=== PATIENT | male | born 2005 | race African-American/Black ===

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

== ENCOUNTER 2024-04-02 12:11 | Inpatient (IN) ==
--- NOTE | 2024-04-02 12:27 | Emergency Department Note ---
Impression & Plan Combative behavior, Intellectual disability, Tourette's syndrome, Autism ED Provider Note NAME: FLORIAN MACK AGE: 18 SEX: M : 2005 ARRIVES VIA: Ambulance INFORMANT: Parents, police officers ED PROVIDER(S): Landen Acosta MD CHIEF COMPLAINT: Violent behavior, history of seizures MEDICAL DECISION MAKING: Patient presents for the above. Additional history was obtained from the father. Patient is compliant with his medications had maybe some mild stuffy nose but no other changes in behavior other than noted today. IV was established and blood work was obtained. Initially the patient did require physical and chemical sedation as the patient would not follow instructions and was combative and trying to bite as well as kick and thrash. The patient did receive IM Ativan 2 mg x 2. After it was ascertained that the patient likely did not have a seizure but just change in behavior the patient was ordered IV Haldol 10 mg as well as IV Benadryl 25 mg. Patient subsequently was able to have an IV placed blood work was obtained CT head and chest x-ray. Patient's blood work is unremarkable. Patient has a normal white count H&H and platelet count kidney function is unremarkable with normal electrolytes and LFTs. Patient CT head and chest x-ray are negative. Patient did have a low- grade temp of 37 7 only had some mild stuffy nose but parents thought this is due to weather changes the patient has normal white count. Parents are concerned about taking the patient home given his behavior. I did speak the on- call hospitalist service Dr. Calderon and the patient was admitted to the medicine service. Critical Care: I have personally spent 47 minutes of critical care time in direct management of this patient. This includes bedside care, interpretation of diagnostic studies, and testing, discussion with consultants, patient, and family members, and other require inpatient management activities. This 47 minutes is in excess of all separately billable procedures. Discussion w/ other healthcare providers: Dr. Calderon inpatient medicine service Prior /Outside records reviewed: None Differential diagnosis: Infection, dehydration, CHI, ICH, seizure, metabolic abnormality, hypo/hyperglycemia, electrolyte imbalance, anemia, UTI, pneumonia, thyroid dysfunction among others were considered. Diagnostics, as interpreted by me: ECG: Sinus tachycardia with first-degree AV block, rate of 110 prolonged AR, normal axis no obvious STEMI. ST elevations noted anteriorly but no reciprocal changes likely repolarization. Cardiac monitoring: An order was placed for continuous cardiac monitoring. The monitor shows a rate of 125 with tachycardic and regular rhythm. Patient was placed on pulse oximetry Medical decision rules: None Imaging studies: I informally interpreted the patient's chest x-ray does not show obvious pneumonia or pneumothorax with formal report to follow. HPI: Much of the history is gathered from police as well as the parents who did present secondarily. The patient reportedly had an outburst of behavior. The patient reportedly had an episode like this about 4 weeks prior. The father had arrived at that time had not unwitnessed seizure at that time but was acting appropriately and the father took him home. Today was initially reported the patient may have had a seizure but after further discussion while the patient was at school today he had an episode of laughing through some director merit system and then became combative and violent. Patient subsequently was brought in here for further evaluation and treatment. When family arrived patient reportedly has been taking his medications. States that he had a little bit of a stuffy nose but no vomiting no diarrhea no cough. He has been acting his normal self. They did report that he did have this episode 4 weeks ago but there was no witnessed seizure at that time. No recent changes in medications or missed doses. He does follow with Rut Galindo with neurology and is to switch from Dr. Nielsen to Dr. Kohli as he is now an adult. Please officer from [facility] had stated that he has known him for the last 2 years and that this episode 4 weeks ago was a change in behavior. States typically does not act like this. PAST MEDICAL HISTORY: See Below PAST SURGICAL HISTORY: See Below SOCIAL HISTORY: See Below HOME MEDICATIONS: See Below ALLERGIES: See Below VITALS: See Below PHYSICAL EXAMINATION: GENERAL: Trying to bite, security trying to help hold the patient still with the patient was trying to thrash about. EYE EXAM: Normal conjunctiva. PERRL, no anisocoria and EOM's grossly intact w/o pain. OROPHARYNX: Moist mucus membranes, grossly normal dentition. NECK: Trachea midline, no stridor. Supple, no nuchal rigidity, no adenopathy, non-tender. No signs of meningismus. FROM of the neck with good chin to chest and neck extension. LUNGS: Clear to auscultation. Normal chest wall mechanics. HEART: Tachycardic and regular, no MRG. ABDOMEN: Abdomen soft, non-tender, no masses, no rebound or guarding. SKIN: No rashes and no bruising. UPPER EXTREMITIES: Upper extremities are grossly normal. LOWER EXTREMITIES: Grossly normal, no edema. NEURO EXAM: Combative not following commands moving all 4 extremities able to speak. Past Med/Surg History Problem List (Updated 04/03/24 @ 08:50 by Landen Acosta MD) Combative behavior (Acute) Altered mental state Intellectual disability (Acute) Autism (Chronic) Tourette's syndrome (Acute) Medical History PDD (pervasive developmental disorder), active Family History Mother Drug abuse Alcohol abuse Social History Smoking Status: Never smoker Second Hand Exposure: No; Do You Dip or Chew Tobacco: No; Hx Alcohol Use: No Hx Substance Use: No Preferred Language: Colombian Communication Ability: Effective Pit Crew Support Worker Required: No Beliefs That Will Affect Care: None marital status details: Lives with adoptive parents, 3 dogs and 2 cats Current Living Situation: Parent Other Information That Helps Us Care for You: Yes (Patient diagnosed with Austism, lives with parents at home) Feels Safe at Home: Yes Safety Concerns: Feels Safe At This Time Assistive Devices: None Allergies Allergies Allergy/AdvReac Type Severity Reaction Status Date / Time lamotrigine [From Lamictal] Allergy Unknown Unknown, Unverified 04/02/24 15:31 on file w/ [facility] valproic acid Allergy Unknown Severe Verified 04/02/24 15:31 aggression Home Meds Home Medications Medication Instructions Recorded Confirmed melatonin 5 mg capsule 5 mg PO HS 12/20/22 04/02/24 multivitamin 1 tab PO DAILY 12/20/22 04/02/24 risperidone 0.5 mg tablet 1.5 mg PO HS 12/20/22 04/02/24 (Risperdal) risperidone 1 mg tablet (Risperdal) 1 mg PO UD 12/20/22 04/02/24 buspirone 15 mg tablet 15 mg PO BID 04/02/24 04/02/24 cholecalciferol (vitamin D3) 10 10 mcg PO DAILY 04/02/24 04/02/24 mcg (400 unit) tablet (Vitamin D3) guanfacine 2 mg tablet 2 mg PO BID 04/02/24 04/02/24 Previous Rx's Medication Instructions Recorded carbamazepine 100 mg chewable 400 mg (4 x 100 mg) PO BID 30 days 03/05/24 tablet #240 tabs clobazam 10 mg tablet 5 mg (1/2 x 10 mg) PO HS #30 tabs 03/18/24 Results & Data (ED) Vital Signs Vital Signs - 24 hr 04/02/24 12:40 04/02/24 12:40 04/02/24 12:40 Temperature 37.7 C H Temperature Source Axillary Pulse Rate 119 H Pulse Rate [Apical] Respiratory Rate 28 H Respiratory Effort / Characteristics Respiratory Depth Respiratory Pattern Tachypnea Blood Pressure 144/86 H Blood Pressure [Right Arm] Blood Pressure Mean 105 Blood Pressure Mean [Right Arm] Pulse Oximetry 97 Oxygen Delivery Method Room Air Room Air Room Air Sepsis New/Unexplained Change in Mental Status Yes Sepsis Action Taken by Nursing No Action Required 04/02/24 14:12 04/02/24 14:25 04/02/24 16:00 Temperature Temperature Source Pulse Rate 120 H Pulse Rate [Apical] 120 H 133 H Respiratory Rate 16 19 Respiratory Effort / Characteristics Non-Labored Spontaneous Respiratory Depth Normal Normal Respiratory Pattern Blood Pressure Blood Pressure [Right Arm] 135/68 116/62 Blood Pressure Mean Blood Pressure Mean [Right Arm] 90 80 Pulse Oximetry 96 98 Oxygen Delivery Method Room Air Room Air Sepsis New/Unexplained Change in Mental Status Sepsis Action Taken by [facility] Medications Current Medication List: was personally reviewed by me Laboratory Data Attestation: I reviewed the patient's lab results. 04/02/24 12:35 04/02/24 12:35 Lab Results 04/02/24 04/02/24 Range/Units 12:35 12:55 WBC 8.78 (4.8-10.8) K/ul RBC 5.07 (4.70-6.10) M/uL Hgb 15.1 (14.0-18.0) g/dl POC Hgb 14.6 (14.0-18.0) g/dl Hct 43.5 (42.0-52.0) % POC Hct 43 (42-52) % MCV 85.8 (80.0-100.0) fL MCH 29.8 (25.0-34.0) pg MCHC 34.7 (32.0-36.0) g/dL RDW Std Deviation 39.1 (36.4-46.3) fL RDW Coeff of Enoc 12.6 (11.5-14.5) % Plt Count 254 (130-400) K/uL MPV 9.8 (9.4-12.4) fL POC Sodium 142 (135-144) mmol/L Sodium 143 (136-145) mmol/L POC Potassium 3.5 (3.3-5.0) mmol/L Potassium 3.5 (3.5-5.1) mmol/L POC Chloride 104 (101-112) mmol/L Chloride 104 (98-107) mmol/L Carbon Dioxide 27 (21-32) mmol/L POC Total CO2 26 (24-31) mmol/L Anion Gap 12 H (3-11) POC Anion Gap 17.0 (16-25) mmol/L POC BUN 9 (7-18) mg/dl BUN 10 (6-23) mg/dl Creatinine 0.88 (0.6-1.4) mg/dl POC Creatinine 0.9 mg/dl Est Cr Clr Drug Dosing Not Reportable eGFR 126.25 BUN/Creatinine Ratio 11.4 (10-20) Glucose 86 (70-99(Fasting)) mg/dl POC Glucose (other) 79 (70-99) mg/dl Calcium 9.8 (8.6-10.3) mg/dl POC Ioniz Calcium Tonya 1.16 mmol/l Phosphorus 2.4 L (2.5-4.9) mg/dl Magnesium 2.1 (1.7-2.4) mg/dl Total Bilirubin 0.3 (0.2-1.0) mg/dl Direct Bilirubin 0.0 (0-0.2) mg/dl AST 35 (13-39) U/L ALT 25 (7-52) U/L Alkaline Phosphatase 87 (34-104) U/L Total Protein 8.4 H (6.0-8.3) gm/dl Albumin 4.8 (3.4-5.0) gm/dl Administered Medications Acetaminophen (Acetaminophen 500 Mg Tab) 500 mg PO Q4H PRN PRN Reason: Pain or Agitation Stop: 05/03/24 08:02 Last Admin: 04/03/24 08:31 Dose: 500 mg Documented By: MAGALY Carbamazepine (Carbamazepine 100 Mg Chew Tab) 400 mg PO BID SHAYLEE Stop: 05/02/24 20:59 Last Admin: 04/02/24 20:32 Dose: 400 mg Documented By: BLAZE Guanfacine HCl (Guanfacine Hcl 1 Mg Tab) 2 mg PO BID SHAYLEE Stop: 05/02/24 20:59 Last Admin: 04/02/24 20:32 Dose: 2 mg Documented By: BLAZE Melatonin (Melatonin 3 Mg Tab) 3 mg PO [facility] Stop: 05/02/24 20:59 Last Admin: 04/02/24 20:32 Dose: 3 mg Documented By: BLAZE Miscellaneous (Order Awaiting Action) 1 each N/A QS [facility] Stop: 05/03/24 00:00 Last Admin: 04/02/24 23:36 Dose: Not Given Documented By: BLAZE Olanzapine (Olanzapine Zydis 5 Mg Orally Dis. Tab) 5 mg PO Q4H PRN PRN Reason: Agitation Stop: 05/03/24 08:09 Last Admin: 04/03/24 08:53 Dose: 5 mg Documented By: MAGALY Risperidone (Risperidone 0.5 Mg Tablet) 1.5 mg PO [facility] Stop: 05/02/24 20:59 Last Admin: 04/02/24 20:32 Dose: 1.5 mg Documented By: BLAZE Discontinued Medications Diphenhydramine HCl (Diphenhydramine 50 Mg/Ml Vial) 25 mg IV NOW STA Stop: 04/02/24 13:13 Last Admin: 04/02/24 13:16 Dose: 25 mg Documented By: SAGRARIO Haloperidol Lactate (Haloperidol Lactate 5 Mg/Ml 1 Ml Vial) 10 mg IV NOW STA Stop: 04/02/24 13:13 Last Admin: 04/02/24 13:17 Dose: 10 mg Documented By: SAGRARIO Haloperidol Lactate (Haloperidol Lactate 5 Mg/Ml 1 Ml Vial) 10 mg IV NOW STA Stop: 04/02/24 16:49 Last Admin: 04/02/24 16:52 Dose: 10 mg Documented By: MARISA Levetiracetam (Levetiracetam 500 Mg/5 Ml Vial) 2,000 mg IV NOW STA Stop: 04/02/24 12:24 Last Admin: 04/02/24 12:36 Dose: 2,000 mg Documented By: SAGRARIO Lorazepam (Lorazepam 2 Mg/1 Ml Vial) 2 mg IM NOW STA Stop: 04/02/24 12:24 Last Admin: 04/02/24 12:31 Dose: 2 mg Documented By: SAGRARIO Lorazepam (Lorazepam 1 Mg/1 Ml Syr Ed Inj Use) 2 mg IV ONE STA Stop: 04/02/24 12:49 Last Admin: 04/02/24 12:52 Dose: 2 mg Documented By: ESTEFANY Lorazepam (Lorazepam 2 Mg/1 Ml Vial) 2 mg IV NOW STA Stop: 04/02/24 16:16 Last Admin: 04/02/24 16:24 Dose: 2 mg Documented By: MARISA Imaging Data Radiologist's Impression: Chest X-Ray 04/02/24 12:23 XR chest 1V portable CLINICAL HISTORY: screener/seizure TECHNIQUE: Single frontal radiograph of the chest was obtained. Comparison: Comparison is made to chest radiograph 08/25/2015 FINDINGS: No lines and tubes are seen. The cardiomediastinal silhouette is normal. The lungs are clear. No evidence of pleural effusion or pneumothorax. IMPRESSION: No acute chest disease. ACT 112: Negative or not required by law. Electronically signed by: Ronnie Niño M.D. 04/02/2024 2:[address] 04/02/24 12:23 CT head/brain wo con CLINICAL HISTORY: 18 years-old Male with ?seizure, combative. Acute seizure- like activity TECHNIQUE: Multiple axial CT images of the head were obtained without contrast. A dose lowering technique was utilized adhering to the principles of ALARA. CT DOSE: 625.8 mGy.cm COMPARISON: None. FINDINGS: No acute intracranial hemorrhage, midline shift, intracranial mass, hydrocephalus, territorial ischemia or abnormal extra-axial collection. The calvarium is intact. Mild mucosal thickening of the paranasal sinuses. Partially imaged root of a left maxillary molar extends into the base of the left maxillary sinus. Mastoid air cells are clear. Unremarkable soft tissues and orbits. IMPRESSION: No acute intracranial abnormality. ACT 112: Negative or not required by law. The above report was generated using voice recognition software. It may contain grammatical, syntax or spelling errors. Electronically signed by: Rian Gray M.D. 04/02/2024 2:38 PM Discharge Plan Visit Data Chief Complaint: Seizure Stated Complaint: SEIZURE ED Provider: Landen Acosta Discharge Problem: Combative behavior, Intellectual disability, Tourette's syndrome, Autism Patient Disposition: Admitted As Inpatient Discharge Instructions Interventions: ED Discharge Assessment Last Done: 04/02/24 17:21
[2024-04-02] MEDS: LORazepam 2 MG/1 ML VIAL IM STA (12:31)
[2024-04-02] MEDS: levETIRAcetam 500 MG/5 ML VIAL IV STA (12:36)
[2024-04-02] MEDS: LORazepam 1 MG/1 ML SYR ED Inj Use IV STA (12:52)
[2024-04-02 12:59] LABS: Hematocrit (blood only) 43.5 % (42.0-52.0); Hemoglobin 15.1 g/dl (14.0-18.0); Mean Corpuscular Hemoglobin 29.8 pg (25.0-34.0); Mean Corpuscular Hgb Conc 34.7 g/dL (32.0-36.0); Mean Corpuscular Volume 85.8 fL (80.0-100.0); Mean Platelet Volume 9.8 fL (9.4-12.4); Platelet Count 254 K/uL (130-400); RDW Coefficient of Variation 12.6 % (11.5-14.5); RDW Standard Deviation 39.1 fL (36.4-46.3); Red Blood Count 5.07 M/uL (4.70-6.10); White Blood Count 8.78 K/ul (4.8-10.8)
[2024-04-02 13:10] LABS: iSTAT Creatinine 0.9 mg/dl; iSTAT Hemoglobin 14.6 g/dl (14.0-18.0); iSTAT Ionized Calcium 1.16 mmol/l; iSTAT Potassium 3.5 mmol/L (3.3-5.0)
[2024-04-02] MEDS: diphenhydrAMINE 50 MG/ML VIAL IV STA (13:16)
[2024-04-02] MEDS: HALOPERIDOL LACTATE 5 MG/ML 1 ML VIAL IV STA ×2 (13:17→16:52)
[2024-04-02 13:27] LABS: Alanine Aminotransferase 25 U/L (7-52); Albumin Level 4.8 gm/dl (3.4-5.0); Alkaline Phosphatase 87 U/L (34-104); Anion Gap 12 (3-11); Aspartate Aminotransferase 35 U/L (13-39); BUN Creatinine Ratio 11.4 (10-20); Bilirubin,Total 0.3 mg/dl (0.2-1.0); Blood Urea Nitrogen 10 mg/dl (6-23); Calcium 9.8 mg/dl (8.6-10.3); Carbon Dioxide 27 mmol/L (21-32); Chloride 104 mmol/L (98-107); Glucose 86 mg/dl (70-99(Fasting)); Magnesium 2.1 mg/dl (1.7-2.4); Phosphorus 2.4 mg/dl (2.5-4.9); Potassium 3.5 mmol/L (3.5-5.1); Sodium 143 mmol/L (136-145); Total Protein 8.4 gm/dl (6.0-8.3)
--- NOTE | 2024-04-02 14:31 | XRay Report ---
XR chest 1V portable CLINICAL HISTORY: screener/seizure TECHNIQUE: Single frontal radiograph of the chest was obtained. Comparison: Comparison is made to chest radiograph 08/25/2015 FINDINGS: No lines and tubes are seen. The cardiomediastinal silhouette is normal. The lungs are clear. No evid ence of pleural effusion or pneumothorax. IMPRESSION: No acute chest disease. ACT 112: Negative or not required by law. Electronically signed by: Ronnie Niño M.D. 04/02/2024 2:30 PM
--- NOTE | 2024-04-02 14:39 | CT Scan Report ---
CT head/brain wo con CLINICAL HISTORY: 18 years-old Male with ?seizure, combative. Acute seizure-like activity TECHNIQUE: Multiple axial CT images of the head were obtained without contrast. A dose lowering tech nique was utilized adhering to the principles of ALARA. CT DOSE: 625.8 mGy.cm COMPARISON: None. FINDINGS: No acute intracranial hemorrhage, midline shift, intracranial mass, hydrocephalus, territorial ischem ia or abnormal extra-axial collection. The calvarium is intact. Mild mucosal thickening of the paranasal sinuses. Partially imaged root of a left maxillary molar extends into the base of the left maxillary sinus. Mastoid air cells are clear . Unremarkable soft tissues and orbits. IMPRESSION: No acute intracranial abnormality. ACT 112: Negative or not required by law. The above report was generated using voice recognition software. It may contain grammatical, syntax o r spelling errors. Electronically signed by: Rian Gray M.D. 04/02/2024 2:38 PM
[2024-04-02] MEDS: LORazepam 2 MG/1 ML VIAL IV STA (16:24)
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
[2024-04-02] MEDS ORDERED: OLANZapine 10 MG/2.1 ML SDV IM PRN (19:34)
[2024-04-02] MEDS: MELATONIN 3 MG TAB PO SCH (20:32)
[2024-04-02] MEDS: carBAMazepine 100 MG CHEW TAB PO SCH (20:32)
[2024-04-02] MEDS: risperiDONE 0.5 MG TABLET PO SCH (20:32)
[2024-04-02] MEDS: guanFACINE HCL 1 MG TAB PO SCH (20:32)
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
[2024-04-03] MEDS: ACETAMINOPHEN 500 MG TAB PO PRN (08:31)
--- NOTE | 2024-04-03 08:36 | Electrocardiogram Report ---
Test Reason : Blood Pressure : */* mmHG Vent. Rate : 110 BPM Atrial Rate : 110 BPM P-R Int : 218 ms QRS Dur : 74 ms QT Int : 324 ms P-R-T Axes : 69 77 49 degrees QTcB Int : 438 ms Sinus tachycardia with 1st degree A-V block ST elevation in Anteroseptal ST elevation, most consistent with repolarization variant Right atrial enlargement Borderline ECG No previous ECGs available Confirmed by Himanshu Siegel ([id number]) on 04/03/2024 8:36:09 AM Referred By: REFERRED SELF Confirmed By: Himanshu Siegel
[2024-04-03] MEDS: OLANZapine ZYDIS 5 MG ORALLY DIS. TAB PO PRN (08:53)
[2024-04-03] MEDS: LORazepam 2 MG/1 ML VIAL IV STA (09:20)
[2024-04-03] MEDS: risperiDONE 1 MG TABLET PO SCH (09:21)
--- NOTE | 2024-04-03 09:59 | Neurology Consultation ---
Date of Consultation April 03, 2024 Assessment & Plan (1) Combative behavior: History of Present Illness Attending Physician: Flor Lewis MD History of Present Illness 18 yo male with known autism and seizure disorder, followed in our neuro clinic. pt had violent outburst and behavior issue. no clear report of seizure. pt this morning alert and active. admission HPI: Patient presents for the above. Additional history was obtained from the father. Patient is compliant with his medications had maybe some mild stuffy nose but no other changes in behavior other than noted today. IV was established and blood work was obtained. Initially the patient did require physical and chemical sedation as the patient would not follow instructions and was combative and trying to bite as well as kick and thrash. The patient did receive IM Ativan 2 mg x 2. After it was ascertained that the patient likely did not have a seizure but just change in behavior the patient was ordered IV Haldol 10 mg as well as IV Benadryl 25 mg. Patient subsequently was able to have an IV placed blood work was obtained CT head and chest x-ray. Patient's blood work is unremarkable. Patient has a normal white count H&H and platelet count kidney function is unremarkable with normal electrolytes and LFTs. Patient CT head and chest x-ray are negative. Patient did have a low- grade temp of 37 7 only had some mild stuffy nose but parents thought this is due to weather changes the patient has normal white count. Parents are concerned about taking the patient home given his behavior. I did speak the on- call hospitalist service Dr. Calderon and the patient was admitted to the medicine service. Allergies Allergy/AdvReac Type Severity Reaction Status Date / Time lamotrigine [From Lamictal] Allergy Unknown Unknown, Unverified 04/02/24 15:31 on file w/ [facility] valproic acid Allergy Unknown Severe Verified 04/02/24 15:31 aggression Home Medications Medication Instructions Recorded Confirmed Type melatonin 5 mg capsule 5 mg PO HS 12/20/22 04/02/24 History multivitamin 1 tab PO DAILY 12/20/22 04/02/24 History risperidone 0.5 mg tablet 1.5 mg PO HS 12/20/22 04/02/24 History (Risperdal) risperidone 1 mg tablet (Risperdal) 1 mg PO UD 12/20/22 04/02/24 History carbamazepine 100 mg chewable 400 mg (4 x 100 mg) PO BID 30 days 03/05/24 04/02/24 Rx tablet #240 tabs clobazam 10 mg tablet 5 mg (1/2 x 10 mg) PO HS #30 tabs 03/18/24 04/02/24 Rx buspirone 15 mg tablet 15 mg PO BID 04/02/24 04/02/24 History cholecalciferol (vitamin D3) 10 10 mcg PO DAILY 04/02/24 04/02/24 History mcg (400 unit) tablet (Vitamin D3) guanfacine 2 mg tablet 2 mg PO BID 04/02/24 04/02/24 History Patient History Medical History PDD (pervasive developmental disorder), active Family History Mother Drug abuse Alcohol abuse Social History Smoking Status: Never smoker Second Hand Exposure: No; Do You Dip or Chew Tobacco: No; Hx Alcohol Use: No Hx Substance Use: No Preferred Language: Romanian Communication Ability: Effective Managed Care Analyst Required: No Beliefs That Will Affect Care: None marital status details: Lives with adoptive parents, 3 dogs and 2 cats Current Living Situation: Parent Other Information That Helps Us Care for You: Yes (Patient diagnosed with Austism, lives with parents at home) Feels Safe at Home: Yes Safety Concerns: Feels Safe At This Time Assistive Devices: None Exam (Neuro) Physical Exam: HEENT: normocephalic grossly Neuro: Mental: Alert, hitting his hands against the rail, not following command (baseline). CN: Full EOM, symmetric face, Motor: No abnormal movements, moving all limbs b/l hitting the bed. Impression: 18 yo male with Autism and intellectual disability with behavioral outburst. Pt without suggestion of seizure. Recommendations: no need for further work up for seizure. psych consult for his behavioral issue. not much to add from neurology Chart reviewed I have spent more than 50% educating patient about potential diagnosis and neurological evaluation and coordinating care with patient's treatment team. Total time spent (including chart review and coordination of care): 35 min (this includes chart review). Results & Data Vital Signs (Past 12 Hours) Vital Signs Pulse 04/02/24 22:24 82 PG Care Time/CCT Total # of Minutes Spent Total Time Spent with Patient: Total time spent is greater than 50% in coordination of care (as documented) at patient's floor/unit and/or counseling patient: Coding Level of Care Code 39473 IN/OBS CONSULT LVL 2,35M Diagnoses Combative behavior R46.89
[2024-04-03 11:23] LABS: Appearance Urine Clear (Clear); Bilirubin Urine Negative (Negative); Blood Urine Negative (Negative); Color Urine Yellow; Glucose Urine UA Negative (Negative); Ketones Urine Negative (Negative); Leukocyte Esterase Urine Negative (Negative); Nitrite Urine Negative (Negative); Protein Urine Negative (Negative); Specific Gravity Urine 1.006 (1.000-1.030); Urobilinogen Urine Negative (Negative)
[2024-04-03 11:45] LABS: Amphetamines+Metham, Urine Neg (Neg); Barbiturates, Urine Neg (Neg); Benzodiazepine, Urine Neg (Neg); Cocaine, Urine Neg (Neg); Fentanyl, Urine Neg (Neg); MDMA (Ecstacy), Urine Neg (Neg); Marijuana, Urine Neg (Neg); Methadone, Urine Neg (Neg); Opiate, Urine Neg (Neg); Phencyclidine, Urine Neg (Neg)
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
[2024-04-03] MEDS: HALOPERIDOL LACTATE 5 MG/ML 1 ML VIAL IV STA (14:55)
[2024-04-03] MEDS: cloBAZam 10 MG TABLET PO SCH (20:41)
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
[2024-04-04] MEDS: OLANZapine 10 MG/2.1 ML SDV IM PRN (09:35)
[2024-04-04] MEDS: OLANZapine 10 MG/2.1 ML SDV IM ONE (16:33)
--- NOTE | 2024-04-04 17:25 | Communication Note ---
Date of Service: April 04, 2024 Notified by nursing at 1640 that patient was severely agitated. Chewing through bed sheets and rail guards. Additional 5mg Zyprexa given IM. Patient is not tolerating tele monitor and not able to have EKG at this time, therefore accurate QTc cannot be measured. Spoke with recreational therapy technician and last patient was on monitor was 0730 this am. QTc at that time was 414. Dr. Chne was contacted for further recommendations. Plan going forward will be Thorazine 12.5mg IM PRN and to attempt to place patient on monitor or obtain EKG if patient is calm and can tolerate. I was then contacted again by nursing at 1722 that patient remained agitated as above and was then starting to chew the mattress itself. Order was given for Thorazine 12.5mg IM at that time. Will continue to reassess patient. Patient remains 1:1 and in 4 point restraints. Resident Activity Tracking Resident Involvement: Resident Care Provided Care Provided: Adult Hospital Medicine
[2024-04-04] MEDS: chlorproMAZINE HCL 25 MG/ML AMP IM PRN (17:45)
[2024-04-04] MEDS: risperiDONE 2 MG TABLET PO SCH (20:00)
[2024-04-04] MEDS: chlorproMAZINE HCL 25 MG/ML AMP IV ONE (21:14)
--- NOTE | 2024-04-05 04:28 | Communication Note ---
Date of Service: April 05, 2024 Patient seen and examined at bedside 0200. Resting peacefully w/ unlabored breathing, clinically well perfused. Restraints ongoing. Did require additional now dose of Thorazine 12.5 mg at 2113.
[2024-04-05] MEDS: risperiDONE 0.5 MG TABLET PO SCH (08:47)
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
[2024-04-05] MEDS: POLYETHYLENE (MIRALAX) 17 GM PACK PO SCH (14:53)
[2024-04-05] MEDS: chlorproMAZINE HCL 25 MG/ML AMP IM SCH (19:24)
--- NOTE | 2024-04-06 11:12 | Hospitalist Progress Note ---
"Date of Service April 06, 2024 Assessment & Plan (1) Altered mental state: (2) Intellectual disability: (3) Autism: (4) Constipation: Plan Altered Mental State | Agitation/Aggression -Patient with history of ASD, intellectual disability, tourette's and seizure disorder -Per chart review, police were called to the patient's school due to aggressive behavior which lead to evaluation in ED -Violent and combative which is unlike his normal behavior, per his parents this is the worst he has been. Increasing combativeness in the past month -Received Haldol 10mg IV on admission, was able to rest overnight afterwards -No infectious source found despite mildly elevated temp and historically does not react like this with infections -UA negative today as well as negative urine tox screen -Minimally verbal at baseline but able to tell his parents what he needs -Continues to require restraints for safety of patient and staff -Patient's dad notes that patient has perviously completed GeneSight testing with Dr. Khan. Denies any known triggers for his current behavior but reports he had significant history of trauma -Psychiatry consulted. Recommendations as below: -Consider EEG. Neurology evaluation (as below) indicating a lower suspicion for seizure activity as etiology of behavior -Continue risperidone, Guanfacine, melatonin, carbamazepine -Consider increase of risperdone to 1.5mg qAM and 2mg qHS - this was done beginning with HS dose 04/04/24 -Avoid Haldol as this can cause akathisia or EPS which can worsen restlessness and muscle pain -If concern for muscle stiffness/acute dystonia arises then give: Benadryl 50mg IM x1 STAT For behavioral emergency would use: * Thorazine seems more effective than Zyprexa, * Thorazine 12.5mg IM PRN, avoid exceeding 50mg in 24hrs * QTc remains less than 500 on monitor -Continue scheduled Thorazine, awaiting further psychiatry recommendations. -Consider switch to PO if patient continues to be cooperative -Remove restraints as tolerated Note: Upon discussion between case management and parents, family does not feel that they will be able to take the patient home with his current level of aggression and would like to pursue options for placement. Paperwork initiated by case management for MA-51 evaluation to determine eligibility for intermediate care services, to be completed by attending physician. 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, 3-4 episodes in his lifetime -Received Keppra in the ER -Previously follows with [facility], now following with Mary Freitas ([facility] [place] [facility] -Current home meds include carbamazepine 400mg po BID, clobazam 10mg 1/2 tab po qhs -Neurology consulted, appreciate recommendations -Upon evaluation today, neurology has lower suspicion for current seizure activity and recommending psych evaluation Constipation -Miralax 34g BID with juice VTE Prophylaxis - low risk Diet - safe tray Code Status: Full Code Admission and Anticipated Discharge Date Admission Date: April 02, 2024 Supervising Physician Co-Signing Physician Notes Attending Physician Supervision Note: I independently interviewed and examined the patient and verified the blackwell history and physical, reviewed labs and image studies and agree with findings and care plan noted above. Doing much better this am. Off restraints. Responsive. Had a bowel movement this am. Acute behavior management - Improved. - meds outlined as above if needed again. Seizure - Has history of seizure activities while he was being weaned off of Tegretol and due to being seizure free and later weaning off clobazam. - No seizure concern per neuro. ASA - risperidone dose increased as above after consulting with psych. Case management working on placement. Subjective Patient seen and evaluated at bedside this morning. No acute events overnight. Since starting scheduled thorazine patient has been taking his PO medications and has been much more cooperative. This am leg restraints were removed. Patient was in bed, calm, and interactive with staff. Review of Systems Review of Systems: reviewed, per HPI Physical Exam Physical Exam: Constitutional: awake, interactive, leg restraints removed HEENT: NCAT, no conjunctival injection CV: clinically well perfused Resp: no increased WOB GI: non distended MSK: no gross deformities appreciated Skin: warm, dry, no rash appreciated Neuro: alert Results & Data Results & Data Vital Signs (Past 12 Hours) Vital Signs Temp Pulse Resp BP Pulse Ox O2 Del Method 04/06/24 07:07 36.6 C 80 19 115/72 100 Room Air 04/06/24 02:30 36.6 C 75 20 113/72 100 Room Air Resident Activity Tracking Resident Involvement: Resident Care Provided Care Provided: Adult Hospital Medicine"
[2024-04-06] MEDS: OLANZapine 10 MG/2.1 ML SDV IM ONE (12:13)
--- NOTE | 2024-04-06 22:57 | Electrocardiogram Report ---
Test Reason : Blood Pressure : */* mmHG Vent. Rate : 69 BPM Atrial Rate : 69 BPM P-R Int : 182 ms QRS Dur : 92 ms QT Int : 368 ms P-R-T Axes : 62 80 58 degrees QTcB Int : 394 ms Sinus rhythm with marked sinus arrhythmia ST elevation, consider early repolarization Borderline ECG When compared with ECG of 02-Apr-2024 17:34, [place] interval has decreased Vent. rate has decreased by 41 bpm Confirmed by Lloyd May ([id number]) on 04/06/2024 10:56:42 PM Referred By: REFERRED SELF Confirmed By: Lloyd May
--- NOTE | 2024-04-06 22:58 | Electrocardiogram Report ---
Test Reason : Blood Pressure : */* mmHG Vent. Rate : 95 BPM Atrial Rate : 95 BPM P-R Int : 164 ms QRS Dur : 76 ms QT Int : 324 ms P-R-T Axes : 62 62 57 degrees QTcB Int : 407 ms Normal sinus rhythm Possible Left atrial enlargement Possible Acute pericarditis Abnormal ECG When compared with ECG of 05-Apr-2024 20:52, No significant change was found Confirmed by Lloyd May ([id number]) on 04/06/2024 10:58:30 PM Referred By: REFERRED SELF Confirmed By: Lloyd May
[2024-04-07] MEDS ORDERED: chlorproMAZINE HCL 25 MG/ML AMP IM PRN (01:21)
--- NOTE | 2024-04-07 09:45 | Hospitalist Progress Note ---
"Date of Service April 07, 2024 Assessment & Plan (1) Altered mental state: (2) Intellectual disability: (3) Autism: (4) Constipation: Plan Altered Mental State | Agitation/Aggression -Patient with history of ASD, intellectual disability, tourette's and seizure disorder -Per chart review, police were called to the patient's school due to aggressive behavior which lead to evaluation in ED -Violent and combative which is unlike his normal behavior, per his parents this is the worst he has been. Increasing combativeness in the past month -Received Haldol 10mg IV on admission, was able to rest overnight afterwards -No infectious source found despite mildly elevated temp and historically does not react like this with infections -UA negative today as well as negative urine tox screen -Minimally verbal at baseline but able to tell his parents what he needs -Continues to require restraints for safety of patient and staff -Patient's dad notes that patient has perviously completed GeneSight testing with Dr. Khan. Denies any known triggers for his current behavior but reports he had significant history of trauma -Psychiatry consulted. Recommendations as below: -Consider EEG. Neurology evaluation (as below) indicating a lower suspicion for seizure activity as etiology of behavior -Continue risperidone, Guanfacine, melatonin, carbamazepine -Consider increase of risperdone to 1.5mg qAM and 2mg qHS - this was done beginning with HS dose 04/04/24 -Avoid Haldol as this can cause akathisia or EPS which can worsen restlessness and muscle pain -If concern for muscle stiffness/acute dystonia arises then give: Benadryl 50mg IM x1 STAT For behavioral emergency would use: * Thorazine seems more effective than Zyprexa, * Thorazine 12.5mg IM PRN, avoid exceeding 50mg in 24hrs * QTc remains less than 500 on monitor Note: Upon discussion between case management and parents, family does not feel that they will be able to take the patient home with his current level of aggression and would like to pursue options for placement. Paperwork initiated by case management for MA-51 evaluation to determine eligibility for superintendent terminal care services, to be completed by attending physician. 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, 3-4 episodes in his lifetime -Received Keppra in the ER -Previously follows with [facility], now following with Mary Freitas ([facility] [place] [facility]) -Current home meds include carbamazepine 400mg po BID, clobazam 10mg 1/2 tab po qhs -Neurology consulted, appreciate recommendations -Upon evaluation today, neurology has lower suspicion for current seizure activity and recommending psych evaluation Constipation -Miralax 34g BID with juice VTE Prophylaxis - low risk Diet - safe tray Code Status: Full Code Admission and Anticipated Discharge Date Admission Date: April 02, 2024 Supervising Physician Co-Signing Physician Notes I personally examined the patient and verified all blackwell points of history and exam, discussed case, and agree with decision making with Dr Camila JAMISON present pt sleeping - notes he ate well, has been calm, had just said that he was tired vitals noted sleeping comfortably no distress Acute behavior management - Improved. - meds if needed again. Seizure - Has history of seizure activities while he was being weaned off of Tegretol and due to being seizure free and later weaning off clobazam. - No seizure concern per neuro. ASA - risperidone dose increased as above after consulting with psych. Case management working on placement. stable for medical Subjective Patient seen and evaluated at bedside this morning. No acute events overnight. Since starting scheduled thorazine patient has been taking his PO medications and has been much more cooperative. This am leg restraints were removed. Patient was in bed, calm, and interactive with staff. Review of Systems Review of Systems: reviewed, per HPI Physical Exam Physical Exam: Constitutional: awake, interactive, leg restraints removed HEENT: NCAT, no conjunctival injection CV: clinically well perfused Resp: no increased WOB GI: non distended MSK: no gross deformities appreciated Skin: warm, dry, no rash appreciated Neuro: alert Results & Data Results & Data Vital Signs (Past 12 Hours) Vital Signs Temp Pulse Resp BP Pulse Ox O2 Del Method 04/07/24 06:55 37.0 C 85 20 125/79 100 Room Air 04/07/24 03:30 37.0 C 85 18 107/68 99 Room Air 04/06/24 22:41 37.3 C 96 H 18 122/70 97 Room Air Resident Activity Tracking Resident Involvement: Resident Care Provided Care Provided: Adult Hospital Medicine"
--- NOTE | 2024-04-07 16:42 | Billing Data ---
Date of Service April 07, 2024 Coding Level of Care Code 78728 SUB INP/OBS CARE
--- NOTE | 2024-04-08 05:58 | Electrocardiogram Report ---
Test Reason : Blood Pressure : */* mmHG Vent. Rate : 90 BPM Atrial Rate : 90 BPM P-R Int : 164 ms QRS Dur : 76 ms QT Int : 334 ms P-R-T Axes : 67 71 50 degrees QTcB Int : 408 ms Normal sinus rhythm Possible Acute pericarditis vs early repolarization Normal ECG When compared with ECG of 06-Apr-2024 12:08, No significant change was found Confirmed by Lloyd May ([id number]) on 04/08/2024 5:58:14 AM Referred By: REFERRED SELF Confirmed By: Lloyd May
--- NOTE | 2024-04-08 10:29 | Hospitalist Progress Note ---
"Date of Service April 08, 2024 Assessment & Plan (1) Altered mental state: (2) Intellectual disability: (3) Autism: (4) Constipation: Plan Altered Mental State | Agitation/Aggression -Patient with history of ASD, intellectual disability, tourette's and seizure disorder -Per chart review, police were called to the patient's school due to aggressive behavior which lead to evaluation in ED -Violent and combative which is unlike his normal behavior, per his parents this is the worst he has been. Increasing combativeness in the past month -Received Haldol 10mg IV on admission, was able to rest overnight afterwards -No infectious source found despite mildly elevated temp and historically does not react like this with infections -UA negative today as well as negative urine tox screen -Minimally verbal at baseline but able to tell his parents what he needs -Continues to require restraints for safety of patient and staff -Patient's dad notes that patient has perviously completed GeneSight testing with Dr. Khan. Denies any known triggers for his current behavior but reports he had significant history of trauma -Psychiatry consulted. Recommendations as below: -Consider EEG. Neurology evaluation (as below) indicating a lower suspicion for seizure activity as etiology of behavior -Continue risperidone, Guanfacine, melatonin, carbamazepine -Consider increase of risperdone to 1.5mg qAM and 2mg qHS - this was done beginning with HS dose 04/04/24 -Avoid Haldol as this can cause akathisia or EPS which can worsen restlessness and muscle pain -If concern for muscle stiffness/acute dystonia arises then give: Benadryl 50mg IM x1 STAT For behavioral emergency would use: * Thorazine seems more effective than Zyprexa, * Thorazine 12.5mg IM PRN, avoid exceeding 50mg in 24hrs * QTc remains less than 500 on monitor Note: Upon discussion between case management and parents, family does not feel that they will be able to take the patient home with his current level of aggression and would like to pursue options for placement. Paperwork initiated by case management for MA-51 evaluation to determine eligibility for terminal system operator care services, to be completed by attending physician. 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, 3-4 episodes in his lifetime -Received Keppra in the ER -Previously follows with [facility], now following with Mary Freitas ([facility] [place] [place] [facility]) -Current home meds include carbamazepine 400mg po BID, clobazam 10mg 1/2 tab po qhs -Neurology consulted, appreciate recommendations -Upon evaluation , neurology has lower suspicion for current seizure activity and recommending psych evaluation Constipation -Miralax 34g BID with juice VTE Prophylaxis - low risk Diet - safe tray Code Status: Full Code Admission and Anticipated Discharge Date Admission Date: April 02, 2024 Supervising Physician Co-Signing Physician Notes I personally examined the patient and verified all blackwell points of history and exam, discussed case, and agree with decision making with Dr Jensen similar to yesterday - sleeping comfortably no distress and staffing notes no needs vitals noted sleeping comfortably no distress Acute behavior management - Improved. - meds if needed again. Seizure - Has history of seizure activities while he was being weaned off of Tegretol and due to being seizure free and later weaning off clobazam. - No seizure concern per neuro. ASA - risperidone dose increased as above after consulting with psych. Case management working on placement, appreciate efforts. stable for medical Subjective Patient seen and evaluated at bedside this morning. Patient was in bed, calm, and interactive with staff. No any new concerns. Physical Exam Physical Exam: Constitutional: awake, interactive, leg restraints removed HEENT: NCAT, no conjunctival injection CV: clinically well perfused Resp: no increased WOB GI: non distended MSK: no gross deformities appreciated Skin: warm, dry, no rash appreciated Neuro: alert Results & Data Results & Data Vital Signs (Past 12 Hours) Vital Signs Temp Pulse Resp BP Pulse Ox O2 Del Method 04/08/24 08:02 37.0 C 100 H 18 131/80 96 Room Air 04/07/24 22:36 36.8 C 85 16 120/82 98 Room Air"
--- NOTE | 2024-04-08 14:30 | Billing Data ---
Date of Service April 08, 2024 Coding Level of Care Code 38784 SUB INP/OBS CARE
--- NOTE | 2024-04-08 23:32 | Electrocardiogram Report ---
Test Reason : Blood Pressure : */* mmHG Vent. Rate : 86 BPM Atrial Rate : 86 BPM P-R Int : 180 ms QRS Dur : 72 ms QT Int : 336 ms P-R-T Axes : 112 109 154 degrees QTcB Int : 402 ms Normal sinus rhythm Limb lead reversal Possible Acute pericarditis vs early repolarization Abnormal ECG When compared with ECG of 07-Apr-2024 05:50, Limb lead reversal is now present Confirmed by Lloyd May ([id number]) on 04/08/2024 11:31:32 PM Referred By: REFERRED SELF Confirmed By: Lloyd May
--- NOTE | 2024-04-09 12:08 | Hospitalist Progress Note ---
"Date of Service April 09, 2024 Assessment & Plan (1) Altered mental state: (2) Intellectual disability: (3) Autism: (4) Constipation: Plan Altered Mental State | Agitation/Aggression -Patient with history of ASD, intellectual disability, tourette's and seizure disorder -Per chart review, police were called to the patient's school due to aggressive behavior which lead to evaluation in ED -Violent and combative which is unlike his normal behavior, per his parents this is the worst he has been. Increasing combativeness in the past month -Received Haldol 10mg IV on admission, but doesn't require it thereafter. -UA negative today as well as negative urine tox screen -Minimally verbal at baseline but able to tell his parents what he needs - Doesn't require any restrains and medicine now. - Thorazine 12.5 mg PRN q6H if patient got agitated again. Note: Upon discussion between case management and parents, family does not feel that they will be able to take the patient home with his current level of aggression and would like to pursue options for placement. Paperwork initiated by case management for MA-51 evaluation to determine eligibility for correction care services, to be completed by attending physician. 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, 3-4 episodes in his lifetime -Received Keppra in the ER -Previously follows with [facility], now following with Mary Freitas ([facility] [place] [facility]) -Current home meds include carbamazepine 400mg po BID, clobazam 10mg 1/2 tab po qhs -Upon evaluation , neurology has lower suspicion for current seizure activity.Later weaning off clobazam. -Risperidone dose has been increased after consulting with Psychiatrist. Constipation -Miralax 34g BID with juice VTE Prophylaxis - low risk Diet - safe tray Code Status: Full Code Admission and Anticipated Discharge Date Admission Date: April 02, 2024 Supervising Physician Co-Signing Physician Notes I personally examined the patient and verified all blackwell points of history and exam, discussed case, and agree with decision making with Dr Camila mendez, no complaints, playing video games. vitals noted nad heent nc at mmm breathing unlabored no accessory muscles good effort skin no rashes no pallor or icterus Acute behavior management - Improved. - meds if needed again. Seizure - Has history of seizure activities while he was being weaned off of Tegretol and due to being seizure free and later weaning off clobazam. - No seizure concern per neuro. ASA - risperidone dose increased as above after consulting with psych. Case management working on placement, appreciate efforts. no new issues Subjective Patient seen and evaluated at bedside this morning. Patient was in bed, calm,playing video games and interactive with staff. No any new concerns. Review of Systems Review of Systems: reviewed, per HPI Physical Exam Physical Exam: Constitutional: awake, interactive, leg restraints removed HEENT: NCAT, no conjunctival injection CV: clinically well perfused Resp: no increased WOB GI: non distended MSK: no gross deformities appreciated Skin: warm, dry, no rash appreciated Neuro: alert Results & Data Results & Data Vital Signs (Past 12 Hours) Vital Signs Temp Pulse Resp BP Pulse Ox O2 Del Method 04/09/24 11:54 36.9 C 79 19 122/86 97 Room Air 04/09/24 08:31 36.9 C 84 18 113/69 99 Room Air 04/09/24 05:40 37.0 C 95 H 16 120/79 100 Room Air"
--- NOTE | 2024-04-09 13:05 | Billing Data ---
Date of Service April 09, 2024 Coding Level of Care Code 40562 SUB INP/OBS CARE
--- NOTE | 2024-04-09 19:07 | Electrocardiogram Report ---
Test Reason : Blood Pressure : */* mmHG Vent. Rate : 94 BPM Atrial Rate : 94 BPM P-R Int : 308 ms QRS Dur : 74 ms QT Int : 310 ms P-R-T Axes : 47 74 43 degrees QTcB Int : 387 ms Sinus rhythm with 1st degree A-V block Voltage criteria for left ventricular hypertrophy Early repolarization Abnormal ECG When compared with ECG of 08-Apr-2024 06:33, [place] interval has increased QRS axis Shifted left Limb lead reversal is no longer present Confirmed by Lloyd May ([id number]) on 04/09/2024 7:07:16 PM Referred By: REFERRED SELF Confirmed By: Lloyd May
--- NOTE | 2024-04-10 17:37 | Hospitalist Progress Note ---
"Date of Service April 10, 2024 Assessment & Plan (1) Altered mental state: (2) Intellectual disability: (3) Autism: (4) Constipation: Plan Altered Mental State | Agitation/Aggression -Patient with history of ASD, intellectual disability, tourette's and seizure disorder -Per chart review, police were called to the patient's school due to aggressive behavior which lead to evaluation in ED -Violent and combative which is unlike his normal behavior, per his parents this is the worst he has been. Increasing combativeness in the past month -Received Haldol 10mg IV on admission, but doesn't require it thereafter. -UA negative today as well as negative urine tox screen -Minimally verbal at baseline but able to tell his parents what he needs - Doesn't require any restrains and medicine now. - Thorazine 12.5 mg PRN q6H if patient got agitated again. Note: Upon discussion between case management and parents, family does not feel that they will be able to take the patient home with his current level of aggression and would like to pursue options for placement. Paperwork initiated by case management for [facility] evaluation to determine eligibility for residential care services, to be completed by attending physician. 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 -Risperidone dose has been increased after consulting with Psychiatrist. Constipation -Miralax 34g BID with juice VTE Prophylaxis - low risk Diet - safe tray Code Status: Full Code Admission and Anticipated Discharge Date Admission Date: April 02, 2024 Supervising Physician Co-Signing Physician Notes I personally examined the patient and verified all blackwell points of history and exam, discussed case, and agree with decision making with Dr Cmaila Walker playing video games laughing. No new issues vitals noted nad heent nc at mmm breathing unlabored no accessory muscles good effort skin no rashes no pallor or icterus Acute behavior management - Improved. - meds if needed again. Seizure - Has history of seizure activities while he was being weaned off of Tegretol and due to being seizure free and later weaning off clobazam. - No seizure concern per neuro. ASA - risperidone dose increased as above after consulting with psych. Case management working on placement, appreciate efforts. continue current course Subjective Patient seen and evaluated at bedside this morning. Patient was in bed, calm,playing video games and interactive with staff. No any new concerns. Review of Systems Review of Systems: reviewed, per HPI Physical Exam Physical Exam: Constitutional: awake, interactive, leg restraints removed HEENT: NCAT, no conjunctival injection CV: clinically well perfused Resp: no increased WOB GI: non distended MSK: no gross deformities appreciated Skin: warm, dry, no rash appreciated Neuro: alert Results & Data Results & Data Vital Signs (Past 12 Hours) Vital Signs Temp Pulse Resp BP Pulse Ox O2 Del Method 04/10/24 14:04 36.5 C 79 18 113/61 94 Room Air 04/10/24 11:04 36.5 C 79 18 123/74 98 Room Air 04/10/24 08:03 36.5 C 80 20 117/77 98 Room Air"
--- NOTE | 2024-04-10 18:31 | Billing Data ---
Date of Service April 10, 2024 Coding Level of Care Code 50658 SUB INP/OBS CARE
--- NOTE | 2024-04-11 06:37 | Hospitalist Progress Note ---
"Date of Service April 11, 2024 Assessment & Plan (1) Altered mental state: (2) Intellectual disability: (3) Autism: (4) Constipation: Plan Altered Mental State | Agitation/Aggression -Patient with history of ASD, intellectual disability, tourette's and seizure disorder -Per chart review, police were called to the patient's school due to aggressive behavior which lead to evaluation in ED -Violent and combative which is unlike his normal behavior, per his parents this is the worst he has been. Increasing combativeness in the past month -Received Haldol 10mg IV on admission, but doesn't require it thereafter. -UA negative today as well as negative urine tox screen -Minimally verbal at baseline but able to tell his parents what he needs - Doesn't require any restrains and medicine now. - Thorazine 12.5 mg PRN q6H if patient got agitated again. Note: Upon discussion between case management and parents, family does not feel that they will be able to take the patient home with his current level of aggression and would like to pursue options for placement. He is accepted at a personal long term on 04/26/24. 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 -Risperidone dose has been increased after consulting with Psychiatrist. Constipation -Miralax 34g BID with juice VTE Prophylaxis - low risk Diet - safe tray Code Status: Full Code Admission and Anticipated Discharge Date Admission Date: April 02, 2024 Supervising Physician Co-Signing Physician Notes I personally examined the patient and verified all blackwell points of history and exam, discussed case, and agree with decision making with Dr Camila diaz. no new issues. vitals noted nad sleeping comfortably. heent nc at mmm breathing unlabored no accessory muscles good effort skin no rashes no pallor or icterus Acute behavior management - Improved. - meds if needed again. Seizure - Has history of seizure activities while he was being weaned off of Tegretol and due to being seizure free and later weaning off clobazam. - No seizure concern per neuro. ASA - risperidone dose increased as above after consulting with psych. Case management working on placement, appreciate efforts. continue current course, no changes today Subjective Patient seen and evaluated at bedside this morning. Patient was in bed, calm, playing video games and interactive with staff. No any new concerns. Review of Systems Review of Systems: reviewed, per HPI Physical Exam Physical Exam: Constitutional: awake, interactive, leg restraints removed HEENT: NCAT, no conjunctival injection CV: clinically well perfused Resp: no increased WOB GI: non distended MSK: no gross deformities appreciated Skin: warm, dry, no rash appreciated Neuro: alert Results & Data Results & Data Vital Signs (Past 12 Hours) Vital Signs Temp Pulse Resp BP Pulse Ox O2 Del Method 04/10/24 22:33 36.9 C 76 16 123/76 98 Room Air 04/10/24 19:45 Room Air"
--- NOTE | 2024-04-11 18:58 | Billing Data ---
Date of Service April 11, 2024 Coding Level of Care Code 70116 SUB INP/OBS CARE
--- NOTE | 2024-04-12 07:40 | Hospitalist Progress Note ---
"Date of Service April 12, 2024 Assessment & Plan (1) Altered mental state: (2) Intellectual disability: (3) Autism: (4) Constipation: Plan Altered Mental State | Agitation/Aggression -Patient with history of ASD, intellectual disability, tourette's and seizure disorder. At initial episode on 04/02/24 police were called to the patient's school due to aggressive behavior which lead to evaluation in ED. Per pt's parents, violent and combative which is unlike his normal behavior, and this is the worst he has been. Increasing combativeness in the past month. He received Haldol 10mg IV on admission and restraints were used for pt's safety. Minimally verbal at baseline but able to tell his parents what he needs. Pt has not required Haldol or restraints since 04/06/24. - Continue Risperidone 1.5 mg qam and 2mg qhs - Continue guanfacine 2mg BID and melatonin 3mg qhs. - Continue thorazine 12.5 mg PRN q6H if patient got agitated again. - Per case mgt on 04/11/24, pt is accepted at a personal assisted on 04/26/24. They don't have adequate staff until then Seizure disorder Initial concern of possible absence seizures setting off current episode. 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 Following with Mary Freitas ([facility] [place] [facility]). Received Keppra in the ER on 04/02/24 - Continue home meds of carbamazepine 400mg po BID, clobazam 10mg 1/2 tab po qhs - May consider weaning off clobazam per neurology evaluation Constipation -Miralax 34g BID with juice VTE Prophylaxis - low risk Diet - safe tray Code Status: Full Code Admission and Anticipated Discharge Date Admission Date: April 02, 2024 Supervising Physician Co-Signing Physician Notes I personally examined the patient and verified all blackwell points of history and exam, discussed case, and agree with decision making with Dr Parsons smilatisha - putting pillow on windowsill and then using bedsheet like a whip to knock it off, enjoying this a good deal. vitals noted nad sleeping comfortably. heent nc at mmm breathing unlabored no accessory muscles good effort skin no rashes no pallor or icterus Acute behavior management - Improved. - meds if needed again. has not needed. Seizure - Has history of seizure activities while he was being weaned off of Tegretol and due to being seizure free and later weaning off clobazam. - No seizure concern per neuro. ASA - risperidone dose increased as above after consulting with psych. Case management working on placement, appreciate efforts. continue current course, no changes today Subjective Pt is a 18 yo male with PMH of ASD and intellectual disability with recent onset of combative behavior. Pt also has history of seizures. This morning, pt was active walking around in his room. Pt has limited verbal skills, but trying to communicate with staff and provider. He found a cafeteria to-go container and the trash and placed it under the leg of a step stool in his room and proceeded to smash it by striking his foot on top of the step stool. Pt was easily redirected, but c/o pain at his right foot after this incident. Review of Systems Review of Systems: reviewed, per HPI Physical Exam Physical Exam: Constitutional: awake, interactive, leg restraints removed HEENT: NCAT, no conjunctival injection CV: Regular rate and rhythm, no murmurs appreciated Resp: Normal breath sounds bilaterally, no wheezes, rales or rhonchi GI: non distended, normal bowel sounds, MSK: no gross deformities appreciated, No MSK abnormalities at feet or ankles following incident witnessed in pt's room today Skin: warm, dry, no rash appreciated Neuro: alert Results & Data Results & Data Vital Signs (Past 12 Hours) Vital Signs Temp Pulse Resp BP Pulse Ox Pulse Ox O2 Del Method 04/11/24 22:22 36.9 C 123 H 16 149/88 H 98 Room Air 04/11/24 21:31 98 O2 Del Method 04/11/24 22:22 04/11/24 21:31 Room Air Resident Activity Tracking Resident Involvement: Resident Care Provided Care Provided: Adult Hospital Medicine"
--- NOTE | 2024-04-12 15:08 | Billing Data ---
Date of Service April 12, 2024 Coding Level of Care Code 53783 SUB INP/OBS CARE
--- NOTE | 2024-04-13 06:55 | Hospitalist Progress Note ---
"Date of Service April 13, 2024 Assessment & Plan (1) Altered mental state: (2) Intellectual disability: (3) Autism: (4) Constipation: Plan Altered Mental State | Agitation/Aggression -Patient with history of ASD, intellectual disability, tourette's and seizure disorder. At initial episode on 04/02/24 police were called to the patient's school due to aggressive behavior which lead to evaluation in ED. Per pt's parents, violent and combative which is unlike his normal behavior, and this is the worst he has been. Increasing combativeness in the past month. He received Haldol 10mg IV on admission and restraints were used for pt's safety. Minimally verbal at baseline but able to tell his parents what he needs. Pt has not required Haldol or restraints since 04/06/24. - Continue Risperidone 1.5 mg qam and 2mg qhs - Continue guanfacine 2mg BID and melatonin 3mg qhs. - Thorazine 12.5 mg PRN q6H if patient got agitated again. - Continue 1:1 sitter - Per case mgt on 04/11/24, pt [facility]. They don't have adequate staff until then Seizure disorder Initial concern of possible absence seizures setting off current episode. 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 Following with Mray Freitas [place] [place] [facility] Received Keppra in the ER on 04/02/24 - Continue home meds of carbamazepine 400mg po BID, clobazam 10mg 1/2 tab po qhs - May consider weaning off clobazam per neurology evaluation Constipation -Miralax 34g BID with juice VTE Prophylaxis - low risk Diet - safe tray Code Status: Full Code Admission and Anticipated Discharge Date Admission Date: April 02, 2024 Supervising Physician Co-Signing Physician Notes pt briefly seen but was getting cleaned up, case d/w dr bryant. tried to see pt several times today but he was in bathroom getting cleaned up. appeared to be doing well. Acute behavior management - Improved. - meds if needed again. has not needed. Seizure - Has history of seizure activities while he was being weaned off of Tegretol and due to being seizure free and later weaning off clobazam. - No seizure concern per neuro. ASA - risperidone dose increased as above after consulting with psych. Case management working on placement, appreciate efforts. continue current course, no changes today Subjective Pt is a 18 yo male with PMH of ASD and intellectual disability, hx of seizures and tourette's syndrome with recent onset of combative behavior. This morning, pt was active walking around in his room and appears calm. Pt has limited verbal skills, but cooperative for exam. Review of Systems Review of Systems: reviewed, per HPI Physical Exam Physical Exam: Constitutional: awake, interactive, HEENT: NCAT, no conjunctival injection CV: Regular rate and rhythm, no murmurs appreciated Resp: Normal breath sounds bilaterally, no wheezes, rales or rhonchi GI: non distended, normal bowel sounds, MSK: no gross deformities appreciated, moves all 4 extremities without limitation Skin: warm, dry, no rash appreciated Neuro: alert Results & Data Results & Data Vital Signs (Past 12 Hours) Vital Signs Temp Pulse Resp BP Pulse Ox O2 Del Method 04/12/24 20:21 36.6 C 91 H 16 144/56 H 98 Room Air Resident Activity Tracking Resident Involvement: Resident Care Provided Care Provided: Adult Hospital Medicine"
--- NOTE | 2024-04-13 14:52 | Billing Data ---
Date of Service April 13, 2024 Coding Level of Care Code 39098 SUB INP/OBS CARE
--- NOTE | 2024-04-14 14:42 | Hospitalist Progress Note ---
"Date of Service April 14, 2024 Assessment & Plan (1) Altered mental state: (2) Intellectual disability: (3) Autism: (4) Constipation: Plan Altered Mental State | Agitation/Aggression -Patient with history of ASD, intellectual disability, tourette's and seizure disorder. At initial episode on 04/02/24 police were called to the patient's school due to aggressive behavior which lead to evaluation in ED. Per pt's parents, violent and combative which is unlike his normal behavior, and this is the worst he has been. Increasing combativeness in the past month. He received Haldol 10mg IV on admission and restraints were used for pt's safety. Minimally verbal at baseline but able to tell his parents what he needs. Pt has not required Haldol or restraints since 04/06/24. - Continue Risperidone 1.5 mg qam and 2mg qhs - Continue guanfacine 2mg BID and melatonin 3mg qhs. - Thorazine 12.5 mg PRN q6H if patient got agitated again. - Continue 1:1 sitter - Per case mgt on 04/11/24, pt is accepted at [facility] on 04/26/24. Seizure disorder Initial concern of possible absence seizures setting off current episode. 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 Following with Mary Freitas ([facility] [place] [facility] Received Keppra in the ER on 04/02/24 - Continue home meds of carbamazepine 400mg po BID, clobazam 10mg 1/2 tab po qhs - May consider weaning off clobazam per neurology evaluation Constipation -Miralax 34g BID with juice VTE Prophylaxis - low risk Diet - safe tray Code Status: Full Code Admission and Anticipated Discharge Date Admission Date: April 02, 2024 Supervising Physician Co-Signing Physician Notes Attending attestation Pt seen and examined in concert with Dr. Vergara. In agreement with the documented findings as noted in the resident documentation with any exceptions or additions as noted here. Resting in bed without acute complaint. On examination, S1/S2 nl RRR no MCG. CTAB. Abd NT/ND BS+ve Agitation in the setting of ASD - continue present regimen and monitor for response. Continue 1:1 for safety. Else see resident documentation as noted. Subjective Pt is a 18 yo male with PMH of ASD and intellectual disability, hx of seizures and tourette's syndrome with recent onset of combative behavior. This morning, patient was seen at bedside and appears calm. Patient has limited verbal skills and has difficulty expressing concerns, however was cooperative for exam. Physical Exam Physical Exam: General: patient resting comfortably, NAD, non-toxic in appearance, answers questions appropriately. Skin: warm, dry, intact HEENT: NC/AT, anicteric sclera, conjunctiva without injection, moist mucus membranes. Heart: +S1/S2, regular, no m/r/g Lungs: equal air entry bilaterally, no rales/rhonchi/wheezes Abd: +BS, soft, NT/ND, Ext: warm, no clubbing/cyanosis or edema, Alta's neg. Neuro: nonfocal, speech intact, no facial droop, moving all extremities. Results & Data Results & Data Vital Signs (Past 12 Hours) Vital Signs Temp Pulse Resp BP Pulse Ox O2 Del Method 04/14/24 08:58 36.5 C 88 18 108/74 99 Room Air Resident Activity Tracking Resident Involvement: Resident Care Provided Care Provided: Adult Hospital Medicine"
--- NOTE | 2024-04-15 07:51 | Hospitalist Progress Note ---
"Date of Service April 15, 2024 Assessment & Plan (1) Altered mental state: (2) Intellectual disability: (3) Autism: (4) Constipation: Plan Altered Mental State | Agitation/Aggression -Patient with history of ASD, intellectual disability, tourette's and seizure disorder. At initial episode on 04/02/24 police were called to the patient's school due to aggressive behavior which lead to evaluation in ED. Per pt's parents, violent and combative which is unlike his normal behavior, and this is the worst he has been. Increasing combativeness in the past month. He received Haldol 10mg IV on admission and restraints were used for pt's safety. Minimally verbal at baseline but able to tell his parents what he needs. Pt has not required Haldol or restraints since 04/06/24. - Continue Risperidone 1.5 mg qam and 2mg qhs - Continue guanfacine 2mg BID and melatonin 3mg qhs. - Thorazine 12.5 mg PRN q6H if patient got agitated again. - Continue 1:1 sitter - Per case mgt on 04/11/24, pt is accepted at [facility] on 04/26/24. Seizure disorder Initial concern of possible absence seizures setting off current episode. 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 Following with Mary Freitas ([facility] [place] [facility] Received Keppra in the ER on 04/02/24 - Continue home meds of carbamazepine 400mg po BID, clobazam 10mg 1/2 tab po qhs - May consider weaning off clobazam per neurology evaluation Constipation -Miralax 34g BID with juice VTE Prophylaxis - low risk Diet - safe tray Code Status: Full Code Admission and Anticipated Discharge Date Admission Date: April 02, 2024 Supervising Physician Co-Signing Physician Notes Attending attestation Pt seen and examined in concert with Dr. Vergara. In agreement with the documented findings as noted in the resident documentation with any exceptions or additions as noted here. Resting in bed without acute complaint. Declines examination today. Agitation in the setting of ASD - continue present regimen and monitor for response. Continue 1:1 for safety. Else see resident documentation as noted. Subjective Pt is a 18 yo male with PMH of ASD and intellectual disability, hx of seizures and tourette's syndrome with recent onset of combative behavior. This morning, patient was seen at bedside and appears calm. Patient has limited verbal skills and has difficulty expressing concerns, however was cooperative for exam. Physical Exam Physical Exam: General: patient resting comfortably, NAD, non-toxic in appearance, answers questions appropriately. Skin: warm, dry, intact HEENT: NC/AT, anicteric sclera, conjunctiva without injection, moist mucus membranes. Heart: +S1/S2, regular, no m/r/g Lungs: equal air entry bilaterally, no rales/rhonchi/wheezes Abd: +BS, soft, NT/ND, Ext: warm, no clubbing/cyanosis or edema Neuro: nonfocal, speech intact, no facial droop, moving all extremities. Results & Data Results & Data Vital Signs (Past 12 Hours) Vital Signs Temp Pulse Resp BP Pulse Ox O2 Del Method 04/14/24 20:16 36.9 C 84 16 133/82 98 Room Air Diagnostic Findings General: patient resting comfortably, NAD, non-toxic in appearance, answers questions appropriately. Skin: warm, dry, intact HEENT: NC/AT, anicteric sclera, conjunctiva without injection, moist mucus membranes. Heart: +S1/S2, regular, no m/r/g Lungs: equal air entry bilaterally, no rales/rhonchi/wheezes Abd: +BS, soft, NT/ND Ext: warm, no clubbing/cyanosis or edema Neuro: nonfocal, speech intact, no facial droop, moving all extremities."
--- NOTE | 2024-04-16 15:47 | Hospitalist Progress Note ---
"Date of Service April 16, 2024 Assessment & Plan (1) Altered mental state: (2) Intellectual disability: (3) Autism: (4) Constipation: Plan Altered Mental State | Agitation/Aggression -Patient with history of ASD, intellectual disability, tourette's and seizure disorder. At initial episode on 04/02/24 police were called to the patient's school due to aggressive behavior which lead to evaluation in ED. Per pt's parents, violent and combative which is unlike his normal behavior, and this is the worst he has been. Increasing combativeness in the past month. He received Haldol 10mg IV on admission and restraints were used for pt's safety. Minimally verbal at baseline but able to tell his parents what he needs. Pt has not required Haldol or restraints since 04/06/24. - Continue Risperidone 1.5 mg qam and 2mg qhs - Continue guanfacine 2mg BID and melatonin 3mg qhs. - Thorazine 12.5 mg PRN q6H if patient got agitated again. - Continue 1:1 sitter - Per case mgt on 04/11/24, pt is accepted at [facility] on 04/26/24. Seizure disorder Initial concern of possible absence seizures setting off current episode. 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 Following with Mary Freitas ([facility] [place] [facility]). Received Keppra in the ER on 04/02/24 - Continue home meds of carbamazepine 400mg po BID, clobazam 10mg 1/2 tab po qhs - May consider weaning off clobazam per neurology evaluation Constipation -Miralax 34g BID with juice VTE Prophylaxis - low risk Diet - safe tray Code Status: Full Code Admission and Anticipated Discharge Date Admission Date: April 02, 2024 Supervising Physician Co-Signing Physician Notes Attending attestation Pt seen and examined in concert with Dr. Vergara. In agreement with the documented findings as noted in the resident documentation with any exceptions or additions as noted here. Resting in bed without acute complaint. Declines examination today. Agitation in the setting of ASD - continue present regimen and monitor for response. Continue 1:1 for safety. Else see resident documentation as noted. Subjective Pt is a 18 yo male with PMH of ASD and intellectual disability, hx of seizures and tourette's syndrome with recent onset of combative behavior. This morning, patient was seen at bedside and appears calm. Patient has limited verbal skills and has difficulty expressing concerns, however was cooperative for exam. Physical Exam Physical Exam: General: patient resting comfortably, NAD, non-toxic in appearance, answers questions appropriately. Skin: warm, dry, intact HEENT: NC/AT, anicteric sclera, conjunctiva without injection, moist mucus membranes. Heart: +S1/S2, regular, no m/r/g Lungs: equal air entry bilaterally, no rales/rhonchi/wheezes Abd: +BS, soft, NT/ND, Ext: warm, no clubbing/cyanosis or edema Neuro: nonfocal, speech intact, no facial droop, moving all extremities. Resident Activity Tracking Resident Involvement: Resident Care Provided Care Provided: Adult [facility]"
--- NOTE | 2024-04-17 12:50 | Hospitalist Progress Note ---
"Date of Service April 17, 2024 Assessment & Plan (1) Altered mental state: (2) Intellectual disability: (3) Autism: (4) Constipation: Plan Altered Mental State | Agitation/Aggression -Patient with history of ASD, intellectual disability, tourette's and seizure disorder. At initial episode on 04/02/24 police were called to the patient's school due to aggressive behavior which lead to evaluation in ED. Per pt's parents, violent and combative which is unlike his normal behavior, and this is the worst he has been. Increasing combativeness in the past month. He received Haldol 10mg IV on admission and restraints were used for pt's safety. Minimally verbal at baseline but able to tell his parents what he needs. Pt has not required Haldol or restraints since 04/06/24. - Continue Risperidone 1.5 mg qam and 2mg qhs - Continue guanfacine 2mg BID and melatonin 3mg qhs. - Thorazine 12.5 mg PRN q6H if patient got agitated again. - Continue 1:1 sitter - Per case mgt on 04/11/24, pt is accepted at [facility] on 04/26/24. Seizure disorder Initial concern of possible absence seizures setting off current episode. 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 Following with Mary Freitas ([facility] [place] [facility]). Received Keppra in the ER on 04/02/24 - Continue home meds of carbamazepine 400mg po BID, clobazam 10mg 1/2 tab po qhs - May consider weaning off clobazam per neurology evaluation Constipation -Miralax 34g BID with juice VTE Prophylaxis - low risk Diet - safe tray Code Status: Full Code Admission and Anticipated Discharge Date Admission Date: April 02, 2024 Supervising Physician Co-Signing Physician Notes Attending attestation Pt seen and examined in concert with Dr. Vergara. In agreement with the documented findings as noted in the resident documentation with any exceptions or additions as noted here. Resting in bed without acute complaint. Declines examination today but appears well from gross examination. Agitation in the setting of ASD - continue present regimen and monitor for changes in behavior. Continue 1:1 for safety. Case management aware. Else see resident documentation as noted. Subjective Pt is a 18 yo male with PMH of ASD and intellectual disability, hx of seizures and tourette's syndrome with recent onset of combative behavior. This morning, patient was seen at bedside and appears calm. Patient has limited verbal skills and has difficulty expressing concerns, however was cooperative for exam. Physical Exam Physical Exam: General: patient resting comfortably, NAD, non-toxic in appearance, answers questions appropriately. Skin: warm, dry, intact HEENT: NC/AT, anicteric sclera, conjunctiva without injection, moist mucus membranes. Heart: +S1/S2, regular, no m/r/g Lungs: equal air entry bilaterally, no rales/rhonchi/wheezes Abd: +BS, soft, NT/ND, Ext: warm, no clubbing/cyanosis or edema Neuro: nonfocal, speech intact, no facial droop, moving all extremities. Results & Data Results & Data Vital Signs (Past 12 Hours) Vital Signs Temp Pulse Resp BP Pulse Ox O2 Del Method 04/17/24 08:27 36.7 C 90 18 111/64 98 Room Air"
--- NOTE | 2024-04-18 13:13 | Hospitalist Progress Note ---
"Date of Service April 18, 2024 Assessment & Plan (1) Altered mental state: (2) Intellectual disability: (3) Autism: (4) Constipation: Plan Altered Mental State | Agitation/Aggression -Patient with history of ASD, intellectual disability, tourette's and seizure disorder. At initial episode on 04/02/24 police were called to the patient's school due to aggressive behavior which lead to evaluation in ED. Per pt's parents, violent and combative which is unlike his normal behavior, and this is the worst he has been. Increasing combativeness in the past month. He received Haldol 10mg IV on admission and restraints were used for pt's safety. Minimally verbal at baseline but able to tell his parents what he needs. Pt has not required Haldol or restraints since 04/06/24. - Continue Risperidone 1.5 mg qam and 2mg qhs - Continue guanfacine 2mg BID and melatonin 3mg qhs. - Thorazine 12.5 mg PRN q6H if patient got agitated again. - Continue 1:1 sitter - Per case mgt on 04/11/24, pt is accepted at [facility] on 04/26/24. Seizure disorder Initial concern of possible absence seizures setting off current episode. 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 Following with Mary Freitas ([place] [facility]). Received Keppra in the ER on 04/02/24 - Continue home meds of carbamazepine 400mg po BID, clobazam 10mg 1/2 tab po qhs - May consider weaning off clobazam per neurology evaluation Constipation -Miralax 34g BID with juice VTE Prophylaxis - low risk Diet - safe tray Code Status: Full Code Admission and Anticipated Discharge Date Admission Date: April 02, 2024 Supervising Physician Co-Signing Physician Notes I also saw the patient and confirmed blackwell portions of the clinical history physical examination. I agree with the impression and plan as noted with the resident documentation. Upon my mid morning exam, the patient was sitting in his room playing (organizing) some picture type cards on the bed table. Attempted to engage conversation, although nonverbal with me today. This is not completely surprising as it was my first time meeting the patient. He was more conversational with the resident physician earlier today who has seen him for consecutive days. Per the staff member on the 1:1, patient has been calm and cooperative throughout the day thus far. Impression and Plan Agitation in the setting of ASD Placement tentatively scheduled for 05/17 at [facility] Continue current regimen Additional per resident documentation. Subjective Pt is a 18 yo male with PMH of ASD and intellectual disability, hx of seizures and tourette's syndrome with recent onset of combative behavior. This morning, patient was seen at bedside and appears calm. Patient has limited verbal skills and has difficulty expressing concerns, however was cooperative for exam. Physical Exam Physical Exam: General: patient resting comfortably, NAD, non-toxic in appearance, answers questions appropriately. Skin: warm, dry, intact HEENT: NC/AT, anicteric sclera, conjunctiva without injection, moist mucus membranes. Heart: +S1/S2, regular, no m/r/g Lungs: equal air entry bilaterally, no rales/rhonchi/wheezes Abd: +BS, soft, NT/ND Ext: warm, no clubbing/cyanosis or edema Neuro: nonfocal, speech intact, no facial droop, moving all extremities. Results & Data Results & Data Vital Signs (Past 12 Hours) Vital Signs Temp Pulse Resp BP Pulse Ox O2 Del Method 04/18/24 09:12 36.7 C 71 15 118/78 99 Room Air Resident Activity Tracking Resident Involvement: Resident Care Provided Care Provided: Adult Hospital Medicine"
--- NOTE | 2024-04-19 10:42 | Hospitalist Progress Note ---
"Date of Service April 19, 2024 Assessment & Plan (1) Altered mental state: (2) Intellectual disability: (3) Autism: (4) Constipation: Plan Altered Mental State | Agitation/Aggression -Patient with history of ASD, intellectual disability, tourette's and seizure disorder. At initial episode on 04/02/24 police were called to the patient's school due to aggressive behavior which lead to evaluation in ED. Per pt's parents, violent and combative which is unlike his normal behavior, and this is the worst he has been. Increasing combativeness in the past month. He received Haldol 10mg IV on admission and restraints were used for pt's safety. Minimally verbal at baseline but able to tell his parents what he needs. Pt has not required Haldol or restraints since 04/06/24. - Continue Risperidone 1.5 mg qam and 2mg qhs - Continue guanfacine 2mg BID and melatonin 3mg qhs. - Thorazine 12.5 mg PRN q6H if patient got agitated again. - Continue 1:1 sitter - Per case mgt on 04/11/24, pt is accepted at [facility] on 04/26/24. Seizure disorder Initial concern of possible absence seizures setting off current episode. 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 Following with Mary Freitas ([facility] [place]). Received Keppra in the ER on 04/02/24 - Continue home meds of carbamazepine 400mg po BID, clobazam 10mg 1/2 tab po qhs - May consider weaning off clobazam per neurology evaluation Constipation -Miralax 34g BID with juice VTE Prophylaxis - low risk Diet - safe tray Code Status: Full Code Admission and Anticipated Discharge Date Admission Date: April 02, 2024 Supervising Physician Co-Signing Physician Notes I also saw the patient and confirmed blackwell portions of the clinical history physical examination. I agree with the impression and plan as noted with the resident documentation. Per the staff member on the 1:1, patient has been active in the room for most of the morning, although has just laid down to sleep prior to my visit. Overall, has remained calmed and cooperative throughout the d ay thus far. Impression and Plan Agitation in the setting of ASD Placement tentatively scheduled for [facility] next week Continue current medication regimen Remains 1:1 Additional per resident documentation. Subjective Pt is a 18 yo male with PMH of ASD and intellectual disability, hx of seizures and tourette's syndrome with recent onset of combative behavior. This morning, patient was seen at bedside and appears calm. Patient has limited verbal skills and has difficulty expressing concerns, however was cooperative for exam. Physical Exam Physical Exam: General: patient resting comfortably, NAD, non-toxic in appearance, answers questions appropriately. Skin: warm, dry, intact HEENT: NC/AT, anicteric sclera, conjunctiva without injection, moist mucus membranes. Heart: +S1/S2, regular, no m/r/g Lungs: equal air entry bilaterally, no rales/rhonchi/wheezes Abd: +BS, soft, NT/ND Ext: warm, no clubbing/cyanosis or edema Neuro: nonfocal, speech intact, no facial droop, moving all extremities. Results & Data Results & Data Vital Signs (Past 12 Hours) Vital Signs Temp Pulse Resp BP Pulse Ox O2 Del Method 04/19/24 08:16 36.4 C L 83 16 119/74 98 Room Air Resident Activity Tracking Resident Involvement: Resident Care Provided Care Provided: Adult Hospital Medicine"
--- NOTE | 2024-04-20 10:09 | Hospitalist Progress Note ---
"Date of Service April 20, 2024 Assessment & Plan (1) Altered mental state: (2) Intellectual disability: (3) Autism: (4) Constipation: Plan Altered Mental State | Agitation/Aggression -Patient with history of ASD, intellectual disability, tourette's and seizure disorder. At initial episode on 04/02/24 police were called to the patient's school due to aggressive behavior which lead to evaluation in ED. Per pt's parents, violent and combative which is unlike his normal behavior, and this is the worst he has been. Increasing combativeness in the past month. He received Haldol 10mg IV on admission and restraints were used for pt's safety. Minimally verbal at baseline but able to tell his parents what he needs. Pt has not required Haldol or restraints since 04/06/24. - Continue Risperidone 1.5 mg qam and 2mg qhs - Continue guanfacine 2mg BID and melatonin 3mg qhs. - Thorazine 12.5 mg PRN q6H if patient got agitated again. - Continue 1:1 sitter - Per case mgt on 04/11/24, pt is accepted at [facility] on 04/26/24. Seizure disorder Initial concern of possible absence seizures setting off current episode. 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 Following with Mary Freitas ([facility] Received Keppra in the ER on 04/02/24 - Continue home meds of carbamazepine 400mg po BID, clobazam 10mg 1/2 tab po qhs - May consider weaning off clobazam per neurology evaluation Constipation -Miralax 34g BID with juice VTE Prophylaxis - low risk Diet - safe tray Code Status: Full Code Admission and Anticipated Discharge Date Admission Date: April 02, 2024 Supervising Physician Co-Signing Physician Notes I also saw the patient and confirmed blackwell portions of the clinical history physical examination. I agree with the impression and plan as noted with the resident documentation. He is minimally (but more than previously) interactive/communicative with the team today - suspect he is more comfortable now that this is the third day that I am seeing him. Per 1:1, has been filling gloves with water this morning. Impression and Plan Agitation in the setting of ASD Placement tentatively scheduled for [facility] next week Continue current medication regimen Remains 1:1 Additional per resident documentation. Subjective Pt is a 18 yo male with PMH of ASD and intellectual disability, hx of seizures and tourette's syndrome with recent onset of combative behavior. This morning, patient was seen at bedside and appears calm. Patient has limited verbal skills and has difficulty expressing concerns, however was cooperative for exam. Physical Exam Physical Exam: General: patient resting comfortably, NAD, non-toxic in appearance, answers questions appropriately. Skin: warm, dry, intact HEENT: NC/AT, anicteric sclera, conjunctiva without injection, moist mucus membranes. Heart: +S1/S2, regular, no m/r/g Lungs: equal air entry bilaterally, no rales/rhonchi/wheezes Abd: +BS, soft, NT/ND Ext: warm, no clubbing/cyanosis or edema Neuro: nonfocal, speech intact, no facial droop, moving all extremities. Results & Data Results & Data Vital Signs (Past 12 Hours) Vital Signs Temp Pulse Resp BP Pulse Ox O2 Del Method 04/20/24 09:19 36.9 C 76 16 123/69 98 Room Air Resident Activity Tracking Resident Involvement: Resident Care Provided Care Provided: Adult Hospital Medicine"
--- NOTE | 2024-04-21 12:34 | Hospitalist Progress Note ---
"Date of Service April 21, 2024 Assessment & Plan (1) Altered mental state: (2) Intellectual disability: (3) Autism: (4) Constipation: Plan Altered Mental State | Agitation/Aggression -Patient with history of ASD, intellectual disability, tourette's and seizure disorder. At initial episode on 04/02/24 police were called to the patient's school due to aggressive behavior which lead to evaluation in ED. Per pt's parents, violent and combative which is unlike his normal behavior, and this is the worst he has been. Increasing combativeness in the past month. He received Haldol 10mg IV on admission and restraints were used for pt's safety. Minimally verbal at baseline but able to tell his parents what he needs. Pt has not required Haldol or restraints since 04/06/24. - Continue Risperidone 1.5 mg qam and 2mg qhs - Continue guanfacine 2mg BID and melatonin 3mg qhs. - Thorazine 12.5 mg PRN q6H if patient got agitated again. - Continue 1:1 sitter - Per case mgt on 04/11/24, pt is accepted at [facility] on 04/26/24. Seizure disorder Initial concern of possible absence seizures setting off current episode. 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 Following with Mary Freitas ([facility] [place] [facility]). Received Keppra in the ER on 04/02/24 - Continue home meds of carbamazepine 400mg po BID, clobazam 10mg 1/2 tab po qhs - May consider weaning off clobazam per neurology evaluation Constipation -Miralax 34g BID with juice VTE Prophylaxis - low risk Diet - safe tray Code Status: Full Code Admission and Anticipated Discharge Date Admission Date: April 02, 2024 Supervising Physician Co-Signing Physician Notes I personally examined the patient and verified all blackwell points of history and exam, discussed case, and agree with decision making with Dr Vergara no new issues. Playing on his iPad. Vitals noted, in general he is awake and alert pleasant no distress. HEENT normocephalic atraumatic mucous membranes moist. Breathing unlabored no accessory muscle use good effort. Skin without rashes pallor or icterus. Impression and Plan Agitation in the setting of ASD Placement tentatively scheduled for [facility] next week Continue current medication regimen Has not needed as needed medications for agitation Additional per resident documentation. Subjective Pt is a 18 yo male with PMH of ASD and intellectual disability, hx of seizures and tourette's syndrome with recent onset of combative behavior. This morning, patient was seen at bedside and appears calm. Patient has limited verbal skills and has difficulty expressing concerns, however was cooperative for exam. Physical Exam Physical Exam: General: patient resting comfortably, NAD, non-toxic in appearance, answers questions appropriately. Skin: warm, dry, intact HEENT: NC/AT, anicteric sclera, conjunctiva without injection, moist mucus membranes. Heart: +S1/S2, regular, no m/r/g Lungs: equal air entry bilaterally, no rales/rhonchi/wheezes Abd: +BS, soft, NT/ND Ext: warm, no clubbing/cyanosis or edema Neuro: nonfocal, speech intact, no facial droop, moving all extremities. Resident Activity Tracking Resident Involvement: Resident Care Provided Care Provided: Adult Hospital Medicine"
--- NOTE | 2024-04-21 17:55 | Billing Data ---
Date of Service April 21, 2024 Coding Level of Care Code 36431 SUB INP/OBS CARE
--- NOTE | 2024-04-22 12:50 | Hospitalist Progress Note ---
"Date of Service April 22, 2024 Assessment & Plan (1) Altered mental state: (2) Intellectual disability: (3) Autism: (4) Constipation: Plan Altered Mental State | Agitation/Aggression -Patient with history of ASD, intellectual disability, tourette's and seizure disorder. At initial episode on 04/02/24 police were called to the patient's school due to aggressive behavior which lead to evaluation in ED. Per pt's parents, violent and combative which is unlike his normal behavior, and this is the worst he has been. Increasing combativeness in the past month. He received Haldol 10mg IV on admission and restraints were used for pt's safety. Minimally verbal at baseline but able to tell his parents what he needs. Pt has not required Haldol or restraints since 04/06/24. - Continue Risperidone 1.5 mg qam and 2mg qhs - Continue guanfacine 2mg BID and melatonin 3mg qhs. - Thorazine 12.5 mg PRN q6H if patient got agitated again. - Continue 1:1 sitter - Per case mgt on 04/11/24, pt is accepted at [facility] on 04/27/24. Seizure disorder Initial concern of possible absence seizures setting off current episode. 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 Following with Mary Freitas ([facility] [place] [facility]). Received Keppra in the ER on 04/02/24 - Continue home meds of carbamazepine 400mg po BID, clobazam 10mg 1/2 tab po qhs - May consider weaning off clobazam per neurology evaluation Constipation -Miralax 34g BID with juice VTE Prophylaxis - low risk Diet - safe tray Code Status: Full Code Admission and Anticipated Discharge Date Admission Date: April 02, 2024 Supervising Physician Co-Signing Physician Notes I personally examined the patient and verified all blackwell points of history and exam, discussed case, and agree with decision making with Dr Vergara family present. no new problems. Vitals noted, in general he is awake and alert pleasant no distress. HEENT normocephalic atraumatic mucous membranes moist. Breathing unlabored no accessory muscle use good effort. Skin without rashes pallor or icterus. Impression and Plan Agitation in the setting of ASD Placement tentatively scheduled for [facility] next week Continue current medication regimen He has not needed as needed medications for agitation Additional per resident documentation. Subjective Pt is a 18 yo male with PMH of ASD and intellectual disability, hx of seizures and tourette's syndrome with recent onset of combative behavior. This morning, patient was seen at bedside and appears calm. Patient has limited verbal skills and has difficulty expressing concerns, however was cooperative for exam. Today patient's father and sister were seen along with patient at bedside. Family explains that patient is cooperative with them and mood has been stable. Family confirms patient's placement to [facility] 04/27. Physical Exam Physical Exam: General: patient resting comfortably, NAD, non-toxic in appearance, answers questions appropriately. Skin: warm, dry, intact HEENT: NC/AT, anicteric sclera, conjunctiva without injection, moist mucus membranes. Heart: +S1/S2, regular, no m/r/g Lungs: equal air entry bilaterally, no rales/rhonchi/wheezes Abd: +BS, soft, NT/ND Ext: warm, no clubbing/cyanosis or edema Neuro: nonfocal, speech intact, no facial droop, moving all extremities. Results & Data Results & Data Vital Signs (Past 12 Hours) Vital Signs Temp Pulse Resp BP Pulse Ox O2 Del Method 04/22/24 08:31 36.4 C L 70 18 125/76 97 Room Air Resident Activity Tracking Resident Involvement: Resident Care Provided Care Provided: Adult Hospital Medicine"
--- NOTE | 2024-04-22 14:11 | Billing Data ---
Date of Service April 22, 2024 Coding Level of Care Code 63216 SUB INP/OBS CARE
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
--- NOTE | 2024-04-23 19:04 | Billing Data ---
Date of Service April 23, 2024 Coding Level of Care Code 14764 SUB INP/OBS CARE
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
--- NOTE | 2024-04-24 18:10 | Billing Data ---
Date of Service April 24, 2024 Coding Level of Care Code 87534 SUB INP/OBS CARE
[2024-04-25 11:52] LABS: Quantiferon Mitogen-NIL 6.95 IU/mL; Quantiferon NIL 0.03 IU/mL; Quantiferon TB Gold Plus NEGATIVE (NEGATIVE); Quantiferon TB1-NIL <0.00 IU/mL
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
--- NOTE | 2024-04-25 18:10 | Billing Data ---
Date of Service April 25, 2024 Coding Level of Care Code 34479 SUB INP/OBS CARE
[2024-04-25 19:35] VITALS: RESP 16; O2SAT 97
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
--- NOTE | 2024-04-26 12:35 | Billing Data ---
Date of Service April 26, 2024 Coding Level of Care Code 64094 SUB INP/OBS CARE
[2024-04-26 20:03] VITALS: TEMP 97.7
[2024-04-27 09:11] VITALS: BP 104/67; PULSE 79
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
== END 2024-04-27 11:11 | DRG 884 ==
LOC: ED 12:11 → 2S 16:25 → SUATTDRO 16:25 → 2S 17:21 → 3N 04-10 22:28

== ENCOUNTER 2024-04-27 18:37 | Inpatient (IN) ==
[2024-04-27] MEDS: OLANZapine 10 MG/2.1 ML SDV IM STA (19:02)
[2024-04-27] MEDS ORDERED: OLANZapine 10 MG/2.1 ML SDV IM PRN (19:53)
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
[2024-04-27 20:31] LABS: Appearance Urine Clear (Clear); Bacteria Urine Automated None Seen (None Seen); Bilirubin Urine Negative (Negative); Blood Urine Negative (Negative); Cast Urine Automated 0-2 /lpf (0-2); Color Urine Yellow; Epithelial Cell Urine Auto 0-2 /hpf (0-2); Glucose Urine UA Negative (Negative); Ketones Urine Negative (Negative); Leukocyte Esterase Urine Negative (Negative); Nitrite Urine Negative (Negative); Protein Urine Trace (Negative); RBC Urine Automated 0-2 /hpf (0-2); Specific Gravity Urine 1.007 (1.000-1.030); Urobilinogen Urine Negative (Negative); WBC Urine Automated 0-5 /hpf (0-5)
[2024-04-27 20:39] LABS: Basophils # (auto) 0.02 K/uL (0.00-0.20); Basophils % (auto) 0.1 %; Eosinophils # (auto) 0.01 K/uL (0.00-0.50); Eosinophils % (auto) 0.1 %; Hematocrit (blood only) 38.9 % (42.0-52.0); Hemoglobin 13.2 g/dl (14.0-18.0); Immature Granulocytes # (auto) 0.05 K/uL (0.01-0.20); Immature Granulocytes % (auto) 0.3 %; Lymphocytes # (auto) 1.54 K/uL (1.20-3.40); Lymphocytes % (auto) 10.5 %; Mean Corpuscular Hemoglobin 29.4 pg (25.0-34.0); Mean Corpuscular Hgb Conc 33.9 g/dL (32.0-36.0); Mean Corpuscular Volume 86.6 fL (80.0-100.0); Mean Platelet Volume 9.2 fL (9.4-12.4); Monocytes # (auto) 1.02 K/uL (0.11-0.59); Neutrophils # (auto) 11.96 K/uL (1.40-6.50); Platelet Count 315 K/uL (130-400); RDW Coefficient of Variation 12.6 % (11.5-14.5); Red Blood Count 4.49 M/uL (4.70-6.10)
[2024-04-27 20:49] LABS: Albumin Globulin Ratio 1.4 (0.9-2); Albumin Level 4.3 gm/dl (3.4-5.0); BUN Creatinine Ratio 6.7 (10-20); Bilirubin,Total 0.4 mg/dl (0.2-1.0); Calcium 9.1 mg/dl (8.6-10.3); Creatinine Clr Calc Pharmacy 123.8 ml/min; Potassium 3.7 mmol/L (3.5-5.1); Total Protein 7.3 gm/dl (6.0-8.3)
[2024-04-27 21:00] LABS: Acetaminophen < 3 ug/ml (10-30); Salicylate < 3.0 mg/dl (3.0-30)
[2024-04-27 21:04] LABS: Thyroid Stimulating Hormone 0.61 uIu/ml (0.300-4.500)
[2024-04-27 21:15] LABS: Amphetamines+Metham, Urine Neg (Neg); Barbiturates, Urine Neg (Neg); Benzodiazepine, Urine Neg (Neg); Cocaine, Urine Neg (Neg); Fentanyl, Urine Neg (Neg); MDMA (Ecstacy), Urine Neg (Neg); Marijuana, Urine Neg (Neg); Methadone, Urine Neg (Neg); Opiate, Urine Neg (Neg); Phencyclidine, Urine Neg (Neg)
[2024-04-27] MEDS: risperiDONE 2 MG TABLET PO SCH (22:22)
[2024-04-27] MEDS: CLOBAZAM 10 MG PO SCH (22:22)
[2024-04-27] MEDS: MELATONIN 3 MG TAB PO SCH (22:22)
[2024-04-27] MEDS: carBAMazepine 100 MG CHEW TAB PO SCH (22:22)
[2024-04-27] MEDS: guanFACINE HCL 1 MG TAB PO SCH (22:23)
[2024-04-27] MEDS: NON-FORMULARY MEDICATION (Guanfacine 2 mg tablet) PO SCH (22:23)
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
[2024-04-28] MEDS: risperiDONE 0.5 MG TABLET PO SCH (09:19)
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
[2024-04-28] MEDS ORDERED: MELATONIN 3 MG TAB PO PRN (14:40)
[2024-04-28] MEDS ORDERED: POLYETHYLENE (MIRALAX) 17 GM PACK PO PRN (14:40)
[2024-04-28] MEDS ORDERED: ONDANSETRON INJ 2 MG/ML 2 ML VIAL IV PRN (14:40)
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
[2024-04-28] MEDS ORDERED: OR MISCELLANEOUS MED XX ONE (17:53)
[2024-04-28] MEDS: POLYETHYLENE (MIRALAX) 17 GM PACK PO SCH (20:14)
[2024-04-28] MEDS: MELATONIN 3 MG TAB PO SCH (20:33)
[2024-04-28] MEDS: risperiDONE 2 MG TABLET PO SCH (20:33)
[2024-04-29] MEDS: OLANZapine 10 MG/2.1 ML SDV IM PRN (09:39)
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
--- NOTE | 2024-04-30 09:08 | Hospitalist Progress Note ---
Date of Service April 30, 2024 Assessment & Plan (1) Agitation: Plan: Pt is a 18 yo male with PMH of autism spectrum disorder, PTSD, IDD, and seizure disorder presenting to the hospital d/t aggressive behavior at his new living facility. He was discharged from [facility] yesterday to [facility]. Pt previously living with foster parents who are no longer able to care for him at their home. Agitation/combative behavior in the setting of autism spectrum disorder/IDD - unclear trigger of most recent outburst/change in behavior (?related to environment change to new living facility) - increase risperdal to 2mg BID; continue melatonin 3 mg HS and guanfacine 2 mg BID - per psych- for behavioral emergency: - 1st line zyprexa 2.5mg PO or (5mg IM if necessary) (24 hr max of 20 mg- if IM given, obtain EKG) - 2nd line thorazine 12.5mg PO or (25mg IM if necessary) (24 hr max of 50mg) Seizure disorder - continue home meds; carbamazepine 400mg BID, clobazam 5mg HS DVT ppx: ambulation Code: full Dispo: admit to med/surg; pending placement to [facility] treatment facility (psych and CM involved) (2) Seizure disorder: (3) Combative behavior: (4) Intellectual disability: Admission and Anticipated Discharge Date Admission Date: April 28, 2024 Supervising Physician Co-Signing Physician Notes Attending Physician Supervision Note: I examined the patient and verified the blackwell history and physical, reviewed labs and image studies and agree with findings and care plan noted above. Subjective Patient found resting comfortable. No agitated. Good respiratory effort. No concern from nursing. No events over nights Review of Systems Review of Systems: as per HPI Physical Exam Physical Exam: Constitutional: well appearing, moderate distress HEENT: normocephalic CV: clinically well perfused Respiratory: no increased work of breathing MSK: no gross deformities noted; pt able to ambulate w/o difficulty Neuro: alert Psych: Pt moderated agitated but able to be redirected and calmed. Resident Activity Tracking Resident Involvement: Resident Care Provided Care Provided: Adult Hospital Medicine
--- NOTE | 2024-05-01 10:21 | Hospitalist Progress Note ---
Date of Service May 01, 2024 Assessment & Plan (1) Agitation: Plan: Pt is a 18 yo male with PMH of autism spectrum disorder, PTSD, IDD, and seizure disorder presenting to the hospital d/t aggressive behavior at his new living facility. He was discharged from [facility] yesterday to [facility]. Pt previously living with foster parents who are no longer able to care for him at their home. Agitation/combative behavior in the setting of autism spectrum disorder/IDD - unclear trigger of most recent outburst/change in behavior (?related to environment change to new living facility) - increase risperdal to 2mg BID; continue melatonin 3 mg HS and guanfacine 2 mg BID - per psych- for behavioral emergency: - 1st line zyprexa 2.5mg PO or (5mg IM if necessary) (24 hr max of 20 mg- if IM given, obtain EKG) - 2nd line thorazine 12.5mg PO or (25mg IM if necessary) (24 hr max of 50mg) Seizure disorder - continue home meds; carbamazepine 400mg BID, clobazam 5mg HS DVT ppx: ambulation Code: full Dispo: admit to med/surg; pending placement to [facility] (psych and CM involved) (2) Seizure disorder: (3) Combative behavior: (4) Intellectual disability: Admission and Anticipated Discharge Date Admission Date: April 28, 2024 Supervising Physician Co-Signing Physician Notes Attending Physician Supervision Note: I examined the patient and verified the blackwell history and physical, reviewed labs and image studies and agree with findings and care plan noted above. Able to be directed. No agitation. Awaiting placement Subjective Patient found resting comfortable. No agitated. Good respiratory effort. No con cern from nursing. No events over nights Physical Exam Physical Exam: Constitutional: well appearing, moderate distress HEENT: normocephalic CV: clinically well perfused Respiratory: no increased work of breathing MSK: no gross deformities noted; pt able to ambulate w/o difficulty Neuro: alert Psych: Pt moderated agitated but able to be redirected and calmed. Results & Data Results & Data Vital Signs (Past 12 Hours) Vital Signs Pulse Resp BP Pulse Ox O2 Del Method 05/01/24 09:46 60 16 98/52 L 99 Room Air Resident Activity Tracking Resident Involvement: Resident Care Provided Care Provided: Adult [facility] Medicine
--- NOTE | 2024-05-02 10:10 | Hospitalist Progress Note ---
Date of Service May 02, 2024 Assessment & Plan (1) Agitation: Plan: Pt is a 18 yo male with PMH of autism spectrum disorder, PTSD, IDD, and seizure disorder presenting to the hospital d/t aggressive behavior at his new living facility. He was discharged from [facility] yesterday to [facility]. Pt previously living with foster parents who are no longer able to care for him at their home. Agitation/combative behavior in the setting of autism spectrum disorder/IDD - unclear trigger of most recent outburst/change in behavior (?related to environment change to new living facility) - Continue Risperdal to 2mg BID; continue melatonin 3 mg HS and guanfacine 2 mg BID - per psych- for behavioral emergency: - 1st line zyprexa 2.5mg PO or (5mg IM if necessary) (24 hr max of 20 mg- if IM given, obtain EKG) - 2nd line thorazine 12.5mg PO or (25mg IM if necessary) (24 hr max of 50mg) - Meeting today to developed plan for placement. Seizure disorder - continue home meds; carbamazepine 400mg BID, clobazam 5mg HS -Neurology consulted on previous admission: Upon evaluation, neurology has lower suspicion for current seizure activity and recommending psych evaluation - DVT ppx: ambulation Code: full Dispo: admit to med/surg; pending placement to shelter residential treatment facility (psych and CM involved) (2) Seizure disorder: (3) Combative behavior: (4) Intellectual disability: Admission and Anticipated Discharge Date Admission Date: April 28, 2024 Supervising Physician Co-Signing Physician Notes I personally examined the patient and verified blackwell points of history and exam, discussed case, and agree with decision making and plan documented by Dr. Jose Jones. Patient denies pain or needs at present. Was pacing room but calm overall. Awaiting placement. Subjective Seen this morning. Awake, pacing in room. Not agitated. When ask about pain he said none. Refers wanted to drink "purple juice". Easy to redirect. No aggressive behavior since admission. No need for chemical sedation Review of Systems Review of Systems: as per HPI Physical Exam Physical Exam: Constitutional: well appearing, moderate distress HEENT: normocephalic CV: clinically well perfused Respiratory: no increased work of breathing MSK: no gross deformities noted; pt able to ambulate w/o difficulty Neuro: alert Psych: Not agitated, easy to redirected and calmed. Results & Data Results & Data Vital Signs (Past 12 Hours) Vital Signs Pulse Resp BP Pulse Ox O2 Del Method 05/02/24 08:55 71 16 114/73 95 Room Air 05/01/24 23:25 Room Air Resident Activity Tracking Resident Involvement: Resident Care Provided Care Provided: Adult Hospital Medicine
[2024-05-02] MEDS: CLOBAZAM 5 MG PO SCH (21:00)
[2024-05-03] MEDS: ACETAMINOPHEN 325 MG TAB PO PRN (11:51)
--- NOTE | 2024-05-03 15:42 | Hospitalist Progress Note ---
Date of Service May 03, 2024 Assessment & Plan (1) Agitation: Plan: Pt is a 18 yo male with PMH of autism spectrum disorder, PTSD, IDD, and seizure disorder presenting to the hospital d/t aggressive behavior at his new living facility. He was discharged from [facility] to [facility]. Pt previously living with foster parents who are no longer able to care for him at their home. Agitation/combative behavior in the setting of autism spectrum disorder/IDD - unclear trigger of most recent outburst/change in behavior (?related to environment change to new living facility) - Continue Risperdal to 2mg BID; continue melatonin 3 mg HS and guanfacine 2 mg BID - per psych- for behavioral emergency: - 1st line zyprexa 2.5mg PO or (5mg IM if necessary) (24 hr max of 20 mg- if IM given, obtain EKG) - 2nd line thorazine 12.5mg PO or (25mg IM if necessary) (24 hr max of 50mg) - Now on medical floor Seizure disorder - continue home meds; carbamazepine 400mg BID, clobazam 5mg HS - no indication of current seizure activity DVT ppx: ambulation Code: full Dispo: admit to med/surg; pending placement to [facility] (psych and CM involved) (2) Seizure disorder: (3) Combative behavior: (4) Intellectual disability: Admission and Anticipated Discharge Date Admission Date: April 28, 2024 Supervising Physician Co-Signing Physician Notes I personally examined the patient and verified blackwell points of history and exam, discussed case, and agree with decision making and plan documented by Dr. Graves. Patient calm and cooperative in room with 1:1 and responds well to redirection. Updated family; they are hopeful the team will discuss consideration of increase of risperidone with psychiatry. They also provided additional background information that Tavon's birthmother was diagnosed with "severe form of schizophrenia" and perhaps contributing to his current outbursts. Advised parents medical team will discuss with psychiatry. Currently awaiting placement with multidisciplinary team. Subjective Patient seen and evaluated at bedside this morning. No acute events overnight. Initially seen in ED, patient sleeping comfortably. Again seen on the floor. No agitation. Laying in the bed, cooperative. 1:1 present. Does not report pain or any needs. Review of Systems Review of Systems: reviewed, per HPI Physical Exam Physical Exam: Constitutional: well-appearing, no acute distress HEENT: NCAT, no conjunctival injection CV: clinically well perfused Resp: no increased work of breathing GI: nondistended MSK: no gross deformities appreciated Skin: warm, dry, no rash appreciated Neuro: alert, responds with one word answers to direct questions Results & Data Results & Data Vital Signs (Past 12 Hours) Vital Signs Temp Pulse Resp BP Pulse Ox O2 Del Method 05/03/24 09:54 36.5 C 66 18 118/64 99 Room Air 05/03/24 09:36 37.2 C 16 93/61 L 99 Room Air
--- NOTE | 2024-05-04 16:43 | Hospitalist Progress Note ---
Date of Service May 04, 2024 Assessment & Plan (1) Agitation: (2) Seizure disorder: (3) Combative behavior: (4) Intellectual disability: Plan Pt is a 18 yo male with PMH of autism spectrum disorder, PTSD, IDD, and seizure disorder presenting to the hospital d/t aggressive behavior at his new living facility. He was discharged from [facility] to [facility]. Pt previously living with foster parents who are no longer able to care for him at their home. Agitation/combative behavior in the setting of autism spectrum disorder/IDD - unclear trigger of most recent outburst/change in behavior (?related to environment change to new living facility) - Continue Risperdal to 2mg BID; continue melatonin 3 mg HS and guanfacine 2 mg BID - Re-engage with psychiatry re: Risperdal titration, role for further increasing dose? - per psych- for behavioral emergency: - 1st line zyprexa 2.5mg PO or (5mg IM if necessary) (24 hr max of 20 mg- if IM given, obtain EKG) - 2nd line thorazine 12.5mg PO or (25mg IM if necessary) (24 hr max of 50mg) - Now on medical floor Seizure disorder - continue home meds; carbamazepine 400mg BID, clobazam 5mg HS - no indication of current seizure activity DVT ppx: ambulation Code: full Dispo: admit to med/surg; pending [facility] to [facility] (psych and CM involved) Admission and Anticipated Discharge Date Admission Date: April 28, 2024 Supervising Physician Co-Signing Physician Notes I personally examined the patient and verified blackwell points of history and exam, discussed case, and agree with decision making and plan documented by Dr. Graves. Subjective Patient seen and evaluated at bedside this morning. No acute events overnight. Patient moved to room on the floor. Working with a 1:1 that he knows. Very re- directable, no concerns from 1:1. Pt denies pain or needs. Review of Systems Review of Systems: reviewed, per HPI Physical Exam Physical Exam: Constitutional: well-appearing, no acute distress HEENT: NCAT, no conjunctival injection CV: clinically well perfused Resp: no increased work of breathing GI: nondistended MSK: no gross deformities appreciated Skin: warm, dry, no rash appreciated Neuro: alert, responds with one word answers to direct questions Results & Data Results & Data Vital Signs (Past 12 Hours) Vital Signs Temp Pulse Resp BP Pulse Ox O2 Del Method 05/04/24 08:31 36.6 C 50 L 16 100/61 99 Room Air Resident Activity Tracking Resident Involvement: Resident Care Provided Care Provided: Adult Hospital Medicine
--- NOTE | 2024-05-05 07:38 | Hospitalist Progress Note ---
Date of Service May 05, 2024 Assessment & Plan (1) Agitation: (2) Seizure disorder: (3) Combative behavior: (4) Intellectual disability: Plan Pt is a 18 yo male with PMH of autism spectrum disorder, PTSD, IDD, and seizure disorder presenting to the hospital d/t aggressive behavior at his new living facility. He was discharged from [facility] to [facility]. Pt previously living with foster parents who are no longer able to care for him at their home. Agitation/combative behavior in the setting of autism spectrum disorder/IDD - unclear trigger of most recent outburst/change in behavior (?related to environment change to new living facility) - Continue Risperdal to 2mg BID; continue melatonin 3 mg HS and guanfacine 2 mg BID - Re-engage with psychiatry re: Risperdal titration, role for further increasing dose? - per psych- for behavioral emergency: - 1st line zyprexa 2.5mg PO or (5mg IM if necessary) (24 hr max of 20 mg- if IM given, obtain EKG) - 2nd line thorazine 12.5mg PO or (25mg IM if necessary) (24 hr max of 50mg) - Continue 1:1 Seizure disorder - continue home meds; carbamazepine 400mg BID, clobazam 5mg HS - no indication of current seizure activity DVT ppx: ambulation Code: full Dispo: Med/surg; pending placement to [facility] facility (psych and CM involved) Admission and Anticipated Discharge Date Admission Date: April 28, 2024 Supervising Physician Co-Signing Physician Notes I personally examined the patient and verified all blackwell points of history and exam, discussed case, and agree with decision making with Dr Vergara No new needs or problems identified. Vitals noted, in general he is resting in bed appears to be in no distress. Breathing unlabored no accessory muscle use good effort. Skin without rashes pallor or icterus. Neuro without focal deficits. Autism with behavioral disturbancescalm again here. Unfortunately had quite a violent outburst almost immediately on arrival to facility. Unfortunately anticipate placement will be difficult. Appreciate case management. Continue current care. Otherwise as above. Subjective Patient seen and evaluated at bedside this morning. No acute events overnight. Very redirectable, no concerns from 1:1. Pt denies pain or needs. Review of Systems Review of Systems: as per HPI Physical Exam Physical Exam: Constitutional: no acute distress HEENT: NCAT, no conjunctival injection CV: extremities well-perfused, no LE edema Resp: no increased work of breathing GI: nondistended MSK: no gross deformities Skin: warm, dry, no rash appreciated Neuro: alert, oriented, no focal neurologic deficit appreciated Resident Activity Tracking Resident Involvement: Resident Care Provided Care Provided: Adult [facility] Medicine
--- NOTE | 2024-05-05 18:34 | Billing Data ---
Date of Service May 05, 2024 Coding Level of Care Code 98727 SUB INP/OBS CARE
--- NOTE | 2024-05-06 07:45 | Hospitalist Progress Note ---
Date of Service May 06, 2024 Assessment & Plan (1) Agitation: (2) Seizure disorder: (3) Combative behavior: (4) Intellectual disability: Plan Pt is a 18 yo male with PMH of autism spectrum disorder, PTSD, IDD, and seizure disorder presenting to the hospital d/t aggressive behavior at his new living facility. He was discharged from [facility] to [facility]. Pt previously living with foster parents who are no longer able to care for him at their home. Agitation/combative behavior in the setting of autism spectrum disorder/IDD - unclear trigger of most recent outburst/change in behavior (?related to environment change to new living facility) - Continue Risperdal to 2mg BID; continue melatonin 3 mg HS and guanfacine 2 mg BID - Re-engage with psychiatry re: Risperdal titration, role for further increasing dose? - per psych- for behavioral emergency: - 1st line zyprexa 2.5mg PO or (5mg IM if necessary) (24 hr max of 20 mg- if IM given, obtain EKG) - 2nd line thorazine 12.5mg PO or (25mg IM if necessary) (24 hr max of 50mg) - Continue 1:1 Seizure disorder - continue home meds; carbamazepine 400mg BID, clobazam 5mg HS - no indication of current seizure activity DVT ppx: ambulation Code: full Dispo: Med/surg; pending placement to longterm residential treatment facility (psych and CM involved) Admission and Anticipated Discharge Date Admission Date: April 28, 2024 Supervising Physician Co-Signing Physician Notes I personally examined the patient and verified all blackwell points of history and exam, discussed case, and agree with decision making with Dr Vergara No new needs or problems identified. playing with cups. Vitals noted, in general he is resting in bed appears to be in no distress. Breathing unlabored no accessory muscle use good effort. Skin without rashes pallor or icterus. Neuro without focal deficits. Autism with behavioral disturbances Doing well with no new issues. Continue current care. Case management working on placement. Otherwise as above. Subjective Patient seen and evaluated at bedside this morning. No acute events overnight. Very redirectable, no concerns from 1:1. Pt denies pain or needs. Review of Systems Review of Systems: as per HPI Physical Exam Physical Exam: Constitutional: no acute distress HEENT: NCAT, no conjunctival injection CV: extremities well-perfused, no LE edema Resp: no increased work of breathing GI: nondistended MSK: no gross deformities Skin: warm, dry, no rash appreciated Neuro: alert, oriented, no focal neurologic deficit appreciated Results & Data Results & Data Vital Signs (Past 12 Hours) Vital Signs Temp Pulse Resp BP Pulse Ox O2 Del Method 05/06/24 07:06 36.4 C L 69 18 112/73 96 Room Air 05/05/24 20:03 36.8 C 82 16 119/75 99 Room Air Resident Activity Tracking Resident Involvement: Resident Care Provided Care Provided: Adult Hospital Medicine
--- NOTE | 2024-05-06 18:16 | Billing Data ---
Date of Service May 06, 2024 Coding Level of Care Code 68124 SUB INP/OBS CARE
--- NOTE | 2024-05-06 18:16 | Billing Data ---
Date of Service May 06, 2024 Coding Level of Care Code 15418 SUB INP/OBS CARE
--- NOTE | 2024-05-07 07:26 | Hospitalist Progress Note ---
Date of Service May 07, 2024 Assessment & Plan (1) Agitation: (2) Seizure disorder: (3) Combative behavior: (4) Intellectual disability: Plan Pt is a 18 yo male with PMH of autism spectrum disorder, PTSD, IDD, and seizure disorder presenting to the hospital d/t aggressive behavior at his new living facility. He was discharged from [facility] to [facility]. Pt previously living with foster parents who are no longer able to care for him at their home. Agitation/combative behavior in the setting of autism spectrum disorder/IDD - unclear trigger of most recent outburst/change in behavior (?related to environment change to new living facility) - Continue Risperdal to 2mg BID; continue melatonin 3 mg HS and guanfacine 2 mg BID - Re-engage with psychiatry re: Risperdal titration, role for further increasing dose? - per psych- for behavioral emergency: - 1st line zyprexa 2.5mg PO or (5mg IM if necessary) (24 hr max of 20 mg- if IM given, obtain EKG) - 2nd line thorazine 12.5mg PO or (25mg IM if necessary) (24 hr max of 50mg) - Continue 1:1 Seizure disorder - continue home meds; carbamazepine 400mg BID, clobazam 5mg HS - no indication of current seizure activity DVT ppx: ambulation Code: full Dispo: Med/surg; pending placement to [facility] facility (psych and CM involved) Admission and Anticipated Discharge Date Admission Date: April 28, 2024 Supervising Physician Co-Signing Physician Notes I personally examined the patient and verified all blackwell points of history and exam, discussed case, and agree with decision making with Dr Vergara No new needs or problems identified. playing with sock, whipping a pillow. smiling at times while he does this. Vitals noted, in general he is resting in bed appears to be in no distress. Breathing unlabored no accessory muscle use good effort. Skin without rashes pallor or icterus. Neuro without focal deficits. Autism with behavioral disturbances Doing well, no new issues. Continue current care. Case management working on placement. Otherwise as above. Subjective Patient seen and evaluated at bedside this morning. No acute events overnight. Very redirectable, no concerns from 1:1. Pt denies pain or needs. Review of Systems Review of Systems: as per HPI Physical Exam Physical Exam: Constitutional: no acute distress HEENT: NCAT, no conjunctival injection CV: extremities well-perfused, no LE edema Resp: no increased work of breathing GI: nondistended MSK: no gross deformities Skin: warm, dry, no rash appreciated Neuro: alert, oriented, no focal neurologic deficit appreciated Results & Data Results & Data Vital Signs (Past 12 Hours) Vital Signs Temp Pulse Pulse Resp BP Pulse Ox O2 Del Method 05/07/24 07:10 36.5 C 93 H 16 116/76 99 Room Air 05/06/24 19:34 36.8 C 70 16 130/68 98 Room Air Resident Activity Tracking Resident Involvement: Resident Care Provided Care Provided: Adult Hospital Medicine
--- NOTE | 2024-05-07 18:29 | Billing Data ---
Date of Service May 07, 2024 Coding Level of Care Code 24728 SUB INP/OBS CARE
--- NOTE | 2024-05-08 08:07 | Hospitalist Progress Note ---
Date of Service May 08, 2024 Assessment & Plan (1) Agitation: (2) Seizure disorder: (3) Combative behavior: (4) Intellectual disability: Plan Pt is a 18 yo male with PMH of autism spectrum disorder, PTSD, IDD, and seizure disorder presenting to the hospital d/t aggressive behavior at his new living facility. He was discharged from [facility] to [facility]. Pt previously living with foster parents who are no longer able to care for him at their home. Agitation/combative behavior in the setting of autism spectrum disorder/IDD - unclear trigger of most recent outburst/change in behavior (?related to environment change to new living facility) - Continue Risperdal to 2mg BID; continue melatonin 3 mg HS and guanfacine 2 mg BID - Re-engage with psychiatry re: Risperdal titration, role for further increasing dose? - per psych- for behavioral emergency: - 1st line zyprexa 2.5mg PO or (5mg IM if necessary) (24 hr max of 20 mg- if IM given, obtain EKG) - 2nd line thorazine 12.5mg PO or (25mg IM if necessary) (24 hr max of 50mg) - Continue 1:1 Seizure disorder - continue home meds; carbamazepine 400mg BID, clobazam 5mg HS - no indication of current seizure activity DVT ppx: ambulation Code: full Dispo: Med/surg; pending placement to alf residential treatment facility (psych and CM involved) Admission and Anticipated Discharge Date Admission Date: April 28, 2024 Supervising Physician Co-Signing Physician Notes I personally examined the patient and verified all blackwell points of history and exam, discussed case, and agree with decision making with Dr Vergara playing [employer]. no new needs. Vitals noted, in general he is resting in bed appears to be in no distress. Breathing unlabored no accessory muscle use good effort. Skin without rashes pallor or icterus. Neuro without focal deficits. Autism with behavioral disturbances continues to do well, no issues in hospital have come up. Continue current care. Case management working on placement. Otherwise as above. Subjective Patient seen and evaluated at bedside this morning, content playing [employer]. No acute events overnight. Very redirectable, no concerns from 1:1. Pt denies pain or needs. Review of Systems Review of Systems: as per HPI Physical Exam Physical Exam: Constitutional: no acute distress HEENT: NCAT, no conjunctival injection CV: extremities well-perfused, no LE edema Resp: no increased work of breathing GI: nondistended MSK: no gross deformities Skin: warm, dry, no rash appreciated Neuro: alert, oriented, no focal neurologic deficit appreciated Results & Data Results & Data Vital Signs (Past 12 Hours) Vital Signs Temp Pulse Resp BP Pulse Ox O2 Del Method 05/08/24 07:10 36.7 C 74 16 116/77 96 Room Air Resident Activity Tracking Resident Involvement: Resident Care Provided Care Provided: Adult Hospital Medicine
--- NOTE | 2024-05-08 17:13 | Billing Data ---
Date of Service May 08, 2024 Coding Level of Care Code 33824 SUB INP/OBS CARE
--- NOTE | 2024-05-09 06:50 | Hospitalist Progress Note ---
Date of Service May 09, 2024 Assessment & Plan (1) Agitation: (2) Seizure disorder: (3) Combative behavior: (4) Intellectual disability: Plan Pt is a 18 yo male with PMH of autism spectrum disorder, PTSD, IDD, and seizure disorder presenting to the hospital d/t aggressive behavior at his new living facility. He was discharged from [facility] to [facility]. Pt previously living with foster parents who are no longer able to care for him at their home. Agitation/combative behavior in the setting of autism spectrum disorder/IDD - unclear trigger of most recent outburst/change in behavior (?related to environment change to new living facility) - increased risperdal this admission to 2mg BID which should be continued; continue melatonin 3 mg HS and guanfacine 2 mg BID - continue 1:1 - per psych- for behavioral emergency: (pt has not needed for many days) - 1st line zyprexa 2.5mg PO or (5mg IM if necessary) (24 hr max of 20 mg- if IM given, obtain EKG) - 2nd line thorazine 12.5mg PO or (25mg IM if necessary) (24 hr max of 50mg) - continue activities pt enjoys (including minecraft, etc) Seizure disorder - continue home meds; carbamazepine 400mg BID, clobazam 5mg HS - no indication of current seizure activity DVT ppx: ambulation Code: full Dispo: Med/surg; [facility] Admission and Anticipated Discharge Date Admission Date: April 28, 2024 Supervising Physician Co-Signing Physician Notes I personally examined the patient and verified all blackwell points of history and exam, discussed case, and agree with decision making with Dr Vergara playing [employer] again today. no new needs. Vitals noted, in general he is r esting in bed appears to be in no distress. Breathing unlabored no accessory muscle use good effort. Skin without rashes pallor or icterus. Neuro without focal deficits. Autism with behavioral disturbances continues to do well, no issues in hospital have come up. Continue current care. Case management working on placement. No changes today. Otherwise as above. Subjective Pt in bed this AM playing [employer] with 1:1. No concerns overnight. Review of Systems Review of Systems: As per HPI Physical Exam Physical Exam: Constitutional: well appearing, no acute distress HEENT: normocephalic CV: clinically well perfused Respiratory: no increased work of breathing Neuro: alert, playing minecraft without difficulty or issue Psych: calm, cooperative, and easily redirectable Results & Data Results & Data Vital Signs (Past 12 Hours) Vital Signs Temp Pulse Resp BP Pulse Ox O2 Del Method 05/08/24 20:47 36.6 C 74 16 124/86 98 Room Air Resident Activity Tracking Resident Involvement: Resident Care Provided Care Provided: Adult Hospital Medicine
--- NOTE | 2024-05-09 18:00 | Billing Data ---
Date of Service May 09, 2024 Coding Level of Care Code 73087 SUB INP/OBS CARE
--- NOTE | 2024-05-10 06:53 | Hospitalist Progress Note ---
Date of Service May 10, 2024 Assessment & Plan (1) Agitation: (2) Seizure disorder: (3) Combative behavior: (4) Intellectual disability: Plan Pt is a 18 yo male with PMH of autism spectrum disorder, PTSD, IDD, and seizure disorder presenting to the hospital d/t aggressive behavior at his new living facility. He was discharged from [facility] to [facility]. Pt previously living with foster parents who are no longer able to care for him at their home. Agitation a/w ASD/IDD - unclear trigger of most recent outburst/change in behavior (potentially acute environmental change) - increased Risperdal this admission to 2mg BID which should be continued; continue melatonin 3 mg HS and guanfacine 2 mg BID - continue 1:1 - per psych- for behavioral emergency: Patient not requiring PRNs for behavioral emergencies at this time - 1st line zyprexa 2.5mg PO or (5mg IM if necessary) (24 hr max of 20 mg- if IM given, obtain EKG) - 2nd line thorazine 12.5mg PO or (25mg IM if necessary) (24 hr max of 50mg) - continue activities pt enjoys (including minecraft, etc) Seizure Disorder - continue home meds; carbamazepine 400mg BID, clobazam 5mg HS - no indication of current seizure activity DVT ppx: ambulation Code: full Dispo: Med/surg; pending placement to aerodynamics teacher residential treatment facility Admission and Anticipated Discharge Date Admission Date: April 28, 2024 Supervising Physician Co-Signing Physician Notes I personally examined the patient and verified all blackwell points of history and exam, discussed case, and agree with decision making with Dr Vergara no problems today, playing minecraft. Vitals noted, in general he is resting in bed appears to be in no distress. Breathing unlabored no accessory muscle use good effort. Skin without rashes pallor or icterus. Neuro without focal deficits. Autism with behavioral disturbances continues to do well, no issues in hospital have come up. Continue current care. placement being sought. No changes today. Otherwise as above. Subjective 1:1 ongoing No acute events overnight. Pleasantly playing mine-craft on IPad w/o concern. Review of Systems Review of Systems: As per HPI Physical Exam Physical Exam: Constitutional: well appearing, NAD HEENT: NCAT CV: Clinically well perfused Respiratory: Non-labored Neuro: Alert, brief eye contact, playing minecraft without difficulty or issue Psych: calm, cooperative, and easily re-directable Results & Data Results & Data Vital Signs (Past 12 Hours) Vital Signs Temp Pulse Resp BP Pulse Ox O2 Del Method 05/09/24 19:59 36.8 C 66 16 129/86 95 Room Air Resident Activity Tracking Resident Involvement: Resident Care Provided Care Provided: Adult Hospital Medicine
--- NOTE | 2024-05-10 17:52 | Billing Data ---
Date of Service May 10, 2024 Coding Level of Care Code 32477 SUB INP/OBS CARE
--- NOTE | 2024-05-11 06:49 | Hospitalist Progress Note ---
Date of Service May 11, 2024 Assessment & Plan (1) Agitation: (2) Seizure disorder: (3) Combative behavior: (4) Intellectual disability: Plan Pt is a 18 yo male with PMH of autism spectrum disorder, PTSD, IDD, and seizure disorder presenting to the hospital d/t aggressive behavior at his new living facility. He was discharged from [facility] to [facility]. Pt previously living with foster parents who are no longer able to care for him at their home. Agitation a/w ASD/IDD - unclear trigger of most recent outburst/change in behavior (potentially acute environmental change) - increased Risperdal this admission to 2mg BID which should be continued; continue melatonin 3 mg HS and guanfacine 2 mg BID - continue 1:1 - per psych- for behavioral emergency: Patient not requiring PRNs for behavioral emergencies at this time - 1st line zyprexa 2.5mg PO or (5mg IM if necessary) (24 hr max of 20 mg- if IM given, obtain EKG) - 2nd line thorazine 12.5mg PO or (25mg IM if necessary) (24 hr max of 50mg) - continue activities pt enjoys (including minecraft, etc) Seizure Disorder - continue home meds; carbamazepine 400mg BID, clobazam 5mg HS - no indication of current seizure activity DVT ppx: ambulation Code: full Dispo: Med/surg; pending [facility] to [facility] Admission and Anticipated Discharge Date Admission Date: April 28, 2024 Supervising Physician Co-Signing Physician Notes I personally examined the patient and verified all blackwell points of history and exam, discussed case, and agree with decision making with Dr Vergara no problems today, again playing minecraft. Vitals noted, in general he is resting in bed appears to be in no distress. Breathing unlabored no accessory muscle use good effort. Skin without rashes pallor or icterus. Neuro without focal deficits. Autism with behavioral disturbances continues to do well, no issues in hospital have come up. Continue current care. placement options being sought. No changes today. Otherwise as above. Subjective Continues to provide complete attention to [employer] game. No signs of distress. 1:1 ongoing No acute events overnight. Review of Systems Review of Systems: As per HPI Physical Exam Physical Exam: Constitutional: well appearing, NAD, engaged in game HEENT: NCAT CV: Clinically well perfused Respiratory: Non-labored Neuro: Alert, no eye contact, playing video game intently Psych: calm, cooperative, and easily re-directable Results & Data Results & Data Vital Signs (Past 12 Hours) Vital Signs Temp Pulse Resp BP Pulse Ox O2 Del Method 05/10/24 19:41 36.7 C 73 16 153/80 H 98 Room Air Resident Activity Tracking Resident Involvement: Resident Care Provided Care Provided: Adult Hospital Medicine
--- NOTE | 2024-05-11 17:19 | Billing Data ---
Date of Service May 11, 2024 Coding Level of Care Code 50804 SUB INP/OBS CARE
--- NOTE | 2024-05-12 07:38 | Hospitalist Progress Note ---
Date of Service May 12, 2024 Assessment & Plan (1) Agitation: (2) Seizure disorder: (3) Combative behavior: (4) Intellectual disability: Plan Pt is a 18 yo male with PMH of autism spectrum disorder, PTSD, IDD, and seizure disorder presenting to the hospital d/t aggressive behavior at his new living facility. He was discharged from [facility] to [facility]. Pt previously living with foster parents who are no longer able to care for him at their home. Agitation a/w ASD/IDD - unclear trigger of most recent outburst/change in behavior (potentially acute environmental change) - increased Risperdal this admission to 2mg BID which should be continued; continue melatonin 3 mg HS and guanfacine 2 mg BID - continue 1:1 - per psych- for behavioral emergency: Patient not requiring PRNs for behavioral emergencies at this time - 1st line zyprexa 2.5mg PO or (5mg IM if necessary) (24 hr max of 20 mg- if IM given, obtain EKG) - 2nd line thorazine 12.5mg PO or (25mg IM if necessary) (24 hr max of 50mg) - continue activities pt enjoys (including minecraft, etc) Seizure Disorder - continue home meds; carbamazepine 400mg BID, clobazam 5mg HS - no indication of current seizure activity DVT ppx: ambulation Code: full Dispo: Med/surg; pending placement to truck terminal manager residential treatment facility Admission and Anticipated Discharge Date Admission Date: April 28, 2024 Supervising Physician Co-Signing Physician Notes Attending attestation Pt seen and examined in concert with Dr. Vergara. In agreement with the documented findings as noted in the resident documentation with any exceptions or additions as noted here. Unable to obtain full history or ROS with patient - appears comfortable and playing Minecraft without complaint. V/S as noted. On examination, S1/S2 nl RRR no MCG. CTAB. Abd NT/ND BS+ve Autism Spectrum Disorder with behavioral disturbance - continue present regimen, no present need for PRN therapy. Case management aware. Else see resident documentation as noted. Subjective Patient seen and evaluated at bedside this morning, content playing Minecraft. No acute events overnight. Very redirectable, no concerns from 1:1. Pt denies pain or needs. Review of Systems Review of Systems: As per HPI Physical Exam Physical Exam: Constitutional: no acute distress HEENT: NCAT, no conjunctival injection CV: extremities well-perfused, no LE edema Resp: no increased work of breathing GI: nondistended MSK: no gross deformities Skin: warm, dry, no rash appreciated Neuro: alert, oriented, no focal neurologic deficit appreciated Results & Data Results & Data Vital Signs (Past 12 Hours) Vital Signs Temp Pulse Resp BP Pulse Ox O2 Del Method 05/12/24 06:54 36.6 C 63 16 99/64 L 98 Room Air 05/11/24 19:54 36.5 C 87 16 121/77 97 Room Air Resident Activity Tracking Resident Involvement: Resident Care Provided Care Provided: Adult Hospital Medicine
--- NOTE | 2024-05-13 07:21 | Hospitalist Progress Note ---
Date of Service May 13, 2024 Assessment & Plan (1) Agitation: (2) Seizure disorder: (3) Combative behavior: (4) Intellectual disability: Plan Pt is a 18 yo male with PMH of autism spectrum disorder, PTSD, IDD, and seizure disorder presenting to the hospital d/t aggressive behavior at his new living facility. He was discharged from [facility] to [facility]. Pt previously living with foster parents who are no longer able to care for him at their home. Agitation a/w ASD/IDD - unclear trigger of most recent outburst/change in behavior (potentially acute environmental change) - increased Risperdal this admission to 2mg BID which should be continued; continue melatonin 3 mg HS and guanfacine 2 mg BID - continue 1:1 - per psych- for behavioral emergency: Patient not requiring PRNs for behavioral emergencies at this time - 1st line zyprexa 2.5mg PO or (5mg IM if necessary) (24 hr max of 20 mg- if IM given, obtain EKG) - 2nd line thorazine 12.5mg PO or (25mg IM if necessary) (24 hr max of 50mg) - continue activities pt enjoys (including minecraft, etc) Seizure Disorder - continue home meds; carbamazepine 400mg BID, clobazam 5mg HS - no indication of current seizure activity DVT ppx: ambulation Code: full Dispo: Med/surg; pending placement to terminal manager residential treatment facility Admission and Anticipated Discharge Date Admission Date: April 28, 2024 Supervising Physician Co-Signing Physician Notes Attending attestation Pt seen and examined in concert with Dr. Vergara. In agreement with the documented findings as noted in the resident documentation with any exceptions or additions as noted here. Unable to obtain full history or ROS with patient - appears comfortable. We played catch today. V/S as noted. On examination, S1/S2 nl RRR no MCG. CTAB. Abd NT/ND BS+ve Autism Spectrum Disorder with behavioral disturbance - continue present regimen, no present need for PRN therapy. Case management aware. Else see resident documentation as noted. Subjective Doing well this morning, no complaints, playing ball calmly. Aide reports no complaints, says pt easy to redirect Review of Systems Review of Systems: As per HPI Physical Exam Physical Exam: Constitutional: no acute distress HEENT: NCAT, no conjunctival injection CV: extremities well-perfused, no LE edema Resp: no increased work of breathing GI: nondistended MSK: no gross deformities Skin: warm, dry, no rash appreciated Neuro: alert, oriented, no focal neurologic deficit appreciated Results & Data Results & Data Vital Signs (Past 12 Hours) Vital Signs Temp Pulse Resp BP Pulse Ox O2 Del Method 05/12/24 19:37 37 C 107 H 18 125/76 99 Room Air Resident Activity Tracking Resident Involvement: Resident Care Provided Care Provided: Adult Hospital Medicine
--- NOTE | 2024-05-14 07:22 | Hospitalist Progress Note ---
Date of Service May 14, 2024 Assessment & Plan (1) Agitation: (2) Seizure disorder: (3) Combative behavior: (4) Intellectual disability: Plan Pt is a 18 yo male with PMH of autism spectrum disorder, PTSD, IDD, and seizure disorder presenting to the hospital d/t aggressive behavior at his new living facility. He was discharged from [facility] to [facility]. Pt previously living with foster parents who are no longer able to care for him at their home. Agitation a/w ASD/IDD - unclear trigger of most recent outburst/change in behavior (potentially acute environmental change) - increased Risperdal this admission to 2mg BID which should be continued; continue melatonin 3 mg HS and guanfacine 2 mg BID - continue 1:1 - per psych- for behavioral emergency: Patient not requiring PRNs for behavioral emergencies at this time - 1st line zyprexa 2.5mg PO or (5mg IM if necessary) (24 hr max of 20 mg- if IM given, obtain EKG) - 2nd line thorazine 12.5mg PO or (25mg IM if necessary) (24 hr max of 50mg) - continue activities pt enjoys (including minecraft, etc) Seizure Disorder - continue home meds; carbamazepine 400mg BID, clobazam 5mg HS - no indication of current seizure activity DVT ppx: ambulation Code: full Dispo: Med/surg; pending placement to [facility] mining machine tender residential treatment facility Admission and Anticipated Discharge Date Admission Date: April 28, 2024 Supervising Physician Co-Signing Physician Notes Attending attestation Pt seen and examined in concert with Dr. Vergara. In agreement with the documented findings as noted in the resident documentation with any exceptions or additions as noted here. Unable to obtain full history or ROS with patient - appears comfortable. Building [place] in minecraft. V/S as noted. On examination, S1/S2 nl RRR no MCG. CTAB. Abd NT/ND BS+ve Autism Spectrum Disorder with behavioral disturbance - continue present regimen, no present need for PRN therapy. Case management aware. Else see resident documentation as noted. Subjective Doing well this morning, no complaints, playing Minecraft calmly. Aide reports no complaints, pt remains easy to redirect Review of Systems Review of Systems: As per HPI Physical Exam Physical Exam: Constitutional: no acute distress HEENT: NCAT, no conjunctival injection CV: extremities well-perfused, no LE edema Resp: no increased work of breathing GI: nondistended MSK: no gross deformities Skin: warm, dry, no rash appreciated Neuro: alert, oriented, no focal neurologic deficit appreciated Results & Data Results & Data Vital Signs (Past 12 Hours) Vital Signs Temp Pulse Resp BP Pulse Ox O2 Del Method 05/14/24 07:08 36.2 C L 76 14 118/76 99 Room Air 05/13/24 19:50 36.4 C L 76 16 128/85 100 Room Air Resident Activity Tracking Resident Involvement: Resident Care Provided Care Provided: Adult Hospital Medicine
--- NOTE | 2024-05-15 08:12 | Hospitalist Progress Note ---
Date of Service May 15, 2024 Assessment & Plan (1) Agitation: (2) Seizure disorder: (3) Combative behavior: (4) Intellectual disability: Plan Pt is a 18 yo male with PMH of autism spectrum disorder, PTSD, IDD, and seizure disorder presenting to the hospital d/t aggressive behavior at his new living facility. He was discharged from [facility] to [facility]. Pt previously living with foster parents who are no longer able to care for him at their home. Agitation a/w ASD/IDD - unclear trigger of most recent outburst/change in behavior (potentially acute environmental change) - increased Risperdal this admission to 2mg BID which should be continued; continue melatonin 3 mg HS and guanfacine 2 mg BID - continue 1:1 - per psych- for behavioral emergency: Patient not requiring PRNs for behavioral emergencies at this time - 1st line zyprexa 2.5mg PO or (5mg IM if necessary) (24 hr max of 20 mg- if IM given, obtain EKG) - 2nd line thorazine 12.5mg PO or (25mg IM if necessary) (24 hr max of 50mg) - continue activities pt enjoys (including minecraft, etc) Seizure Disorder - continue home meds; carbamazepine 400mg BID, clobazam 5mg HS - no indication of current seizure activity DVT ppx: ambulation Code: full Dispo: Med/surg; pending placement to salvage determiner residential treatment facility Admission and Anticipated Discharge Date Admission Date: April 28, 2024 Supervising Physician Co-Signing Physician Notes Attending attestation Pt seen and examined in concert with Dr. Vergara. In agreement with the documented findings as noted in the resident documentation with any exceptions or additions as noted here. Unable to obtain full history or ROS with patient - appears comfortable. Still building [place] in minecraft. V/S as noted. On examination, S1/S2 nl RRR no MCG. CTAB. Abd NT/ND BS+ve Autism Spectrum Disorder with behavioral disturbance - continue present regimen, no present need for PRN therapy. Case management aware. Else see resident documentation as noted. Subjective Doing well this morning, no complaints, having breakfast. Aide reports no complaints, pt remains easy to redirect Review of Systems Review of Systems: As per HPI Physical Exam Physical Exam: Constitutional: no acute distress HEENT: NCAT, no conjunctival injection CV: extremities well-perfused, no LE edema Resp: no increased work of breathing GI: nondistended MSK: no gross deformities Skin: warm, dry, no rash appreciated Neuro: alert, oriented, no focal neurologic deficit appreciated Resident Activity Tracking Resident Involvement: Resident Care Provided Care Provided: Adult Hospital Medicine
--- NOTE | 2024-05-16 06:59 | Hospitalist Progress Note ---
Date of Service May 16, 2024 Assessment & Plan (1) Agitation: (2) Seizure disorder: (3) Combative behavior: (4) Intellectual disability: Plan Pt is a 18 yo male with PMH of autism spectrum disorder, PTSD, IDD, and seizure disorder presenting to the hospital d/t aggressive behavior at his new living facility. He was discharged from [facility] to [facility]. Pt previously living with foster parents who are no longer able to care for him at their home. Agitation a/w ASD/IDD - unclear trigger of most recent outburst/change in behavior (potentially acute environmental change) - increased Risperdal this admission to 2mg BID which should be continued; continue melatonin 3 mg HS and guanfacine 2 mg BID - continue 1:1 - per psych- for behavioral emergency: Patient not requiring PRNs for behavioral emergencies at this time - 1st line zyprexa 2.5mg PO or (5mg IM if necessary) (24 hr max of 20 mg- if IM given, obtain EKG) - 2nd line thorazine 12.5mg PO or (25mg IM if necessary) (24 hr max of 50mg) - continue activities pt enjoys (including minecraft, etc) Seizure Disorder - continue home meds; carbamazepine 400mg BID, clobazam 5mg HS - no indication of current seizure activity DVT ppx: ambulation Code: full Dispo: Med/surg; pending placement to [facility] [employer] [facility] residential treatment facility Admission and Anticipated Discharge Date Admission Date: April 28, 2024 Supervising Physician Co-Signing Physician Notes Attending Physician Supervision Note: I independently interviewed and examined the patient and verified the blackwell history and physical, reviewed labs and image studies and agree with findings and care plan noted above. Subjective Patient sleeping when seen this morning. Aide reports no complaints, pt remains easy to redirect Review of Systems Review of Systems: As per HPI Physical Exam Physical Exam: Constitutional: no acute distress HEENT: NCAT, no conjunctival injection CV: extremities well-perfused, no LE edema Resp: no increased work of breathing GI: nondistended MSK: no gross deformities Skin: warm, dry, no rash appreciated Neuro: alert, oriented, no focal neurologic deficit appreciated Results & Data Results & Data Vital Signs (Past 12 Hours) Vital Signs Temp Pulse Resp BP Pulse Ox O2 Del Method 05/15/24 20:43 36.6 C 101 H 16 121/61 95 Room Air Resident Activity Tracking Resident Involvement: Resident Care Provided Care Provided: Adult Hospital Medicine
--- NOTE | 2024-05-17 07:20 | Hospitalist Progress Note ---
Date of Service May 17, 2024 Assessment & Plan (1) Agitation: (2) Seizure disorder: (3) Combative behavior: (4) Intellectual disability: Plan Pt is a 18 yo male with PMH of autism spectrum disorder, PTSD, IDD, and seizure disorder presenting to the hospital d/t aggressive behavior at his new living facility. He was discharged from [facility] to [facility]. Pt previously living with foster parents who are no longer able to care for him at their home. Agitation a/w ASD/IDD - unclear trigger of most recent outburst/change in behavior (potentially acute environmental change) - increased Risperdal this admission to 2mg BID which should be continued; continue melatonin 3 mg HS and guanfacine 2 mg BID - continue 1:1 - per psych- for behavioral emergency: Patient not requiring PRNs for behavioral emergencies at this time - 1st line zyprexa 2.5mg PO or (5mg IM if necessary) (24 hr max of 20 mg- if IM given, obtain EKG) - 2nd line thorazine 12.5mg PO or (25mg IM if necessary) (24 hr max of 50mg) - continue activities pt enjoys (including minecraft, etc) Seizure Disorder - continue home meds; carbamazepine 400mg BID, clobazam 5mg HS - no indication of current seizure activity DVT ppx: ambulation Code: full Dispo: Med/surg; pending placement to termite control service representative residential treatment facility Admission and Anticipated Discharge Date Admission Date: April 28, 2024 Supervising Physician Co-Signing Physician Notes Attending Physician Supervision Note: I independently interviewed and examined the patient and verified the blackwell history and physical, reviewed labs and image studies and agree with findings and care plan noted above. Subjective Doing well this morning, no complaints, calmly cecily. Aide reports no complaints, pt remains easy to redirect Review of Systems Review of Systems: As per HPI Physical Exam Physical Exam: Constitutional: no acute distress HEENT: NCAT, no conjunctival injection CV: extremities well-perfused, no LE edema Resp: no increased work of breathing GI: nondistended MSK: no gross deformities Skin: warm, dry, no rash appreciated Neuro: alert, oriented, no focal neurologic deficit appreciated Results & Data Results & Data Vital Signs (Past 12 Hours) Temp Pulse Resp BP Pulse Ox O2 Del Method 36.3 C L 77 16 119/74 99 Room Air 05/17/24 08:23 05/17/24 08:23 05/17/24 08:23 05/17/24 08:23 05/17/24 08:23 05/17/24 08:23 Resident Activity Tracking Resident Involvement: Resident Care Provided Care Provided: Adult Hospital Medicine
--- NOTE | 2024-05-18 08:05 | Hospitalist Progress Note ---
Date of Service May 18, 2024 Assessment & Plan (1) Agitation: (2) Seizure disorder: (3) Combative behavior: (4) Intellectual disability: Plan Pt is a 18 yo male with PMH of autism spectrum disorder, PTSD, IDD, and seizure disorder presenting to the hospital d/t aggressive behavior at his new living facility. He was discharged from [facility] to [facility]. Pt previously living with foster parents who are no longer able to care for him at their home. Agitation a/w ASD/IDD - unclear trigger of most recent outburst/change in behavior (potentially acute environmental change) - increased Risperdal this admission to 2mg BID which should be continued; continue melatonin 3 mg HS and guanfacine 2 mg BID - continue 1:1 - per psych- for behavioral emergency: Patient not requiring PRNs for behavioral emergencies at this time - 1st line zyprexa 2.5mg PO or (5mg IM if necessary) (24 hr max of 20 mg- if IM given, obtain EKG) - 2nd line thorazine 12.5mg PO or (25mg IM if necessary) (24 hr max of 50mg) - continue activities pt enjoys (including minecraft, etc) Seizure Disorder - continue home meds; carbamazepine 400mg BID, clobazam 5mg HS - no indication of current seizure activity DVT ppx: ambulation Code: full Dispo: Med/surg; pending placement to local intermodal truck driver residential treatment facility Admission and Anticipated Discharge Date Admission Date: April 28, 2024 Supervising Physician Co-Signing Physician Notes Attending Physician Supervision Note: I independently interviewed and examined the patient and verified the blackwell history and physical, reviewed labs and image studies and agree with findings and care plan noted above. Subjective Doing well this morning, no complaints, calmly cecily. Aide reports no complaints, pt remains easy to redirect Review of Systems Review of Systems: As per HPI Physical Exam Physical Exam: Constitutional: no acute distress HEENT: NCAT, no conjunctival injection CV: extremities well-perfused, no LE edema Resp: no increased work of breathing GI: nondistended MSK: no gross deformities Skin: warm, dry, no rash appreciated Neuro: alert, oriented, no focal neurologic deficit appreciated Resident Activity Tracking Resident Involvement: Resident Care Provided Care Provided: Adult Hospital Medicine
--- NOTE | 2024-05-19 07:31 | Hospitalist Progress Note ---
Date of Service May 19, 2024 Assessment & Plan (1) Agitation: (2) Seizure disorder: (3) Combative behavior: (4) Intellectual disability: Plan Pt is a 18 yo male with PMH of autism spectrum disorder, PTSD, IDD, and seizure disorder presenting to the hospital d/t aggressive behavior at his new living facility. He was discharged from [facility] to [facility]. Pt previously living with foster parents who are no longer able to care for him at their home. Agitation a/w ASD/IDD - unclear trigger of most recent outburst/change in behavior (potentially acute environmental change) - increased Risperdal this admission to 2mg BID which should be continued; continue melatonin 3 mg HS and guanfacine 2 mg BID - continue 1:1 - per psych- for behavioral emergency: Patient not requiring PRNs for behavioral emergencies at this time - 1st line zyprexa 2.5mg PO or (5mg IM if necessary) (24 hr max of 20 mg- if IM given, obtain EKG) - 2nd line thorazine 12.5mg PO or (25mg IM if necessary) (24 hr max of 50mg) - continue activities pt enjoys (including minecraft, etc) Seizure Disorder - continue home meds; carbamazepine 400mg BID, clobazam 5mg HS - no indication of current seizure activity DVT ppx: ambulation Code: full Dispo: Med/surg; pending placement to [facility] residential treatment facility Admission and Anticipated Discharge Date Admission Date: April 28, 2024 Supervising Physician Co-Signing Physician Notes I personally examined the patient and verified all blackwell points of history and exam, discussed case, and agree with decision making with Dr Burns no problems today,napping. Vitals noted, in general he is resting in bed appears to be in no distress. Breathing unlabored no accessory muscle use good effort. Skin without rashes pallor or icterus. Neuro without focal deficits. Autism with behavioral disturbances continues to do well, no issues in hospital have come up. Continue current care. placement options being sought - difficult. No changes today. Otherwise as above. Subjective Patient sleeping when seen this morning. Aide reports no complaints, pt remains easy to redirect Review of Systems Review of Systems: As per HPI Physical Exam Physical Exam: Constitutional: no acute distress HEENT: NCAT, no conjunctival injection CV: extremities well-perfused, no LE edema Resp: no increased work of breathing GI: nondistended MSK: no gross deformities Skin: warm, dry, no rash appreciated Neuro: alert, oriented, no focal neurologic deficit appreciated Results & Data Results & Data Vital Signs (Past 12 Hours) Vital Signs Temp Pulse Resp BP Pulse Ox O2 Del Method 05/18/24 20:07 36.4 C L 67 16 114/70 100 Room Air Resident Activity Tracking Resident Involvement: Resident Care Provided Care Provided: Adult Hospital Medicine
--- NOTE | 2024-05-19 18:08 | Billing Data ---
Date of Service May 19, 2024 Coding Level of Care Code 65594 SUB INP/OBS CARE
--- NOTE | 2024-05-20 07:54 | Hospitalist Progress Note ---
Date of Service May 20, 2024 Assessment & Plan (1) Agitation: (2) Seizure disorder: (3) Combative behavior: (4) Intellectual disability: Plan Pt is a 18 yo male with PMH of autism spectrum disorder, PTSD, IDD, and seizure disorder presenting to the hospital d/t aggressive behavior at his new living facility. He was discharged from [facility] to [facility]. Pt previously living with foster parents who are no longer able to care for him at their home. Agitation a/w ASD/IDD - unclear trigger of most recent outburst/change in behavior (potentially acute environmental change) - increased Risperdal this admission to 2mg BID which should be continued; continue melatonin 3 mg HS and guanfacine 2 mg BID - continue 1:1 - per psych- for behavioral emergency: Patient not requiring PRNs for behavioral emergencies at this time - 1st line zyprexa 2.5mg PO or (5mg IM if necessary) (24 hr max of 20 mg- if IM given, obtain EKG) - 2nd line thorazine 12.5mg PO or (25mg IM if necessary) (24 hr max of 50mg) - continue activities pt enjoys (including minecraft, etc) Seizure Disorder - continue home meds; carbamazepine 400mg BID, clobazam 5mg HS - no indication of current seizure activity DVT ppx: ambulation Code: full Dispo: Med/surg; pending placement to intermission coordinator residential treatment facility Admission and Anticipated Discharge Date Admission Date: April 28, 2024 Supervising Physician Co-Signing Physician Notes I personally examined the patient and verified all blackwell points of history and exam, discussed case, and agree with decision making with Dr Burns no problems today, playing with pillow and bedsheets. Vitals noted, in general he is playing in the room no problems. Breathing unlabored no accessory muscle use good effort. Skin without rashes pallor or icterus. Neuro without focal deficits. Autism with behavioral disturbances continues to do well, no issues in hospital have come up. Continue current care. placement options still being sought - difficult. No changes today. Otherwise as above. Subjective Doing well this morning, no complaints, calmly cecily. Aide reports no complaints, pt remains easy to redirect Review of Systems Review of Systems: As per HPI Physical Exam Physical Exam: Constitutional: no acute distress HEENT: NCAT, no conjunctival injection CV: extremities well-perfused, no LE edema Resp: no increased work of breathing GI: nondistended MSK: no gross deformities Skin: warm, dry, no rash appreciated Neuro: alert, oriented, no focal neurologic deficit appreciated Resident Activity Tracking Resident Involvement: Resident Care Provided Care Provided: Adult [facility] Medicine
--- NOTE | 2024-05-20 18:02 | Billing Data ---
Date of Service May 20, 2024 Coding Level of Care Code 04645 SUB INP/OBS CARE
--- NOTE | 2024-05-21 07:06 | Hospitalist Progress Note ---
Date of Service May 21, 2024 Assessment & Plan (1) Agitation: (2) Seizure disorder: (3) Combative behavior: (4) Intellectual disability: Plan Pt is a 18 yo male with PMH of autism spectrum disorder, PTSD, IDD, and seizure disorder presenting to the hospital d/t aggressive behavior at his new living facility. He was discharged from [facility] to [facility]. Pt previously living with foster parents who are no longer able to care for him at their home. Agitation a/w ASD/IDD - unclear trigger of most recent outburst/change in behavior (potentially acute environmental change) - increased Risperdal this admission to 2mg BID which should be continued; continue melatonin 3 mg HS and guanfacine 2 mg BID - continue 1:1 - per psych- for behavioral emergency: Patient not requiring PRNs for behavioral emergencies at this time - 1st line zyprexa 2.5mg PO or (5mg IM if necessary) (24 hr max of 20 mg- if IM given, obtain EKG) - 2nd line thorazine 12.5mg PO or (25mg IM if necessary) (24 hr max of 50mg) - continue activities pt enjoys (including minecraft, etc) Seizure Disorder - continue home meds; carbamazepine 400mg BID, clobazam 5mg HS - no indication of current seizure activity DVT ppx: ambulation Code: full Dispo: Med/surg; pending placement to [facility] heat[facility] residential treatment facility Admission and Anticipated Discharge Date Admission Date: April 28, 2024 Supervising Physician Co-Signing Physician Notes I personally examined the patient and verified all blackwell points of history and exam, discussed case, and agree with decision making with Dr Burns no problems today, nursing notes no issues. Vitals noted, in general he is playing in the room no problems. Breathing unlabored no accessory muscle use good effort. Skin without rashes pallor or icterus. Neuro without focal deficits. Autism with behavioral disturbances continues to do well, no issues in hospital have come up. Continue current care. placement options still being sought - none yet. No changes today. Otherwise as above. Subjective Doing well this morning, no complaints, playing some game with water. Aide reports no complaints, pt remains easy to redirect Review of Systems Review of Systems: As per HPI Physical Exam Physical Exam: Constitutional: no acute distress HEENT: NCAT, no conjunctival injection CV: extremities well-perfused, no LE edema Resp: no increased work of breathing GI: nondistended MSK: no gross deformities Skin: warm, dry, no rash appreciated Neuro: alert, oriented, no focal neurologic deficit appreciated Results & Data Results & Data Vital Signs (Past 12 Hours) Vital Signs Temp Pulse Resp BP Pulse Ox O2 Del Method 05/20/24 19:32 36.6 C 77 16 114/70 97 Room Air Resident Activity Tracking Resident Involvement: Resident Care Provided Care Provided: Adult Hospital Medicine
--- NOTE | 2024-05-21 16:23 | Billing Data ---
Date of Service May 21, 2024 Coding Level of Care Code 95510 SUB INP/OBS CARE
--- NOTE | 2024-05-22 10:27 | Hospitalist Progress Note ---
Date of Service May 22, 2024 Assessment & Plan (1) Agitation: (2) Seizure disorder: (3) Combative behavior: (4) Intellectual disability: Plan Pt is a 18 yo male with PMH of autism spectrum disorder, PTSD, IDD, and seizure disorder presenting to the hospital d/t aggressive behavior at his new living facility. He was discharged from [facility] to [facility]. Pt previously living with foster parents who are no longer able to care for him at their home. Agitation a/w ASD/IDD - unclear trigger of most recent outburst/change in behavior (potentially acute environmental change) - increased Risperdal this admission to 2mg BID which should be continued; continue melatonin 3 mg HS and guanfacine 2 mg BID - continue 1:1 - per psych- for behavioral emergency: Patient not requiring PRNs for behavioral emergencies at this time - 1st line zyprexa 2.5mg PO or (5mg IM if necessary) (24 hr max of 20 mg- if IM given, obtain EKG) - 2nd line thorazine 12.5mg PO or (25mg IM if necessary) (24 hr max of 50mg) - continue activities pt enjoys (including minecraft, etc) Seizure Disorder - continue home meds; carbamazepine 400mg BID, clobazam 5mg HS - no indication of current seizure activity DVT ppx: ambulation Code: full Dispo: Med/surg; pending placement to ferry terminal agent residential treatment facility Admission and Anticipated Discharge Date Admission Date: April 28, 2024 Supervising Physician Co-Signing Physician Notes I personally examined the patient and verified all blackwell points of history and exam, discussed case, and agree with decision making with Dr Burns no problems today, nursing notes no issues. playing minecraft. Vitals noted, in general he is playing in the room no problems. Breathing unlabored no accessory muscle use good effort. Skin without rashes pallor or icterus. Neuro without focal deficits. Autism with behavioral disturbances continues to do well, no issues in hospital have come up. Continue current care. placement options still being sought - anticipate that this will be slow. No changes today. Otherwise as above. Subjective Doing well this morning. Aide reports no concerns, pt still easy to redirect Review of Systems Review of Systems: As per HPI Physical Exam Physical Exam: Constitutional: no acute distress HEENT: NCAT, no conjunctival injection CV: extremities well-perfused, no LE edema Resp: no increased work of breathing GI: nondistended MSK: no gross deformities Skin: warm, dry, no rash appreciated Neuro: alert, oriented, no focal neurologic deficit appreciated Resident Activity Tracking Resident Involvement: Resident Care Provided Care Provided: Adult Hospital Medicine
--- NOTE | 2024-05-22 13:06 | Billing Data ---
Date of Service May 22, 2024 Coding Level of Care Code [id number] SUB INP/OBS CARE
--- NOTE | 2024-05-23 07:22 | Hospitalist Progress Note ---
Date of Service May 23, 2024 Assessment & Plan (1) Agitation: (2) Seizure disorder: (3) Combative behavior: (4) Intellectual disability: Plan Pt is a 18 yo male with PMH of autism spectrum disorder, PTSD, IDD, and seizure disorder presenting to the hospital d/t aggressive behavior at his new living facility. He was discharged from [facility] to [facility]. Pt previously living with foster parents who are no longer able to care for him at their home. Agitation a/w ASD/IDD - unclear trigger of most recent outburst/change in behavior (potentially acute environmental change) - increased Risperdal this admission to 2mg BID which should be continued; continue melatonin 3 mg HS and guanfacine 2 mg BID - continue 1:1 - per psych- for behavioral emergency: Patient not requiring PRNs for behavioral emergencies at this time - 1st line zyprexa 2.5mg PO or (5mg IM if necessary) (24 hr max of 20 mg- if IM given, obtain EKG) - 2nd line thorazine 12.5mg PO or (25mg IM if necessary) (24 hr max of 50mg) - continue activities pt enjoys (including minecraft, etc) Seizure Disorder - continue home meds; carbamazepine 400mg BID, clobazam 5mg HS - no indication of current seizure activity DVT ppx: ambulation Code: full Dispo: Med/surg; pending placement to exterminator residential treatment facility Admission and Anticipated Discharge Date Admission Date: April 28, 2024 Supervising Physician Co-Signing Physician Notes I personally examined the patient and verified all blackwell points of history and exam, discussed case, and agree with decision making with Dr Burns playing [employer], appearing happy. Nursing notes no needs. Vitals noted, in general he is playing in the room no problems. Breathing unlabored no accessory muscle use good effort. Skin without rashes pallor or icterus. Neuro without focal deficits. Autism with behavioral disturbances continues to do well, no issues in hospital have come up. Continue current care. placement options Continuing to be sought out. No changes today. Otherwise as above. Subjective Doing well this morning, happily playing a game. Aide reports no concerns, pt still easy to redirect Review of Systems Review of Systems: As per HPI Physical Exam Physical Exam: Constitutional: no acute distress HEENT: NCAT, no conjunctival injection CV: extremities well-perfused, no LE edema Resp: no increased work of breathing GI: nondistended MSK: no gross deformities Skin: warm, dry, no rash appreciated Neuro: alert, oriented, no focal neurologic deficit appreciated Results & Data Results & Data Vital Signs (Past 12 Hours) Vital Signs Temp Pulse Resp BP Pulse Ox O2 Del Method 05/22/24 19:34 36.2 C L 71 18 129/81 100 Room Air Resident Activity Tracking Resident Involvement: Resident Care Provided Care Provided: Adult Hospital Medicine
--- NOTE | 2024-05-23 13:38 | Billing Data ---
Date of Service May 23, 2024 Coding Level of Care Code 37696 SUB INP/OBS CARE
--- NOTE | 2024-05-24 07:17 | Hospitalist Progress Note ---
Date of Service May 24, 2024 Assessment & Plan (1) Agitation: (2) Seizure disorder: (3) Combative behavior: (4) Intellectual disability: Plan Pt is a 18 yo male with PMH of autism spectrum disorder, PTSD, IDD, and seizure disorder presenting to the hospital d/t aggressive behavior at his new living facility. He was discharged from [facility] to [facility]. Pt previously living with foster parents who are no longer able to care for him at their home. Agitation a/w ASD/IDD - unclear trigger of most recent outburst/change in behavior (potentially acute environmental change) - increased Risperdal this admission to 2mg BID which should be continued; continue melatonin 3 mg HS and guanfacine 2 mg BID - continue 1:1 - per psych- for behavioral emergency: Patient not requiring PRNs for behavioral emergencies at this time - 1st line zyprexa 2.5mg PO or (5mg IM if necessary) (24 hr max of 20 mg- if IM given, obtain EKG) - 2nd line thorazine 12.5mg PO or (25mg IM if necessary) (24 hr max of 50mg) - continue activities pt enjoys (including minecraft, etc) Seizure Disorder - continue home meds; carbamazepine 400mg BID, clobazam 5mg HS - no indication of current seizure activity DVT ppx: ambulation Code: full Dispo: Med/surg; pending placement to terminal manager residential treatment facility Admission and Anticipated Discharge Date Admission Date: April 28, 2024 Supervising Physician Co-Signing Physician Notes I personally examined the patient and verified all blackwell points of history and exam, discussed case, and agree with decision making with Dr Camila silveira, awakens easily. no new issues/needs/problems noted. Nursing notes no needs. Vitals noted, in general he is playing in the room no problems. Breathing unlabored no accessory muscle use good effort. Skin without rashes pallor or icterus. Neuro without focal deficits. Autism with behavioral disturbances continues to do well, no issues in hospital have come up. Continue current care. for placement once fitting facility is found. No changes today. Otherwise as above. Subjective No new change this AM. One on one is continued, no new issue as per nurse on bedside. Vishnu was overall calm, had some interaction. Pleasant looking, curious if play with my stethoscope and tried to grab it from me. Stable overall. Review of Systems Review of Systems: As per HPI Physical Exam Physical Exam: Constitutional: no acute distress HEENT: NCAT, no conjunctival injection CV: extremities well-perfused, no LE edema Resp: no increased work of breathing GI: nondistended MSK: no gross deformities Neuro: Alert, no new change per nurse by side Resident Activity Tracking Resident Involvement: Resident Care Provided Care Provided: Adult Hospital Medicine
--- NOTE | 2024-05-24 10:48 | Billing Data ---
Date of Service May 24, 2024 Coding Level of Care Code 77030 SUB INP/OBS CARE
--- NOTE | 2024-05-25 07:30 | Hospitalist Progress Note ---
Date of Service May 25, 2024 Assessment & Plan (1) Agitation: (2) Seizure disorder: (3) Combative behavior: (4) Intellectual disability: Plan Pt is a 18 yo male with PMH of autism spectrum disorder, PTSD, IDD, and seizure disorder presenting to the hospital d/t aggressive behavior at his new living facility. He was discharged from [facility] to [facility]. Pt previously living with foster parents who are no longer able to care for him at their home. Agitation a/w ASD/IDD - unclear trigger of most recent outburst/change in behavior (potentially acute environmental change) - increased Risperdal this admission to 2mg BID which should be continued; continue melatonin 3 mg HS and guanfacine 2 mg BID - continue 1:1 - per psych- for behavioral emergency: Patient not requiring PRNs for behavioral emergencies at this time - 1st line zyprexa 2.5mg PO or (5mg IM if necessary) (24 hr max of 20 mg- if IM given, obtain EKG) - 2nd line thorazine 12.5mg PO or (25mg IM if necessary) (24 hr max of 50mg) - continue activities pt enjoys (including mine craft, etc) Seizure Disorder - continue home meds; carbamazepine 400mg BID, clobazam 5mg HS - no indication of current seizure activity DVT ppx: ambulation Code: full Dispo: Med/surg; pending placement to custodial residential treatment facility Admission and Anticipated Discharge Date Admission Date: April 28, 2024 Supervising Physician Co-Signing Physician Notes I personally examined the patient and verified all blackwell points of history and exam, discussed case, and agree with decision making with Dr Jensen was more agitated this morning - in d/w [employer] no clear triggers but apparently didn't sleep well last night as possible trigger. was getting more violent with using sheet as a whip/more destructive, and then was apparently punching things and ramming up against the window. does not seem to have truly injured himself and did not become violent with staff, but given behaviors were getting more violent and putting him at risk of self harm (especially ramming against the window) 5mg olanzapine IM x1 given. when i see him he is resting/nearly asleep but does open eyes, no distress/agitation. vitals noted resting almost asleep no distress/agitation. breathing unlabored no accessory muscles good effort skin no rashes no pallor or icterus neuro no focal deficits Autism with behavioral disturbances overall has been doing well except for today he briefly got more agitated/destructive/risk of self harm necessitating zyprexa IM x1 - ?lack of sleep as agitating factor? if poor sleep continues, consider raising melatonin vs HS psych meds (would probably start w increase in melatonin) but since the agitation last required a prn dose about a month ago (and was right after readmission) will hold on escalations for now. Continue current care. for placement once fitting facility is found. Otherwise as above. Subjective Avelino seems destructive this morning. He was throwing, hitting pillows, francisco w hen i was there. Nurse mentioned he was hitting ceiling, windows, basin, wall before I was there. Does not seem hurting people, though. Zyprexa was given 5 mg IM before I was there, 25 minutes ago. He was still running here and there, hitting pillow,will wait for progress. Recommended nursing team to let us know misael if he's threatening person. We might need to repeat Zyprexa, however would avoid as far as possible. Reached his nurse aroun 10 am ; he is more calm now. Will continue same treatment. Review of Systems Review of Systems: As per HPI Physical Exam Physical Exam: Constitutional: in acute distress, moving here and there in room, hitting pillows, farncisco CV: extremities well-perfused, no LE edema Resp: no increased work of breathing GI: nondistended MSK: no gross deformities Neuro: Alert, no new change per nurse by side Results & Data Results & Data Vital Signs (Past 12 Hours) Vital Signs Temp Pulse Resp BP Pulse Ox O2 Del Method 05/25/24 07:08 36.6 C 80 14 169/94 H 99 Room Air 05/24/24 19:32 36.8 C 88 18 108/63 99 Room Air Resident Activity Tracking Resident Involvement: Resident Care Provided Care Provided: Adult Hospital Medicine
--- NOTE | 2024-05-25 10:37 | Billing Data ---
Date of Service May 25, 2024 Coding Level of Care Code 57401 SUB INP/OBS CARE MIN
[2024-05-25] MEDS: OLANZapine 10 MG/2.1 ML SDV IM STA ×2 (12:30→13:00)
--- NOTE | 2024-05-25 14:06 | Electrocardiogram Report ---
Test Reason : Blood Pressure : */* mmHG Vent. Rate : 93 BPM Atrial Rate : 93 BPM P-R Int : 322 ms QRS Dur : 76 ms QT Int : 308 ms P-R-T Axes : 70 72 45 degrees QTcB Int : 382 ms Sinus rhythm with 1st degree A-V block Minor Anterior ST elevation, most consistent with repolarization variant Voltage criteria for left ventricular hypertrophy Abnormal ECG When compared with ECG of 09-Apr-2024 05:41, No significant change Confirmed by Himanshu Siegel ([id number]) on 05/25/2024 2:06:17 PM Referred By: REFERRED SELF Confirmed By: Himanshu Siegel
--- NOTE | 2024-05-26 08:16 | Hospitalist Progress Note ---
Date of Service May 26, 2024 Assessment & Plan (1) Agitation: Plan: Pt is a 18 yo male with PMH of autism spectrum disorder, PTSD, IDD, and seizure disorder presenting to the hospital d/t aggressive behavior at his new living facility. He was discharged from [facility], after a prolonged stay, to [facility]. Pt previously living with foster parents who are no longer able to care for him at their home. ASD/IDD with associated agitation/combativeness Medication regimen: Risperdal 2 mg BID, melatonin 3 mg HS, guanfacine 2 mg BID. Optimize sleep wake schedule. Encourage play/things the patient enjoys. Appreciate psych recs. In case of behavioral emergency: last required 05/25 13:00 1. Zyprexa 2.5mg PO or (5mg IM if necessary) (24 hr max of 20 mg - if IM given, obtain EKG) 2. Thorazine 12.5mg PO or (25mg IM if necessary) (24 hr max of 50mg) (2) Seizure disorder: Plan: Continue home meds; carbamazepine 400mg BID, clobazam 5mg HS. No current seizure like activity (3) Combative behavior: (4) Intellectual disability: Plan Code status: full DVT ppx: low risk, ambulatory FENGI: regular, safe tray Dispo: long-term residential treatment facility required, awaiting placement Admission and Anticipated Discharge Date Admission Date: April 28, 2024 Supervising Physician Co-Signing Physician Notes I also saw the patient and confirmed blackwell portions of the clinical history and physical examination. Not very talkative today; seated in bed, no signs of agitation at present. One-to-one present. I agree with the impression and plan as noted in resident documentation above. Placement search continues. Subjective Patient seen at bedside this AM. Walking calmly around the room. Per nursing patient had just woken up. Received two doses IM Zyprexxa for acute agitation yesterday. Slept from around 2 pm until this morning. Patient without concerns today. Review of Systems Review of Systems: As per HPI Physical Exam Physical Exam: Gen: well appearing patient in NAD HEENT: AT NC MMM Resp: no increased work of breathing CV: clinically well perfused Abd: non-distended MSK: no obvious deformities Skin: no rashes or bruising Neuro: alert and oriented, calm Psych: appropriate mood and affect Results & Data Results & Data Vital Signs (Past 12 Hours) Vital Signs Temp Pulse Resp BP Pulse Ox O2 Del Method 05/25/24 20:35 36.8 C 82 16 114/67 97 Room Air Resident Activity Tracking Resident Involvement: Resident Care Provided Care Provided: Adult Hospital Medicine
--- NOTE | 2024-05-27 07:55 | Hospitalist Progress Note ---
Date of Service May 27, 2024 Assessment & Plan (1) Agitation: Plan: Pt is a 18 yo male with PMH of autism spectrum disorder, PTSD, IDD, and seizure disorder presenting to the hospital d/t aggressive behavior at his new living facility. He was discharged from [facility], after a prolonged stay, to [facility]. Pt previously living with foster parents who are no longer able to care for him at their home. ASD/IDD with associated agitation/combativeness Medication regimen: Risperdal 2 mg BID, melatonin 3 mg HS, guanfacine 2 mg BID. Optimize sleep wake schedule. Encourage play/things the patient enjoys. Appreciate psych recs. - if keeping past 30 days, will need to extend duration of current medication orders In case of behavioral emergency: last required 05/25/24 13:00 1. Zyprexa 2.5mg PO or (5mg IM if necessary) (24 hr max of 20 mg - if IM given, obtain EKG) 2. Thorazine 12.5mg PO or (25mg IM if necessary) (24 hr max of 50mg) (2) Seizure disorder: Plan: Continue home meds; carbamazepine 400mg BID, clobazam 5mg HS. No current seizure like activity (3) Combative behavior: (4) Intellectual disability: Plan Code status: full DVT ppx: low risk, ambulatory FENGI: regular, safe tray Dispo: long-term residential treatment facility required, awaiting placement Admission and Anticipated Discharge Date Admission Date: April 28, 2024 Supervising Physician Co-Signing Physician Notes Attending attestation Pt seen and examined in concert with Dr. Matthews. In agreement with the documented findings as noted in the resident documentation with any exceptions or additions as noted here. Resting comfortably in bed without acute complaint, though detailed history is unavailable at time of evaluation, chronically. On examination,. S1/S2 nl RRR no MCG. CTAB. Abd NT/ND BS+ve. VS as noted. ASD/IDD with history of agitation - continue risperidone, melatonin, guanfacine. PRN orders for zyprexa and thorazine available but no need at present. Else see resident documentation as noted. Mauri Montes De Oca was seen and evaluated at bedside this AM, appearing well and playin g [employer]craft on his iPad during encounter. Slept most of the day yesterday 05/26/24, no acute events or agitation. Not very vocal as he was focused on his game, but said "can I throw it?" while attempting to grab stethoscope, quickly resumed to playing on iPad. Not currently agitated but seems to excite easily. Review of Systems Review of Systems: no fevers, body aches, chills Physical Exam Physical Exam: Gen: well appearing patient in NAD HEENT: NC/AT, no apparent obstruction Resp: clear to auscultation b/l, no increased work of breathing, no wheeze/rales/rhonchi CV: RRR, m/r/g Abd: soft, non-distended MSK: no obvious deformities, strength intact Skin: no rashes or bruising Neuro: no focal deficits Psych: appropriate mood and affect Results & Data Results & Data Vital Signs (Past 12 Hours) Vital Signs Temp Pulse Resp BP Pulse Ox O2 Del Method 05/27/24 07:45 36.7 C 75 18 123/76 98 Room Air Resident Activity Tracking Resident Involvement: Resident Care Provided Care Provided: Adult Hospital Medicine
[2024-05-27] MEDS ORDERED: ONDANSETRON INJ 2 MG/ML 2 ML VIAL IV PRN (19:06)
[2024-05-27] MEDS: guanFACINE HCL 1 MG TAB PO SCH (20:13)
[2024-05-27] MEDS: risperiDONE 2 MG TABLET PO SCH (20:13)
[2024-05-27] MEDS: carBAMazepine 100 MG CHEW TAB PO SCH (20:14)
--- NOTE | 2024-05-28 06:37 | Hospitalist Progress Note ---
Date of Service May 28, 2024 Assessment & Plan (1) Agitation: Plan: Pt is a 18 yo male with PMH of autism spectrum disorder, PTSD, IDD, and seizure disorder presenting to the hospital d/t aggressive behavior at his new living facility. He was discharged from [facility], after a prolonged stay, to [facility]. Pt previously living with foster parents who are no longer able to care for him at their home. ASD/IDD with associated agitation/combativeness Medication regimen: Risperdal 2 mg BID, melatonin 3 mg HS, guanfacine 2 mg BID. Optimize sleep wake schedule. Encourage play/things the patient enjoys. Appreciate psych recs. - if keeping past 30 days, will need to extend duration of current medication orders In case of behavioral emergency: last required 05/25/24 13:00 1. Zyprexa 2.5mg PO or (5mg IM if necessary) (24 hr max of 20 mg - if IM given, obtain EKG) 2. Thorazine 12.5mg PO or (25mg IM if necessary) (24 hr max of 50mg) (2) Seizure disorder: Plan: Continue home meds; carbamazepine 400mg BID, clobazam 5mg HS. No current seizure like activity (3) Combative behavior: (4) Intellectual disability: Plan Code status: full DVT ppx: low risk, ambulatory FENGI: regular, safe tray Dispo: long-term residential treatment facility required, awaiting placement Admission and Anticipated Discharge Date Admission Date: April 28, 2024 Supervising Physician Co-Signing Physician Notes Attending attestation Pt seen and examined in concert with Dr. Matthews. In agreement with the documented findings as noted in the resident documentation with any exceptions or additions as noted here. Resting comfortably in bed without acute complaint, though detailed history is unavailable at time of evaluation, chronically. On examination,. S1/S2 nl RRR no MCG. CTAB. Abd NT/ND BS+ve. VS as noted. ASD/IDD with history of agitation - continue risperidone, melatonin, guanfacine. PRN orders for zyprexa and thorazine available but no need at present. Else see resident documentation as noted. Mauri Montes De Oca was seen and evaluated at bedside this AM, appearing well and in no acute distress. No acute events overnight, no agitation per report. Was walking around room on encounter, amenable to sitting at edge of bed for examination. Again asked if he could take and throw stethoscope, gently redirected with success. Review of Systems Review of Systems: no fevers, body aches, chills Physical Exam Physical Exam: Gen: well appearing patient in NAD HEENT: NC/AT, no apparent obstruction Resp: clear to auscultation b/l, no increased work of breathing, no wheeze/rales/rhonchi CV: RRR, m/r/g Abd: soft, non-distended MSK: no obvious deformities, strength intact Skin: no rashes or bruising Neuro: no focal deficits Psych: appropriate mood and affect Results & Data Results & Data Vital Signs (Past 12 Hours) Vital Signs Temp Pulse Resp BP Pulse Ox O2 Del Method 05/27/24 19:45 36.3 C L 90 16 128/88 99 Room Air Resident Activity Tracking Resident Involvement: Resident Care Provided Care Provided: Adult Hospital Medicine
--- NOTE | 2024-05-29 07:43 | Hospitalist Progress Note ---
Date of Service May 29, 2024 Assessment & Plan (1) Agitation: Plan: Pt is a 18 yo male with PMH of autism spectrum disorder, PTSD, IDD, and seizure disorder presenting to the hospital d/t aggressive behavior at his new living facility. He was discharged from [facility], after a prolonged stay, to [facility]. Pt previously living with foster parents who are no longer able to care for him at their home. ASD/IDD with associated agitation/combativeness Medication regimen: Risperdal 2 mg BID, melatonin 3 mg HS, guanfacine 2 mg BID. Optimize sleep wake schedule. Encourage play/things the patient enjoys. Appreciate psych recs. - extended current medication orders since beyond 30 days In case of behavioral emergency: last required 05/25/24 13:00 1. Zyprexa 2.5mg PO or (5mg IM if necessary) (24 hr max of 20 mg - if IM given, obtain EKG) 2. Thorazine 12.5mg PO or (25mg IM if necessary) (24 hr max of 50mg) (2) Seizure disorder: Plan: Continue home meds; carbamazepine 400mg BID, clobazam 5mg HS. No current seizure like activity (3) Combative behavior: (4) Intellectual disability: Plan Code status: full DVT ppx: low risk, ambulatory FENGI: regular, safe tray Dispo: long-term residential treatment facility required, awaiting placement Admission and Anticipated Discharge Date Admission Date: April 28, 2024 Supervising Physician Co-Signing Physician Notes Attending attestation Pt seen and examined in concert with Dr. Matthews. In agreement with the documented findings as noted in the resident documentation with any exceptions or additions as noted here. Resting comfortably in bed without acute complaint, though detailed history is unavailable at time of evaluation, chronically. On examination,. S1/S2 nl RRR no MCG. CTAB. Abd NT/ND BS+ve. VS as noted. ASD/IDD with history of agitation - minimize vital signs and other nighttime disruptions in effort to improve sleep timing. Continue risperidone, melatonin, guanfacine. PRN orders for zyprexa and thorazine available but no need at present. Else see resident documentation as noted. Subjective Christopher was seen and evaluated at bedside this AM, appearing a bit tired but relaxed and in no acute distress. No acute events overnight, no agitation per report. Lying in bed on encounter, amenable to sitting up for examination. Again asked if he could take and throw stethoscope, gently redirected with success. Review of Systems Review of Systems: no fevers, body aches, chills Physical Exam Physical Exam: Gen: well appearing patient in NAD HEENT: NC/AT, no apparent obstruction Resp: clear to auscultation b/l, no increased work of breathing, no wheeze/rales/rhonchi CV: RRR, m/r/g Abd: soft, non-distended MSK: no obvious deformities, strength intact Skin: no rashes or bruising Neuro: no focal deficits Psych: appropriate mood and affect Results & Data Results & Data Vital Signs (Past 12 Hours) Vital Signs Temp Pulse Resp BP Pulse Ox O2 Del Method 05/29/24 07:14 36.3 C L 70 16 111/58 L 98 Room Air 05/28/24 23:10 36.6 C 68 18 118/70 94 Room Air Resident Activity Tracking Resident Involvement: Resident Care Provided Care Provided: Adult Hospital Medicine
[2024-05-29] MEDS ORDERED: ACETAMINOPHEN 325 MG TAB PO PRN (13:08)
[2024-05-29] MEDS: MELATONIN 3 MG TAB PO PRN (20:09)
--- NOTE | 2024-05-30 08:00 | Hospitalist Progress Note ---
Date of Service May 30, 2024 Assessment & Plan (1) Agitation: Plan: Pt is a 18 yo male with PMH of autism spectrum disorder, PTSD, IDD, and seizure disorder presenting to the hospital d/t aggressive behavior at his new living facility. He was discharged from [facility], after a prolonged stay, to [facility]. Pt previously living with foster parents who are no longer able to care for him at their home. ASD/IDD with associated agitation/combativeness Medication regimen: Risperdal 2 mg BID, melatonin 3 mg HS, guanfacine 2 mg BID. Optimize sleep wake schedule. Encourage play/things the patient enjoys. Appreciate psych recs. - extended current medication orders since beyond 30 days from admission In case of behavioral emergency: last required 05/25/24 13:00 1. Zyprexa 2.5mg PO or (5mg IM if necessary) (24 hr max of 20 mg - if IM given, obtain EKG) 2. Thorazine 12.5mg PO or (25mg IM if necessary) (24 hr max of 50mg) (2) Seizure disorder: Plan: Continue home meds; carbamazepine 400mg BID, clobazam 5mg HS. No current seizure like activity (3) Combative behavior: (4) Intellectual disability: Plan Code status: full DVT ppx: low risk, ambulatory FENGI: regular, safe tray Dispo: long-term residential treatment facility required, awaiting placement Admission and Anticipated Discharge Date Admission Date: April 28, 2024 Supervising Physician Co-Signing Physician Notes Attending attestation Pt seen and examined in concert with Dr. Matthews. In agreement with the documented findings as noted in the resident documentation with any exceptions or additions as noted here. Resting comfortably in bed without acute complaint, detailed history is unavailable at time of evaluation, chronically. On examination,. S1/S2 nl RRR no MCG. CTAB. Abd NT/ND BS+ve. VS as noted. ASD/IDD with history of agitation - minimize vital signs and other nighttime disruptions in effort to improve sleep timing. Continue risperidone, melatonin, guanfacine. PRN orders for zyprexa and thorazine available but no need at present. Else see resident documentation as noted. Mauri Montes De Oca was seen and evaluated at bedside this AM, lying in his bed on his side playing minecraft. No acute events overnight, no agitation per report. States he is feeling "good" this morning, reports he slept well, and replied "no dreams" when asked if he had any dreams. Amenable to sitting up for examination. Again asked if he could take and throw stethoscope again, gently redirected with success. Review of Systems Review of Systems: no fevers, body aches, chills Physical Exam Physical Exam: Gen: well appearing patient in NAD HEENT: NC/AT, no apparent obstruction Resp: clear to auscultation b/l, no increased work of breathing, no wheeze/rales/rhonchi CV: RRR, m/r/g Abd: soft, non-distended MSK: no obvious deformities, strength intact Skin: no rashes or bruising Neuro: no focal deficits Psych: appropriate mood and affect Results & Data Results & Data Vital Signs (Past 12 Hours) Vital Signs Temp Pulse Resp BP Pulse Ox O2 Del Method 05/29/24 20:06 36.5 C 99 H 16 118/76 98 Room Air Resident Activity Tracking Resident Involvement: Resident Care Provided Care Provided: Adult Hospital Medicine
[2024-05-30] MEDS: POLYETHYLENE (MIRALAX) 17 GM PACK PO SCH (09:47)
--- NOTE | 2024-05-31 07:59 | Hospitalist Progress Note ---
Date of Service May 31, 2024 Assessment & Plan (1) Agitation: Plan: Pt is a 18 yo male with PMH of autism spectrum disorder, PTSD, IDD, and seizure disorder presenting to the hospital d/t aggressive behavior at his new living facility. He was discharged from [facility], after a prolonged stay, to [facility]. Pt previously living with foster parents who are no longer able to care for him at their home. ASD/IDD with associated agitation/combativeness Medication regimen: Risperdal 2 mg BID, melatonin 3 mg HS, guanfacine 2 mg BID. Optimize sleep wake schedule. Encourage play/things the patient enjoys. Appreciate psych recs. - extended current medication orders since beyond 30 days from admission In case of behavioral emergency: last required 05/25/24 13:00 1. Zyprexa 2.5mg PO or (5mg IM if necessary) (24 hr max of 20 mg - if IM given, obtain EKG) 2. Thorazine 12.5mg PO or (25mg IM if necessary) (24 hr max of 50mg) (2) Seizure disorder: Plan: Continue home meds; carbamazepine 400mg BID, clobazam 5mg HS. No current seizure like activity (3) Combative behavior: (4) Intellectual disability: Plan Code status: full DVT ppx: low risk, ambulatory FENGI: regular, safe tray Dispo: long-term residential treatment facility required, awaiting placement Admission and Anticipated Discharge Date Admission Date: April 28, 2024 Supervising Physician Co-Signing Physician Notes Attending attestation Pt seen and examined in concert with Dr. Matthews. In agreement with the documented findings as noted in the resident documentation with any exceptions or additions as noted here. Resting comfortably in bed without acute complaint, detailed history is unavailable at time of evaluation, chronically. On examination,. S1/S2 nl RRR no MCG. CTAB. Abd NT/ND BS+ve. VS as noted. ASD/IDD with history of agitation - minimize vital signs and other nighttime disruptions in effort to improve sleep timing. Continue risperidone, melatonin, guanfacine. PRN orders for zyprexa and thorazine available but no need at present. Else see resident documentation as noted. Mauri Montes De Oca was seen and evaluated at bedside this AM, in no distress, playing Minecraft. Overnight, he apparent tore up one of his blankets. Otherwise no agitation and did not require prns. Was amenable to having heart and lungs listened to. Denies any pain or discomfort at this time. Review of Systems Review of Systems: no fevers, body aches, chills Physical Exam Physical Exam: Gen: well appearing patient in NAD HEENT: NC/AT, no apparent obstruction Resp: clear to auscultation b/l, no increased work of breathing, no wheeze/rales/rhonchi CV: RRR, m/r/g Abd: soft, non-distended MSK: no obvious deformities, strength intact Skin: no rashes or bruising Neuro: no focal deficits Psych: appropriate mood and affect Results & Data Results & Data Vital Signs (Past 12 Hours) Vital Signs Temp Pulse Resp BP Pulse Ox O2 Del Method 05/30/24 20:30 36.5 C 82 16 120/70 97 Room Air Resident Activity Tracking Resident Involvement: Resident Care Provided Care Provided: Adult Hospital Medicine
--- NOTE | 2024-06-01 07:14 | Hospitalist Progress Note ---
Date of Service June 01, 2024 Assessment & Plan (1) Agitation: Plan: Pt is a 18 yo male with PMH of autism spectrum disorder, PTSD, IDD, and seizure disorder presenting to the hospital d/t aggressive behavior at his new living facility. He was discharged from [facility], after a prolonged stay, to [facility]. Pt previously living with foster parents who are no longer able to care for him at their home. ASD/IDD with associated agitation/combativeness Medication regimen: Risperdal 2 mg BID, melatonin 3 mg HS, guanfacine 2 mg BID. Optimize sleep wake schedule. Encourage play/things the patient enjoys. Appreciate psych recs. - extended current medication orders since beyond 30 days from admission In case of behavioral emergency: last required 05/25/24 13:00 1. Zyprexa 2.5mg PO or (5mg IM if necessary) (24 hr max of 20 mg - if IM given, obtain EKG) 2. Thorazine 12.5mg PO or (25mg IM if necessary) (24 hr max of 50mg) (2) Seizure disorder: Plan: Continue home meds; carbamazepine 400mg BID, clobazam 5mg HS. No current seizure like activity (3) Combative behavior: (4) Intellectual disability: Plan Code status: full DVT ppx: low risk, ambulatory FENGI: regular, safe tray Dispo: long-term residential treatment facility required, awaiting placement Admission and Anticipated Discharge Date Admission Date: April 28, 2024 Supervising Physician Co-Signing Physician Notes I personally examined the patient and verified blackwell points of history and exam, discussed case, and agree with decision making and plan documented by Dr. Matthews. Patient took shower today. Denies any needs or pain. Awaiting placement. Mauri Montes De Oca was seen and evaluated at bedside this AM, in no distress, playing Minecraft. Overnight no agitation and did not require prns. Had just showered upon encounter. Was amenable to having heart and lungs listened to. Denies any pain or discomfort at this time. Review of Systems Review of Systems: no fevers, body aches, chills Physical Exam Physical Exam: Gen: well appearing patient in NAD HEENT: NC/AT, no apparent obstruction Resp: clear to auscultation b/l, no increased work of breathing, no wheeze/rales/rhonchi CV: RRR, m/r/g Abd: soft, non-distended MSK: no obvious deformities, strength intact Skin: no rashes or bruising Neuro: no focal deficits Psych: appropriate mood and affect Results & Data Results & Data Vital Signs (Past 12 Hours) Vital Signs Temp Pulse Resp BP Pulse Ox O2 Del Method 05/31/24 20:13 36.8 C 76 16 114/74 97 Room Air Resident Activity Tracking Resident Involvement: Resident Care Provided Care Provided: Adult Hospital Medicine
--- NOTE | 2024-06-02 07:31 | Hospitalist Progress Note ---
Date of Service June 02, 2024 Assessment & Plan (1) Agitation: Plan: Pt is a 18 yo male with PMH of autism spectrum disorder, PTSD, IDD, and seizure disorder presenting to the hospital d/t aggressive behavior at his new living facility. He was discharged from [facility], after a prolonged stay, to [facility]. Pt previously living with foster parents who are no longer able to care for him at their home. ASD/IDD with associated agitation/combativeness Medication regimen: Risperdal 2 mg BID, melatonin 3 mg HS, guanfacine 2 mg BID. Optimize sleep wake schedule. Encourage play/things the patient enjoys. Appreciate psych recs. - extended current medication orders since beyond 30 days from admission In case of behavioral emergency: last required 05/25/24 13:00 1. Zyprexa 2.5mg PO or (5mg IM if necessary) (24 hr max of 20 mg - if IM given, obtain EKG) 2. Thorazine 12.5mg PO or (25mg IM if necessary) (24 hr max of 50mg) (2) Seizure disorder: Plan: Continue home meds; carbamazepine 400mg BID, clobazam 5mg HS. No current seizure like activity (3) Combative behavior: (4) Intellectual disability: Plan Code status: full DVT ppx: low risk, ambulatory FENGI: regular, safe tray Dispo: long-term residential treatment facility required, awaiting placement Admission and Anticipated Discharge Date Admission Date: April 28, 2024 Supervising Physician Co-Signing Physician Notes I personally examined the patient and verified all blackwell points of history and exam, discussed case, and agree with decision making with Dr Matthews no issues/needs identified. sitting in bed. Vitals noted, in general he is sitting in bed no distress. Breathing unlabored no accessory muscle use good effort. Skin without rashes pallor or icterus. Neuro without focal deficits. Autism with behavioral disturbances continues to do well overall. continue current care. placement pending. Mauri Montes De Oca was seen and evaluated at bedside this AM, in no distress, playing Minecraft as usual. Overnight no agitation and did not require prns. States "good" when asked how he's feeling today as well as how he slept last night. Was amenable to having heart and lungs listened to, he asked if he could throw stethoscope, gently redirected. Review of Systems Review of Systems: no fevers, body aches, chills Physical Exam Physical Exam: Gen: well appearing patient in NAD HEENT: NC/AT, no apparent obstruction Resp: clear to auscultation b/l, no increased work of breathing, no wheeze/rales/rhonchi CV: RRR, +s1/s2, no m/r/g Abd: soft, non-distended MSK: no obvious deformities, strength intact Skin: no rashes or bruising Neuro: no focal deficits Psych: appropriate mood and affect Results & Data Results & Data Vital Signs (Past 12 Hours) Vital Signs Temp Pulse Resp BP Pulse Ox O2 Del Method 06/01/24 22:02 36.5 C 86 18 102/61 97 Room Air Resident Activity Tracking Resident Involvement: Resident Care Provided Care Provided: Adult Hospital Medicine
--- NOTE | 2024-06-02 17:16 | Billing Data ---
Date of Service June 02, 2024 Coding Level of Care Code 47540 SUB INP/OBS CARE
--- NOTE | 2024-06-02 17:17 | Billing Data ---
Date of Service June 02, 2024 Coding Level of Care Code 36328 SUB INP/OBS CARE
[2024-06-02] MEDS ORDERED: CLOBAZAM 5 MG PO SCH (21:00)
--- NOTE | 2024-06-03 07:13 | Hospitalist Progress Note ---
Date of Service June 03, 2024 Assessment & Plan (1) Agitation: Plan: Pt is a 18 yo male with PMH of autism spectrum disorder, PTSD, IDD, and seizure disorder presenting to the hospital d/t aggressive behavior at his new living facility. He was discharged from [facility], after a prolonged stay, to [facility]. Pt previously living with foster parents who are no longer able to care for him at their home. ASD/IDD with associated agitation/combativeness Medication regimen: Risperdal 2 mg BID, melatonin 3 mg HS, guanfacine 2 mg BID. Optimize sleep wake schedule. Encourage play/things the patient enjoys. Appreciate psych recs. - extended current medication orders since beyond 30 days from admission In case of behavioral emergency: last required 05/25/24 13:00 1. Zyprexa 2.5mg PO or (5mg IM if necessary) (24 hr max of 20 mg - if IM given, obtain EKG) 2. Thorazine 12.5mg PO or (25mg IM if necessary) (24 hr max of 50mg) (2) Seizure disorder: Plan: Continue home meds; carbamazepine 400mg BID, clobazam 5mg HS. No current seizure like activity (3) Combative behavior: (4) Intellectual disability: Plan Code status: full DVT ppx: low risk, ambulatory FENGI: regular, safe tray Dispo: long-term residential treatment facility required, awaiting placement Admission and Anticipated Discharge Date Admission Date: April 28, 2024 Supervising Physician Co-Signing Physician Notes I personally examined the patient and verified all blackwell points of history and exam, discussed case, and agree with decision making with Dr Matthews no issues/needs identified. again sitting in bed. Vitals noted, in general he is sitting in bed no distress. Breathing unlabored no accessory muscle use good effort. Skin without rashes pallor or icterus. Neuro without focal deficits. Autism with behavioral disturbances continues to do well overall. continue current care/supportive care/activities to do. placement pending. Mauri Montes De Oca was seen and evaluated at bedside this AM, in no distress, playing Minecraft as usual. Overnight no agitation and did not require prns. States "good" when asked how he's feeling today as well as how he slept last night. Did not answer whether he had any dreams. Was amenable to having heart and lungs listened to, he asked if he could throw stethoscope, grabbed at it but didn't take it. Able to be gently redirected. Review of Systems Review of Systems: no fevers, body aches, chills Physical Exam Physical Exam: Gen: well appearing patient in NAD HEENT: NC/AT, no apparent obstruction Resp: clear to auscultation b/l, no increased work of breathing, no wheeze/rales/rhonchi CV: RRR, +s1/s2, no m/r/g Abd: soft, non-distended MSK: no obvious deformities, strength intact Skin: no rashes or bruising Neuro: no focal deficits Psych: appropriate mood and affect Resident Activity Tracking Resident Involvement: Resident Care Provided Care Provided: Adult [facility] Medicine
--- NOTE | 2024-06-03 16:48 | Billing Data ---
Date of Service June 03, 2024 Coding Level of Care Code 89550 SUB INP/OBS CARE
--- NOTE | 2024-06-04 07:32 | Hospitalist Progress Note ---
Date of Service June 04, 2024 Assessment & Plan (1) Agitation: Plan: Pt is a 18 yo male with PMH of autism spectrum disorder, PTSD, IDD, and seizure disorder presenting to the hospital d/t aggressive behavior at his new living facility. He was discharged from [facility], after a prolonged stay, to [facility]. Pt previously living with foster parents who are no longer able to care for him at their home. ASD/IDD with associated agitation/combativeness Medication regimen: Risperdal 2 mg BID, melatonin 3 mg HS, guanfacine 2 mg BID. Optimize sleep wake schedule. Encourage play/things the patient enjoys. Appreciate psych recs. - extended current medication orders since beyond 30 days from admission In case of behavioral emergency: last required 05/25/24 13:00 1. Zyprexa 2.5mg PO or (5mg IM if necessary) (24 hr max of 20 mg - if IM given, obtain EKG) 2. Thorazine 12.5mg PO or (25mg IM if necessary) (24 hr max of 50mg) (2) Seizure disorder: Plan: Continue home meds; carbamazepine 400mg BID, clobazam 5mg HS. No current seizure like activity (3) Combative behavior: (4) Intellectual disability: Plan Code status: full DVT ppx: low risk, ambulatory FENGI: regular, safe tray Dispo: long-term residential treatment facility required, awaiting placement Admission and Anticipated Discharge Date Admission Date: April 28, 2024 Supervising Physician Co-Signing Physician Notes I personally examined the patient and verified all blackwell points of history and exam, discussed case, and agree with decision making with Dr Matthews no issues/needs identified. playing. Vitals noted, in general he is sitting in bed no distress. Breathing unlabored no accessory muscle use good effort. Skin without rashes pallor or icterus. Neuro without focal deficits. Autism with behavioral disturbances continues to do well overall. continue current care/supportive care/activities to do. placement pending. appears will be facility in [facility]. Mauri Montes De Oca was seen and evaluated at bedside this AM, resting in his bed under a blanket on encounter but peaked his head out upon greeting him. Overnight no agitation and did not require prns. States "good" when asked how he's feeling today as well as how he slept last night. Was amenable to having heart and lungs listened to, sat up calmly, did not grab stethoscope or ask to throw it today. Review of Systems Review of Systems: no fevers, body aches, chills Physical Exam Physical Exam: Gen: well appearing patient in NAD HEENT: NC/AT, no apparent obstruction Resp: clear to auscultation b/l, no increased work of breathing, no wheeze/rales/rhonchi CV: RRR, +s1/s2, no m/r/g Abd: soft, non-distended MSK: no obvious deformities, strength intact Skin: no rashes or bruising Neuro: no focal deficits Psych: appropriate mood and affect Resident Activity Tracking Resident Involvement: Resident Care Provided Care Provided: Adult Hospital Medicine
--- NOTE | 2024-06-04 13:25 | Billing Data ---
Date of Service June 04, 2024 Coding Level of Care Code 06609 SUB INP/OBS CARE
--- NOTE | 2024-06-05 07:45 | Hospitalist Progress Note ---
Date of Service June 05, 2024 Assessment & Plan (1) Agitation: Plan: Pt is a 18 yo male with PMH of autism spectrum disorder, PTSD, IDD, and seizure disorder presenting to the hospital d/t aggressive behavior at his new living facility. He was discharged from [facility], after a prolonged stay, to [facility]. Pt previously living with foster parents who are no longer able to care for him at their home. ASD/IDD with associated agitation/combativeness Medication regimen: Risperdal 2 mg BID, melatonin 3 mg HS, guanfacine 2 mg BID. Optimize sleep wake schedule. Encourage play/things the patient enjoys. Appreciate psych recs. - extended current medication orders since beyond 30 days from admission In case of behavioral emergency: last required 05/25/24 13:00 1. Zyprexa 2.5mg PO or (5mg IM if necessary) (24 hr max of 20 mg - if IM given, obtain EKG) 2. Thorazine 12.5mg PO or (25mg IM if necessary) (24 hr max of 50mg) (2) Seizure disorder: Plan: Continue home meds; carbamazepine 400mg BID, clobazam 5mg HS. No current seizure like activity (3) Combative behavior: (4) Intellectual disability: Plan Code status: full DVT ppx: low risk, ambulatory FENGI: regular, safe tray Dispo: long-term residential treatment facility required, awaiting placement Admission and Anticipated Discharge Date Admission Date: April 28, 2024 Supervising Physician Co-Signing Physician Notes I personally examined the patient and verified all blackwell points of history and exam, discussed case, and agree with decision making with Dr Matthews no issues/needs identified. playing minecraft. Vitals noted, in general he is sitting in bed no distress. Breathing unlabored no accessory muscle use good effort. Skin without rashes pallor or icterus. Neuro without focal deficits. Autism with behavioral disturbances no need for changes today. continue current care/supportive care/activities to do. placement pending. appears will be facility in [facility]. Mauri Montes De Oca was seen and evaluated at bedside this AM, playing minecraft. Overnight no agitation and did not require prns, but stayed up until around 4am. States "good" when asked how he's feeling today as well as how he slept last night. Was amenable to having heart and lungs listened to. Review of Systems Review of Systems: no fevers, body aches, chills Physical Exam Physical Exam: Gen: well appearing patient in NAD HEENT: NC/AT, no apparent obstruction Resp: clear to auscultation b/l, no increased work of breathing, no whe matty/rales/rhonchi CV: RRR, +s1/s2, no m/r/g Abd: soft, non-distended MSK: no obvious deformities, strength intact Skin: no rashes or bruising Neuro: no focal deficits Psych: appropriate mood and affect Results & Data Results & Data Vital Signs (Past 12 Hours) Vital Signs Temp Pulse Pulse Resp BP BP Pulse Ox 06/05/24 07:10 36.4 C L 95 H 14 117/72 99 06/04/24 20:38 36.8 C 75 16 136/76 100 O2 Del Method 06/05/24 07:10 Room Air 06/04/24 20:38 Room Air Resident Activity Tracking Resident Involvement: Resident Care Provided Care Provided: Adult Hospital Medicine
--- NOTE | 2024-06-05 13:13 | Billing Data ---
Date of Service June 05, 2024 Coding Level of Care Code 77470 SUB INP/OBS CARE
--- NOTE | 2024-06-06 07:03 | Hospitalist Progress Note ---
Date of Service June 06, 2024 Assessment & Plan (1) Agitation: Plan: Pt is a 18 yo male with PMH of autism spectrum disorder, PTSD, IDD, and seizure disorder presenting to the hospital d/t aggressive behavior at his new living facility. He was discharged from [facility], after a prolonged stay, to [facility]. Pt previously living with foster parents who are no longer able to care for him at their home. Per CM note, will have meeting with Shruti from [facility] 06/06/24 from 9-11am, will discuss scheduling for next week. ASD/IDD with associated agitation/combativeness Medication regimen: Risperdal 2 mg BID, melatonin 3 mg HS, guanfacine 2 mg BID. Optimize sleep wake schedule. Encourage play/things the patient enjoys. Appreciate psych recs. - extended current medication orders since beyond 30 days from admission In case of behavioral emergency: last required 05/25/24 13:00 1. Zyprexa 2.5mg PO or (5mg IM if necessary) (24 hr max of 20 mg - if IM given, obtain EKG) 2. Thorazine 12.5mg PO or (25mg IM if necessary) (24 hr max of 50mg) (2) Seizure disorder: Plan: Continue home meds; carbamazepine 400mg BID, clobazam 5mg HS. No current seizure like activity (3) Combative behavior: (4) Intellectual disability: Plan Code status: full DVT ppx: low risk, ambulatory FENGI: regular, safe tray Dispo: long-term residential treatment facility required, awaiting placement Admission and Anticipated Discharge Date Admission Date: April 28, 2024 Supervising Physician Co-Signing Physician Notes I personally examined the patient and verified all blackwell points of history and exam, discussed case, and agree with decision making with Dr Matthews no issues/needs identified. playing with ice in the bathroom. Vitals noted, in general he is sitting in bed no distress. Breathing unlabored no accessory muscle use good effort. Skin without rashes pallor or icterus. Neuro without focal deficits. Autism with behavioral disturbances no changes today. continue current care/supportive care/activities to do. placement pending. appears will be facility in [facility] - arrangements still being made Subjective Tavon was seen and evaluated at bedside this AM, appearing to be sleeping but woke up to being addressed. Overnight did not require prns, but stayed up a bit late again. States "good" when asked how he's feeling today as well as how he slept last night, responded "yes" to whether he had any dreams, but when asked what about, no response. Was amenable to having heart and lungs listened to, did not ask to throw stethoscope today. Review of Systems Review of Systems: no fevers, body aches, chills Physical Exam Physical Exam: Gen: well appearing patient in NAD HEENT: NC/AT, no apparent obstruction Resp: clear to auscultation b/l, no increased work of breathing, no wheeze/rales/rhonchi CV: RRR, +s1/s2, no m/r/g Abd: soft, non-distended MSK: no obvious deformities, strength intact Skin: no rashes or bruising Neuro: no focal deficits Psych: appropriate mood and affect Resident Activity Tracking Resident Involvement: Resident Care Provided Care Provided: Adult Hospital Medicine
--- NOTE | 2024-06-06 14:14 | Billing Data ---
Date of Service June 06, 2024 Coding Level of Care Code 62366 SUB INP/OBS CARE
--- NOTE | 2024-06-07 06:58 | Hospitalist Progress Note ---
Date of Service June 07, 2024 Assessment & Plan (1) Agitation: Plan: Pt is a 19 yo male with PMH of autism spectrum disorder, PTSD, IDD, and seizure disorder presenting to the hospital d/t aggressive behavior at his new living facility. He was discharged from [facility], after a prolonged stay, to [facility]. Pt previously living with foster parents who are no longer able to care for him at their home. Per CM note: [facility] is working on moving forward with [facility] for residential placement in [place]. [facility] and [facility] will meet with Avelino on 06/12 at 1100. The behavioral human resources support specialist from [facility] will collaborate with the provider that [facility] contracts with. [facility] would like to have staff from [facility] meet with Avelino in person before he moves there. Plan is to have two behavioral support specialists write up a Behavior Plan for the home's staff and then [facility] will need to train all the staff on the plan before he moves. ASD/IDD with associated agitation/combativeness Medication regimen: Risperdal 2 mg BID, melatonin 3 mg HS, guanfacine 2 mg BID. Optimize sleep wake schedule. Encourage play/things the patient enjoys. Appreciate psych recs. - extended current medication orders since beyond 30 days from admission In case of behavioral emergency: last required 05/25/24 13:00 1. Zyprexa 2.5mg PO or (5mg IM if necessary) (24 hr max of 20 mg - if IM given, obtain EKG) 2. Thorazine 12.5mg PO or (25mg IM if necessary) (24 hr max of 50mg) (2) Seizure disorder: Plan: Continue home meds; carbamazepine 400mg BID, clobazam 5mg HS. No current seizure like activity (3) Combative behavior: (4) Intellectual disability: Plan Code status: full DVT ppx: low risk, ambulatory FENGI: regular, safe tray Dispo: long-term residential treatment facility required, awaiting placement Admission and Anticipated Discharge Date Admission Date: April 28, 2024 Supervising Physician Co-Signing Physician Notes I personally examined the patient and verified all blackwell points of history and exam, discussed case, and agree with decision making with Dr Parsons no issues/needs identified. minecraft today. Vitals noted, in general he is sitting in bed no distress. Breathing unlabored no accessory muscle use good effort. Skin without rashes pallor or icterus. Neuro without focal deficits. Autism with behavioral disturbances no changes today. wished pt happy birthday. continue current care/supportive care/activities to do. placement pending. appears will be facility in [facility] - arrangements still being made Subjective Pt is a 19 yo male who was admitted for agitation at his new living facility. There were no acute events over night. This morning, Pt is sitting at [employer] playing video games on a tablet. Pt is moderately distrated by his game and only intermittently answering questions. He states he is feeling good and denies any pain. Per 1:1 sitter, events noted this morning. Review of Systems Review of Systems: As per HPI Physical Exam Physical Exam: Gen: well appearing patient in NAD HEENT: NC/AT, no apparent obstruction Resp: clear to auscultation b/l, no increased work of breathing, no wheeze/rales/rhonchi CV: RRR, +s1/s2, no m/r/g Abd: soft, non-distended MSK: no obvious deformities, strength intact Skin: no rashes or bruising Neuro: no focal deficits Psych: appropriate mood and affect Resident Activity Tracking Resident Involvement: Resident Care Provided Care Provided: Adult Hospital Medicine
--- NOTE | 2024-06-07 10:46 | Billing Data ---
Date of Service June 07, 2024 Coding Level of Care Code 60048 SUB INP/OBS CARE
--- NOTE | 2024-06-08 07:04 | Hospitalist Progress Note ---
Date of Service June 08, 2024 Assessment & Plan (1) Agitation: Plan: (2) Seizure disorder: Plan: Continue home meds; carbamazepine 400mg BID, clobazam 5mg HS. No current seizure like activity (3) Combative behavior: (4) Intellectual disability: Plan Pt is a 19 yo male with PMH of autism spectrum disorder, PTSD, IDD, and seizure disorder presenting to the hospital d/t aggressive behavior at his new living facility. He was discharged from [facility], after a prolonged stay, to [facility]. Pt previously living with foster parents who are no longer able to care for him at their home. Per CM note on 06/06/24: [facility] is working on moving forward with [facility] for residential placement in [place]. [facility] and [facility] Support Services will meet with Avelino on 06/12 at 1100. The behavioral direct support staff member from [facility] will collaborate with the provider that [facility] contracts with. [facility] would like to have staff from [facility] meet with Avelino in person before he moves there. Plan is to have two behavioral support specialists write up a Behavior Plan for the home's staff and then [facility] will need to train all the staff on the plan before he moves. ASD/IDD with associated agitation/combativeness Medication regimen: Risperdal 2 mg BID, melatonin 3 mg HS, guanfacine 2 mg BID. Optimize sleep wake schedule. Encourage play/things the patient enjoys. Appreciate psych recs. - extended current medication orders since beyond 30 days from admission In case of behavioral emergency: last required 05/25/24 13:00 1. Zyprexa 2.5mg PO or (5mg IM if necessary) (24 hr max of 20 mg - if IM given, obtain EKG) 2. Thorazine 12.5mg PO or (25mg IM if necessary) (24 hr max of 50mg) Code status: full DVT ppx: low risk, ambulatory FENGI: regular, safe tray Dispo: long-term residential treatment facility required, awaiting placement Admission and Anticipated Discharge Date Admission Date: April 28, 2024 Supervising Physician Co-Signing Physician Notes I personally examined the patient and verified all blackwell points of history and exam, discussed case, and agree with decision making with Dr Parsons no issues/needs identified. playing quietly on ipad. Vitals noted, in general he is sitting in bed no distress. Breathing unlabored no accessory muscle use good effort. Skin without rashes pallor or icterus. Neuro without focal deficits. Autism with behavioral disturbances continue current care/supportive care/activities to do. placement pending. appears [facility] - arrangements still being made; no need for changes today Subjective Pt is a 19 yo male who was admitted for agitation at his new living facility. There were no acute events over night. This morning, pt is sitting at [employer] playing [employer] on a tablet. Pt is calm and answering yes to questions. Yesterday was his birthday and he was given some gummy candies, which brought a smile to his face when talked about. Pt was cooperative to exam. Pt denies c/o pain, or GI symptoms today Review of Systems Review of Systems: As per HPI Physical Exam Physical Exam: Gen: well appearing patient in NAD HEENT: NC/AT, no apparent obstruction Resp: clear to auscultation b/l, no increased work of breathing, no wheeze/rales/rhonchi CV: RRR, +s1/s2, no m/r/g Abd: soft, non-distended MSK: no obvious deformities, strength intact Skin: no rashes or bruising Neuro: no focal deficits Psych: appropriate mood and affect Resident Activity Tracking Resident Involvement: Resident Care Provided Care Provided: Adult Hospital Medicine
--- NOTE | 2024-06-08 16:58 | Billing Data ---
Date of Service June 08, 2024 Coding Level of Care Code 55705 SUB INP/OBS CARE
--- NOTE | 2024-06-09 08:06 | Hospitalist Progress Note ---
Date of Service June 09, 2024 Assessment & Plan (1) Agitation: Plan: (2) Seizure disorder: Plan: Continue home meds; carbamazepine 400mg BID, clobazam 5mg HS. No current seizure like activity (3) Combative behavior: (4) Intellectual disability: Plan Pt is a 19 yo male with PMH of autism spectrum disorder, PTSD, IDD, and seizure disorder presenting to the hospital d/t aggressive behavior at his new living facility. He was discharged from [facility], after a prolonged stay, to [facility]. Pt previously living with foster parents who are no longer able to care for him at their home. Per CM note on 06/06/24: [facility] is working on moving forward with [facility] for residential placement in [place]. [facility] and [facility] Support Services will meet with Avelino on 06/12 at 1100. The behavioral technical support agent from [facility] will collaborate with the provider that [facility] contracts with. [facility] would like to have staff from [facility] meet with Avelino in person before he moves there. Plan is to have two behavioral support specialists write up a Behavior Plan for the home's staff and then [facility] will need to train all the staff on the plan before he moves. ASD/IDD with associated agitation/combativeness Medication regimen: Risperdal 2 mg BID, melatonin 3 mg HS, guanfacine 2 mg BID. Optimize sleep wake schedule. Encourage play/things the patient enjoys. Appreciate psych recs. - extended current medication orders since beyond 30 days from admission In case of behavioral emergency: last required 05/25/24 13:00 1. Zyprexa 2.5mg PO or (5mg IM if necessary) (24 hr max of 20 mg - if IM given, obtain EKG) 2. Thorazine 12.5mg PO or (25mg IM if necessary) (24 hr max of 50mg) Code status: full DVT ppx: low risk, ambulatory FENGI: regular, safe tray Dispo: long-term residential treatment facility required, awaiting placement Admission and Anticipated Discharge Date Admission Date: April 28, 2024 Supervising Physician Co-Signing Physician Notes I personally examined the patient and verified blackwell points of history and exam, discussed case, and agree with decision making and plan documented by Dr. Jensen. Patient denies pain or needs. Awaiting placement. Subjective Pt is a 19 yo male who was admitted for agitation at his new living facility. There were no acute events over night. This morning, pt was lying in his bed with his face covered by blanket. Talked with Sitter. No agitation/apprehension. No any fresh complains. Review of Systems Review of Systems: As per HPI Physical Exam Physical Exam: Gen: well appearing patient in NAD HEENT: NC/AT, no apparent obstruction Resp: clear to auscultation b/l, no increased work of breathing, no wheeze/rales/rhonchi CV: RRR, +s1/s2, no m/r/g Abd: soft, non-distended MSK: no obvious deformities, strength intact Skin: no rashes or bruising Neuro: no focal deficits Psych: appropriate mood and affect Results & Data Results & Data Vital Signs (Past 12 Hours) Vital Signs Temp Pulse Resp BP Pulse Ox O2 Del Method 06/09/24 07:26 36.7 C 89 19 114/74 97 Room Air
--- NOTE | 2024-06-10 17:42 | Hospitalist Progress Note ---
Date of Service June 10, 2024 Assessment & Plan (1) Agitation: Plan: (2) Seizure disorder: Plan: Continue home meds; carbamazepine 400mg BID, clobazam 5mg HS. No current seizure like activity (3) Combative behavior: (4) Intellectual disability: Plan Pt is a 19 yo male with PMH of autism spectrum disorder, PTSD, IDD, and seizure disorder presenting to the hospital d/t aggressive behavior at his new living facility. He was discharged from [facility], after a prolonged stay, to [facility]. Pt previously living with foster parents who are no longer able to care for him at their home. Per CM note on 06/09/24: A teacher from [employer] [facility] that has worked with Avelino will meet with him this Sunday, Sunday and afternoon. Per CM note on 06/06/24: [facility] is working on moving forward with [facility] for residential placement in [place]. [facility] and [facility] Support Services will meet with Avelino on 06/12 at 1100. The behavioral support analyst from [facility] will collaborate with the provider that [facility] contracts with. [facility] would like to have staff from [facility] meet with Avelino in person before he moves there. Plan is to have two behavioral support specialists write up a Behavior Plan for the home's staff and then [facility] will need to train all the staff on the plan before he moves. ASD/IDD with associated agitation/combativeness Medication regimen: Risperdal 2 mg BID, melatonin 3 mg HS, guanfacine 2 mg BID. Optimize sleep wake schedule. Encourage play/things the patient enjoys. Appreciate psych recs. - extended current medication orders since beyond 30 days from admission In case of behavioral emergency: last required 05/25/24 13:00 1. Zyprexa 2.5mg PO or (5mg IM if necessary) (24 hr max of 20 mg - if IM given, obtain EKG) 2. Thorazine 12.5mg PO or (25mg IM if necessary) (24 hr max of 50mg) Code status: full DVT ppx: low risk, ambulatory FENGI: regular, safe tray Dispo: long-term residential treatment facility required, awaiting placement Admission and Anticipated Discharge Date Admission Date: April 28, 2024 Supervising Physician Co-Signing Physician Notes I personally examined the patient and verified blackwell points of history and exam, discussed case, and agree with decision making and plan documented by Dr. Jensen. Patient denies pain or needs. Smiling a lot today. Awaiting placement. Subjective Pt is a 19 yo male who was admitted for agitation at his new living facility. There were no acute events over night. This morning, pt was walking within the room and was cooperative. Talked with Sitter. No agitation/apprehension. No any fresh complains. Review of Systems Review of Systems: As per HPI Physical Exam Physical Exam: Gen: well appearing patient in NAD HEENT: NC/AT, no apparent obstruction Resp: clear to auscultation b/l, no increased work of breathing, no wheeze/rales/rhonchi CV: RRR, +s1/s2, no m/r/g Abd: soft, non-distended MSK: no obvious deformities, strength intact Skin: no rashes or bruising Neuro: no focal deficits Psych: appropriate mood and affect Results & Data Results & Data Vital Signs (Past 12 Hours) Vital Signs Temp Pulse Resp BP Pulse Ox O2 Del Method 06/10/24 08:48 36.5 C 81 16 125/79 98 Room Air
--- NOTE | 2024-06-11 15:13 | Hospitalist Progress Note ---
Date of Service June 11, 2024 Assessment & Plan (1) Agitation: Plan: (2) Seizure disorder: Plan: Continue home meds; carbamazepine 400mg BID, clobazam 5mg HS. No current seizure like activity (3) Combative behavior: (4) Intellectual disability: Plan Pt is a 19 yo male with PMH of autism spectrum disorder, PTSD, IDD, and seizure disorder presenting to the hospital d/t aggressive behavior at his new living facility. He was discharged from [facility], after a prolonged stay, to [facility]. Pt previously living with foster parents who are no longer able to care for him at their home. Per CM note on 06/09/24: A teacher from [employer] that has worked with Avelino will meet with him this Sunday, Sunday and afternoon. Per CM note on 06/06/24: [facility] is working on moving forward with [facility] for residential placement in [place]. [facility] and [facility] Support Services will meet with Avelino on 06/12 at 1100. The behavioral ground support equipment mechanic from [facility] will collaborate with the provider that [facility] contracts with. [facility] would like to have staff from [facility] meet with Avelino in person before he moves there. Plan is to have two behavioral support specialists write up a Behavior Plan for the home's staff and then [facility] will need to train all the staff on the plan before he moves. ASD/IDD with associated agitation/combativeness Medication regimen: Risperdal 2 mg BID, melatonin 3 mg HS, guanfacine 2 mg BID. Optimize sleep wake schedule. Encourage play/things the patient enjoys. Appreciate psych recs. - extended current medication orders since beyond 30 days from admission In case of behavioral emergency: last required 05/25/24 13:00 1. Zyprexa 2.5mg PO or (5mg IM if necessary) (24 hr max of 20 mg - if IM given, obtain EKG) 2. Thorazine 12.5mg PO or (25mg IM if necessary) (24 hr max of 50mg) Code status: full DVT ppx: low risk, ambulatory FENGI: regular, safe tray Dispo: long-term residential treatment facility required, awaiting placement Admission and Anticipated Discharge Date Admission Date: April 28, 2024 Supervising Physician Co-Signing Physician Notes I personally examined the patient and verified blackwell points of history and exam, discussed case, and agree with decision making and plan documented by Dr. Jensen. Patient denies pain or needs. Awaiting placement. Subjective Pt is a 19 yo male who was admitted for agitation at his new living facility. There were no acute events over night. This morning, pt was walking within the room and was cooperative. Talked with Sitter. No agitation/apprehension. No any fresh complains. Review of Systems Review of Systems: As per HPI Physical Exam Physical Exam: Gen: well appearing patient in NAD HEENT: NC/AT, no apparent obstruction Resp: clear to auscultation b/l, no increased work of breathing, no wheeze/rales/rhonchi CV: RRR, +s1/s2, no m/r/g Abd: soft, non-distended MSK: no obvious deformities, strength intact Skin: no rashes or bruising Neuro: no focal deficits Psych: appropriate mood and affect Results & Data Results & Data Vital Signs (Past 12 Hours) Vital Signs Temp Pulse Resp BP Pulse Ox O2 Del Method 06/11/24 08:19 36.4 C L 66 16 115/64 98 Room Air
--- NOTE | 2024-06-12 08:20 | Hospitalist Progress Note ---
Date of Service June 12, 2024 Assessment & Plan (1) Agitation: Plan: (2) Seizure disorder: Plan: Continue home meds; carbamazepine 400mg BID, clobazam 5mg HS. No current seizure like activity (3) Combative behavior: (4) Intellectual disability: Plan Pt is a 19 yo male with PMH of autism spectrum disorder, PTSD, IDD, and seizure disorder presenting to the hospital d/t aggressive behavior at his new living facility. He was discharged from [facility], after a prolonged stay, to [facility]. Pt previously living with foster parents who are no longer able to care for him at their home. Per CM note on 06/12/24:Rebeca from [facility], Maci from [facility], and Allan from [facility] support met with Avelino late this morning. Maci is the behavioral customer support manager who will collaborate with the provider that the [facility] contracts with. [facility] has been updated that the hospital would like to be able to d/c Avelino by 06/20. Per CM note on 06/09/24: A teacher from [employer] [facility] that has worked with Avelino will meet with him this Sunday, Sunday and afternoon. Per CM note on 06/06/24: [facility] is working on moving forward with [facility] for residential placement in [place]. [facility] and [facility] Support Services will meet with Avelino on 06/12 at 1100. The behavioral customer support manager from [facility] will collaborate with the provider that [facility] contracts with. [facility] would like to have staff from [facility] meet with Avelino in person before he moves there. Plan is to have two behavioral support specialists write up a Behavior Plan for the home's staff and then [facility] will need to train all the staff on the plan before he moves. ASD/IDD with associated agitation/combativeness Medication regimen: Risperdal 2 mg BID, melatonin 3 mg HS, guanfacine 2 mg BID. Optimize sleep wake schedule. Encourage play/things the patient enjoys. Appreciate psych recs. - extended current medication orders since beyond 30 days from admission In case of behavioral emergency: last required 05/25/24 13:00 1. Zyprexa 2.5mg PO or (5mg IM if necessary) (24 hr max of 20 mg - if IM given, obtain EKG) 2. Thorazine 12.5mg PO or (25mg IM if necessary) (24 hr max of 50mg) Code status: full DVT ppx: low risk, ambulatory FENGI: regular, safe tray Dispo: long-term residential treatment facility required, awaiting placement Admission and Anticipated Discharge Date Admission Date: April 28, 2024 Supervising Physician Co-Signing Physician Notes I personally examined the patient and verified blackwell points of history and exam, discussed case, and agree with decision making and plan documented by Dr. Jensen. Patient smiling and eating [employer] on exam today. Patient denies pain or needs. Awaiting placement. Updated family by phone today. Subjective Pt is a 19 yo male who was admitted for agitation at his new living facility. There were no acute events over night. This morning, pt was walking within the room and was cooperative. Talked with Sitter. No agitation/apprehension. No any fresh complains. Review of Systems Review of Systems: As per HPI Physical Exam Physical Exam: Gen: well appearing patient in NAD HEENT: NC/AT, no apparent obstruction Resp: clear to auscultation b/l, no increased work of breathing, no wheeze/rales/rhonchi CV: RRR, +s1/s2, no m/r/g Abd: soft, non-distended MSK: no obvious deformities, strength intact Skin: no rashes or bruising Neuro: no focal deficits Psych: appropriate mood and affect Results & Data Results & Data Vital Signs (Past 12 Hours) Vital Signs Temp Pulse Resp BP Pulse Ox O2 Del Method 06/12/24 07:33 36.5 C 66 14 104/62 98 Room Air
--- NOTE | 2024-06-13 08:47 | Hospitalist Progress Note ---
Date of Service June 13, 2024 Assessment & Plan (1) Agitation: Plan: (2) Seizure disorder: Plan: Continue home meds; carbamazepine 400mg BID, clobazam 5mg HS. No current seizure like activity (3) Combative behavior: (4) Intellectual disability: Plan Pt is a 19 yo male with PMH of autism spectrum disorder, PTSD, IDD, and seizure disorder presenting to the hospital d/t aggressive behavior at his new living facility. He was discharged from [facility], after a prolonged stay, to [facility]. Pt previously living with foster parents who are no longer able to care for him at their home. Per CM note on 06/12/24:Rebeca from [facility], Maci from [facility] Support Services, and Allan from [facility] support met with Avelino late this morning. Maci is the behavioral practice support specialist who will collaborate with the provider that the [facility] contracts with. [facility] has been updated that the hospital would like to be able to d/c Avelino by 06/20. Per CM note on 06/09/24: A teacher from [employer] that has worked with Avelino will meet with him this Sunday, Sunday and afternoon. Per CM note on 06/06/24: [facility] is working on moving forward with [facility] for residential placement in [place]. [facility] and [facility] Support Services will meet with Avelino on 06/12 at 1100. The behavioral practice support specialist from [facility] will collaborate with the provider that [facility] contracts with. [facility] would like to have staff from [facility] meet with Avelino in person before he moves there. Plan is to have two behavioral support specialists write up a Behavior Plan for the home's staff and then [facility] will need to train all the staff on the plan before he moves. ASD/IDD with associated agitation/combativeness Medication regimen: Risperdal 2 mg BID, melatonin 3 mg HS, guanfacine 2 mg BID. Optimize sleep wake schedule. Encourage play/things the patient enjoys. Appreciate psych recs. - extended current medication orders since beyond 30 days from admission In case of behavioral emergency: last required 05/25/24 13:00 1. Zyprexa 2.5mg PO or (5mg IM if necessary) (24 hr max of 20 mg - if IM given, obtain EKG) 2. Thorazine 12.5mg PO or (25mg IM if necessary) (24 hr max of 50mg) Code status: full DVT ppx: low risk, ambulatory FENGI: regular, safe tray Dispo: long-term residential treatment facility required, awaiting placement Admission and Anticipated Discharge Date Admission Date: April 28, 2024 Supervising Physician Co-Signing Physician Notes I also saw the patient and confirmed the clinical history and exam findings. I agree with the impression and plan as noted in the resident documentation. Subjective Tavon Phillips is a 19 yo male with PMHx of autism spectrum disorder, PTSD, IDD, and seizure disorder presenting to the hospital d/t aggressive behavior at his new living facility who was admitted for agitation at his new living facility. He is here for There were no acute events over night. This morning, pt was walking within the room and was cooperative. Talked with Sitter. No agitation/apprehension. No any fresh complains. Review of Systems Review of Systems: As per HPI Physical Exam Physical Exam: Gen: well appearing patient in NAD HEENT: NC/AT, no apparent obstruction Resp: clear to auscultation b/l, no increased work of breathing, no wheeze/rales/rhonchi CV: RRR, +s1/s2, no m/r/g Abd: soft, non-distended MSK: no obvious deformities, strength intact Skin: no rashes or bruising Neuro: no focal deficits Psych: appropriate mood and affect Results & Data Results & Data Vital Signs (Past 12 Hours) Vital Signs Temp Pulse Resp BP Pulse Ox O2 Del Method 06/13/24 07:59 36.5 C 66 16 117/71 97 Room Air
--- NOTE | 2024-06-14 08:44 | Hospitalist Progress Note ---
Date of Service June 14, 2024 Assessment & Plan (1) Agitation: Plan: (2) Seizure disorder: Plan: Continue home meds; carbamazepine 400mg BID, clobazam 5mg HS. No current seizure like activity (3) Combative behavior: (4) Intellectual disability: Plan Pt is a 19 yo male with PMH of autism spectrum disorder, PTSD, IDD, and seizure disorder presenting to the hospital d/t aggressive behavior at his new living facility. He was discharged from [facility], after a prolonged stay, to [facility]. Pt previously living with foster parents who are no longer able to care for him at their home. Per CM note on 06/12/24:Rebeca from [facility], Maci from [facility], and Allan from [facility] support met with Aveilno late this morning. Maci is the behavioral direct support staff member who will collaborate with the provider that the [facility] contracts with. [facility] has been updated that the hospital would like to be able to d/c Avelino by 06/20. Per CM note on 06/09/24: A teacher from [employer] [facility] that has worked with Avelino will meet with him this Sunday, Sunday and afternoon. Per CM note on 06/06/24: [facility] is working on moving forward with [facility] for residential placement in [place]. [facility] and [facility] will meet with Avelino on 06/12 at 1100. The behavioral direct support staff member from [facility] will collaborate with the provider that [facility] contracts with. [facility] would like to have staff from [facility] meet with Avelino in person before he moves there. Plan is to have two behavioral support specialists write up a Behavior Plan for the home's staff and then [facility] will need to train all the staff on the plan before he moves. ASD/IDD with associated agitation/combativeness Medication regimen: Risperdal 2 mg BID, melatonin 3 mg HS, guanfacine 2 mg BID. Optimize sleep wake schedule. Encourage play/things the patient enjoys. Appreciate psych recs. - extended current medication orders since beyond 30 days from admission In case of behavioral emergency: last required 05/25/24 13:00 1. Zyprexa 2.5mg PO or (5mg IM if necessary) (24 hr max of 20 mg - if IM given, obtain EKG) 2. Thorazine 12.5mg PO or (25mg IM if necessary) (24 hr max of 50mg) Code status: full DVT ppx: low risk, ambulatory FENGI: regular, safe tray Dispo: long-term residential treatment facility required, awaiting placement Admission and Anticipated Discharge Date Admission Date: April 28, 2024 Supervising Physician Co-Signing Physician Notes I also saw the patient and confirmed the clinical history and exam findings. There is a location picked out near [place] for placement, for the timing still not clear. He has some pictures of the potential placement which, according to the 1:1 employee, he has been closely studying. He remains nonverbal. I agree with the impression and plan as noted in the resident documentation. Mauri Phillips is a 19 yo male with PMHx of autism spectrum disorder, PTSD, IDD, and seizure disorder presenting to the hospital d/t aggressive behavior at his new living facility who was admitted for agitation at his new living facility. He is here for There were no acute events over night. This morning, pt was walking within the room and was cooperative. Talked with Sitter. No agitation/apprehension. No any fresh complains. Review of Systems Review of Systems: As per HPI Physical Exam Physical Exam: Gen: well appearing patient in NAD HEENT: NC/AT, no apparent obstruction Resp: clear to auscultation b/l, no increased work of breathing, no wheeze/rales/rhonchi CV: RRR, +s1/s2, no m/r/g Abd: soft, non-distended MSK: no obvious deformities, strength intact Skin: no rashes or bruising Neuro: no focal deficits Psych: appropriate mood and affect Results & Data Results & Data Vital Signs (Past 12 Hours) Vital Signs Temp Pulse Resp BP Pulse Ox O2 Del Method 06/14/24 08:09 36.3 C L 85 18 111/62 98 Room Air
--- NOTE | 2024-06-15 08:59 | Hospitalist Progress Note ---
Date of Service June 15, 2024 Assessment & Plan (1) Agitation: Plan: (2) Seizure disorder: Plan: Continue home meds; carbamazepine 400mg BID, clobazam 5mg HS. No current seizure like activity (3) Combative behavior: (4) Intellectual disability: Plan Pt is a 19 yo male with PMH of autism spectrum disorder, PTSD, IDD, and seizure disorder presenting to the hospital d/t aggressive behavior at his new living facility. He was discharged from [facility], after a prolonged stay, to [facility]. Pt previously living with foster parents who are no longer able to care for him at their home. Per CM note on 06/13/24: Working towards residential placement for the patient at [facility] in [place]. Per CM note on 06/12/24:Rebeca from [facility], Maci from [facility], and Allan from [facility] support met with Avelino late this morning. Maci is the behavioral manager support who will collaborate with the provider that the [facility] contracts with. [facility] has been updated that the hospital would like to be able to d/c Avelino by 06/20. Per CM note on 06/09/24: A teacher from [employer] [facility] that has worked with Avelino will meet with him this Sunday, Sunday and afternoon. Per CM note on 06/06/24: [facility] is working on moving forward with [facility] for residential placement in [place]. [facility] and [facility] will meet with Avelino on 06/12 at 1100. The behavioral manager support from [facility] will collaborate with the provider that [facility] contracts with. [facility] would like to have staff from [facility] meet with Avelino in person before he moves there. Plan is to have two behavioral support specialists write up a Behavior Plan for the home's staff and then [facility] will need to train all the staff on the plan before he moves. ASD/IDD with associated agitation/combativeness Medication regimen: Risperdal 2 mg BID, melatonin 3 mg HS, guanfacine 2 mg BID. Optimize sleep wake schedule. Encourage play/things the patient enjoys. Appreciate psych recs. - extended current medication orders since beyond 30 days from admission In case of behavioral emergency: last required 05/25/24 13:00 1. Zyprexa 2.5mg PO or (5mg IM if necessary) (24 hr max of 20 mg - if IM given, obtain EKG) 2. Thorazine 12.5mg PO or (25mg IM if necessary) (24 hr max of 50mg) Code status: full DVT ppx: low risk, ambulatory FENGI: regular, safe tray Dispo: long-term residential treatment facility required, awaiting placement Admission and Anticipated Discharge Date Admission Date: April 28, 2024 Supervising Physician Co-Signing Physician Notes I also saw the patient and confirmed the clinical history and exam findings. I agree with the impression and plan as noted in the resident documentation. There is a location picked out near [place] for placement, for the timing still not clear. Mauri Phillips is a 19 yo male with PMHx of autism spectrum disorder, PTSD, IDD, and seizure disorder presenting to the hospital d/t aggressive behavior at his new [facility] facility who was admitted for agitation at his new [facility] facility. He is here for There were no acute events over night. This morning, pt was walking within the room and was cooperative. Talked with Sitter. No agitation/apprehension. No any fresh complains. Review of Systems Review of Systems: As per HPI Physical Exam Physical Exam: Gen: well appearing patient in NAD HEENT: NC/AT, no apparent obstruction Resp: clear to auscultation b/l, no increased work of breathing, no wheeze/rales/rhonchi CV: RRR, +s1/s2, no m/r/g Abd: soft, non-distended MSK: no obvious deformities, strength intact Skin: no rashes or bruising Neuro: no focal deficits Psych: appropriate mood and affect Results & Data Results & Data Vital Signs (Past 12 Hours) Vital Signs Temp Pulse Resp BP Pulse Ox O2 Del Method 06/15/24 07:17 36.4 C L 71 18 116/75 98 Room Air
--- NOTE | 2024-06-16 18:11 | Hospitalist Progress Note ---
Date of Service June 16, 2024 Assessment & Plan (1) Agitation: Plan: (2) Seizure disorder: Plan: Continue home meds; carbamazepine 400mg BID, clobazam 5mg HS. No current seizure like activity (3) Combative behavior: (4) Intellectual disability: Plan Pt is a 19 yo male with PMH of autism spectrum disorder, PTSD, IDD, and seizure disorder presenting to the hospital d/t aggressive behavior at his new living facility. He was discharged from [facility], after a prolonged stay, to [facility]. Pt previously living with foster parents who are no longer able to care for him at their home. Per CM note on 06/13/24: Working towards residential placement for the patient at [facility] in [place]. Per CM note on 06/12/24:Rebeca from [facility], Maci from [facility], and Allan from [facility] support met with Avelino late this morning. Maci is the behavioral product support engineer who will collaborate with the provider that the [facility] contracts with. [facility] has been updated that the hospital would like to be able to d/c Avelino by 06/20. Per CM note on 06/09/24: A teacher from [employer] [facility] that has worked with Avelino will meet with him this Sunday, Sunday and afternoon. Per CM note on 06/06/24: [facility] is working on moving forward with [facility] for residential placement in [place]. [facility] and [facility] will meet with Avelino on 06/12 at 1100. The behavioral product support engineer from [facility] will collaborate with the provider that [facility] contracts with. [facility] would like to have staff from [facility] meet with Avelino in person before he moves there. Plan is to have two behavioral support specialists write up a Behavior Plan for the home's staff and then [facility] will need to train all the staff on the plan before he moves. ASD/IDD with associated agitation/combativeness Medication regimen: Risperdal 2 mg BID, melatonin 3 mg HS, guanfacine 2 mg BID. Optimize sleep wake schedule. Encourage play/things the patient enjoys. Appreciate psych recs. - extended current medication orders since beyond 30 days from admission In case of behavioral emergency: last required 05/25/24 13:00 1. Zyprexa 2.5mg PO or (5mg IM if necessary) (24 hr max of 20 mg - if IM given, obtain EKG) 2. Thorazine 12.5mg PO or (25mg IM if necessary) (24 hr max of 50mg) Code status: full DVT ppx: low risk, ambulatory FENGI: regular, safe tray Dispo: long-term residential treatment facility required, awaiting placement Admission and Anticipated Discharge Date Admission Date: April 28, 2024 Supervising Physician Co-Signing Physician Notes I personally examined the patient and verified all blackwell points of history and exam, discussed case, and agree with decision making with Dr Jensen no issues/needs identified. was taking shower at the time of my arrival. Vitals noted, was not able to physically see pt today given that he was in the bathroom. Autism with behavioral disturbances continue current care/supportive care/activities to do. placement pending. appears will be facility in [facility] - arrangements still being made; no need for changes today; has been doing well Subjective Tavon Phillips is a 19 yo male with PMHx of autism spectrum disorder, PTSD, IDD, and seizure disorder presenting to the hospital d/t aggressive behavior at his new living facility who was admitted for agitation at his new living facility. He is here for There were no acute events over night. This morning, pt was walking within the room and was cooperative. Talked with Sitter. No agitation/apprehension. No any fresh complains. Review of Systems Review of Systems: As per HPI Physical Exam Physical Exam: Gen: well appearing patient in NAD HEENT: NC/AT, no apparent obstruction Resp: clear to auscultation b/l, no increased work of breathing, no wheeze/rales/rhonchi CV: RRR, +s1/s2, no m/r/g Abd: soft, non-distended MSK: no obvious deformities, strength intact Skin: no rashes or bruising Neuro: no focal deficits Psych: appropriate mood and affect Results & Data Results & Data Vital Signs (Past 12 Hours) Vital Signs Pulse Resp BP Pulse Ox O2 Del Method 06/16/24 08:35 68 16 121/76 98 Room Air
--- NOTE | 2024-06-16 19:02 | Billing Data ---
Date of Service June 16, 2024 Coding Level of Care Code 83271 SUB INP/OBS CARE
--- NOTE | 2024-06-17 07:45 | Hospitalist Progress Note ---
Date of Service June 17, 2024 Assessment & Plan (1) Agitation: Plan: (2) Seizure disorder: Plan: Continue home meds; carbamazepine 400mg BID, clobazam 5mg HS. No current seizure like activity (3) Combative behavior: (4) Intellectual disability: Plan Pt is a 19 yo male with PMH of autism spectrum disorder, PTSD, IDD, and seizure disorder presenting to the hospital d/t aggressive behavior at his new living facility. He was discharged from [facility], after a prolonged stay, to [facility]. Pt previously living with foster parents who are no longer able to care for him at their home. Per CM note on 06/13/24: Working towards residential placement for the patient at [facility] in [place]. Per CM note on 06/12/24:Rebeca from [facility], Maci from [facility], and Allan from [facility] support met with Avelino late this morning. Maci is the behavioral field support representative who will collaborate with the provider that the [facility] contracts with. [facility] has been updated that the hospital would like to be able to d/c Avelino by 06/20. Per CM note on 06/09/24: A teacher from [employer] [facility] that has worked with Avelino will meet with him this Sunday, Sunday and afternoon. Per CM note on 06/06/24: [facility] is working on moving forward with [facility] for residential placement in [place]. [facility] and [facility] will meet with Avelino on 06/12 at 1100. The behavioral field support representative from [facility] will collaborate with the provider that [facility] contracts with. [facility] would like to have staff from [facility] meet with Avelino in person before he moves there. Plan is to have two behavioral support specialists write up a Behavior Plan for the home's staff and then [facility] will need to train all the staff on the plan before he moves. ASD/IDD with associated agitation/combativeness Medication regimen: Risperdal 2 mg BID, melatonin 3 mg HS, guanfacine 2 mg BID. Optimize sleep wake schedule. Encourage play/things the patient enjoys. Appreciate psych recs. - extended current medication orders since beyond 30 days from admission In case of behavioral emergency: last required 05/25/24 13:00 1. Zyprexa 2.5mg PO or (5mg IM if necessary) (24 hr max of 20 mg - if IM given, obtain EKG) 2. Thorazine 12.5mg PO or (25mg IM if necessary) (24 hr max of 50mg) Code status: full DVT ppx: low risk, ambulatory FENGI: regular, safe tray Dispo: long-term residential treatment facility required, awaiting placement Admission and Anticipated Discharge Date Admission Date: April 28, 2024 Supervising Physician Co-Signing Physician Notes I personally examined the patient and verified all blackwell points of history and exam, discussed case, and agree with decision making with Dr Jensen no issues/needs identified.playing in the room. Vitals noted, nad, walking in the room with a stuffed animal. breathing unlabored. appearing happy. Autism with behavioral disturbances continue current care/supportive care/activities to do. placement pending. appears will be facility in [facility] - arrangements still being made Subjective Tavon Phillips is a 19 yo male with PMHx of autism spectrum disorder, PTSD, IDD, and seizure disorder presenting to the hospital d/t aggressive behavior at his new living facility who was admitted for agitation at his new living facility. He is here for There were no acute events over night. This morning, pt was walking within the room and was cooperative. Talked with Sitter. No agitation/apprehension. No any fresh complains. Review of Systems Review of Systems: As per HPI Physical Exam Physical Exam: Gen: well appearing patient in NAD HEENT: NC/AT, no apparent obstruction Resp: clear to auscultation b/l, no increased work of breathing, no wheeze/rales/rhonchi CV: RRR, +s1/s2, no m/r/g Abd: soft, non-distended MSK: no obvious deformities, strength intact Skin: no rashes or bruising Neuro: no focal deficits Psych: appropriate mood and affect
--- NOTE | 2024-06-17 13:20 | Billing Data ---
Date of Service June 17, 2024 Coding Level of Care Code 22403 SUB INP/OBS CARE 05/17MIN
--- NOTE | 2024-06-18 07:25 | Hospitalist Progress Note ---
Date of Service June 18, 2024 Assessment & Plan (1) Agitation: Plan: (2) Seizure disorder: Plan: Continue home meds; carbamazepine 400mg BID, clobazam 5mg HS. No current seizure like activity (3) Combative behavior: (4) Intellectual disability: Plan Pt is a 19 yo male with PMH of autism spectrum disorder, PTSD, IDD, and seizure disorder presenting to the hospital d/t aggressive behavior at his new living facility. He was discharged from [facility], [facility]. Pt previously living with foster parents who are no longer able to care for him at their home. Per CM note on 06/13/24: Working towards residential placement for the patient at [facility] in [place]. Per CM note on 06/12/24:Rebeca from [facility], Maci from [facility], and Allan from [facility] support met with Avelino late this morning. Maci is the behavioral network support who will collaborate with the provider that the [facility] contracts with. [facility] has been updated that the hospital would like to be able to d/c Avelino by 06/20. Per CM note on 06/09/24: A teacher from [employer] [facility] that has worked with Avelino will meet with him this Sunday, Sunday and afternoon. Per CM note on 06/06/24: [facility] is working on moving forward with [facility] for residential placement in [place]. [facility] and [facility] will meet with Avelino on 06/12 at 1100. The behavioral network support from [facility] will collaborate with the provider that [facility] contracts with. [facility] would like to have staff from [facility] meet with Avelino in person before he moves there. Plan is to have two behavioral support specialists write up a Behavior Plan for the home's staff and then [facility] will need to train all the staff on the plan before he moves. ASD/IDD with associated agitation/combativeness Medication regimen: Risperdal 2 mg BID, melatonin 3 mg HS, guanfacine 2 mg BID. Optimize sleep wake schedule. Encourage play/things the patient enjoys. Appreciate psych recs. - extended current medication orders since beyond 30 days from admission In case of behavioral emergency: last required 05/25/24 13:00 1. Zyprexa 2.5mg PO or (5mg IM if necessary) (24 hr max of 20 mg - if IM given, obtain EKG) 2. Thorazine 12.5mg PO or (25mg IM if necessary) (24 hr max of 50mg) Code status: full DVT ppx: low risk, ambulatory FENGI: regular, safe tray Dispo: long-term residential treatment facility required, awaiting placement Admission and Anticipated Discharge Date Admission Date: April 28, 2024 Supervising Physician Co-Signing Physician Notes I personally examined the patient and verified all blackwell points of history and exam, discussed case, and agree with decision making with Dr Jensen no problems no issues. sleeping. dad present. discussed what has been helping/etc and possible strategies to help make transition more smooth for avelino allenlindsay time. Vitals noted, nad, sleeping. no issues noted Autism with behavioral disturbances continue current care/supportive care/activities to do. updated dad, discussed strategies to make next transition have a higher chance of being easier on him. placement pending. appears will be facility [facility] - arrangements still being made Subjective Tavon Phillips is a 19 yo male with PMHx of autism spectrum disorder, PTSD, IDD, and seizure disorder presenting to the hospital d/t aggressive behavior at his new living facility who was admitted for agitation at his new living facility. He is here for There were no acute events over night. This morning, pt was walking within the room and was cooperative. Talked with Sitter. No agitation/apprehension. No any fresh complains. Review of Systems Review of Systems: As per HPI Physical Exam Physical Exam: Gen: well appearing patient in NAD HEENT: NC/AT, no apparent obstruction Resp: clear to auscultation b/l, no increased work of breathing, no wheeze/rales/rhonchi CV: RRR, +s1/s2, no m/r/g Abd: soft, non-distended MSK: no obvious deformities, strength intact Skin: no rashes or bruising Neuro: no focal deficits Psych: appropriate mood and affect Results & Data Results & Data Vital Signs (Past 12 Hours) Vital Signs Temp Pulse Pulse Resp BP Pulse Ox O2 Del Method 06/18/24 07:05 36.4 C L 64 14 108/71 100 Room Air 06/17/24 21:22 36.8 C 85 133/72 93 Room Air
--- NOTE | 2024-06-18 16:30 | Billing Data ---
Date of Service June 18, 2024 Coding Level of Care Code 60234 SUB INP/OBS CARE
--- NOTE | 2024-06-19 07:36 | Hospitalist Progress Note ---
Date of Service June 19, 2024 Assessment & Plan (1) Agitation: Plan: (2) Seizure disorder: Plan: Continue home meds; carbamazepine 400mg BID, clobazam 5mg HS. No current seizure like activity (3) Combative behavior: (4) Intellectual disability: Plan Pt is a 19 yo male with PMH of autism spectrum disorder, PTSD, IDD, and seizure disorder presenting to the hospital d/t aggressive behavior at his new living facility. He was discharged from [facility], after a prolonged stay, to [facility]. Pt previously living with foster parents who are no longer able to care for him at their home. Per CM note on 06/13/24: Working towards residential placement for the patient at [facility] in [place]. Per CM note on 06/12/24:Rebeca from [facility], Maci from [facility], and Allan from [facility] support met with Avelino late this morning. Maci is the behavioral emotional support teacher who will collaborate with the provider that the [facility] contracts with. [facility] has been updated that the hospital would like to be able to d/c Avelino by 06/20. Per CM note on 06/09/24: A teacher from [employer] [facility] that has worked with Avelino will meet with him this Sunday, Sunday and afternoon. Per CM note on 06/06/24: [facility] is working on moving forward with [facility] for residential placement in [place]. [facility] and [facility] Services will meet with Avelino on 06/12 at 1100. The behavioral emotional support teacher from [facility] will collaborate with the provider that [facility] contracts with. [facility] would like to have staff from [facility] meet with Avelino in person before he moves there. Plan is to have two behavioral support specialists write up a Behavior Plan for the home's staff and then [facility] will need to train all the staff on the plan before he moves. ASD/IDD with associated agitation/combativeness Medication regimen: Risperdal 2 mg BID, melatonin 3 mg HS, guanfacine 2 mg BID. Optimize sleep wake schedule. Encourage play/things the patient enjoys. Appreciate psych recs. - extended current medication orders since beyond 30 days from admission In case of behavioral emergency: last required 05/25/24 13:00 1. Zyprexa 2.5mg PO or (5mg IM if necessary) (24 hr max of 20 mg - if IM given, obtain EKG) 2. Thorazine 12.5mg PO or (25mg IM if necessary) (24 hr max of 50mg) Code status: full DVT ppx: low risk, ambulatory FENGI: regular, safe tray Dispo: long-term residential treatment facility required, awaiting placement Admission and Anticipated Discharge Date Admission Date: April 28, 2024 Supervising Physician Co-Signing Physician Notes I personally examined the patient and verified all blackwell points of history and exam, discussed case, and agree with decision making with Dr Jensen no issues today. playing minecraft. vitals noted nad heent nc at mmm breathing unlabored no accessory muscles good effort skin no rashes no pallor or icterus Autism with behavioral disturbances continue current care/supportive care/activities to do. updated dad, discussed strategies to make next transition have a higher chance of being easier on him. placement still pending. appears will be facility in [facility] - arrangements still being made Subjective Tavon Phillips is a 19 yo male with PMHx of autism spectrum disorder, PTSD, IDD, and seizure disorder presenting to the hospital d/t aggressive behavior at his new living facility who was admitted for agitation at his new living facility. He is here for There were no acute events over night. This morning, pt was walking within the room and was cooperative. Talked with Sitter. No agitation/apprehension. No any fresh complains. Review of Systems Review of Systems: As per HPI Physical Exam Physical Exam: Gen: well appearing patient in NAD HEENT: NC/AT, no apparent obstruction Resp: clear to auscultation b/l, no increased work of breathing, no wheeze/rales/rhonchi CV: RRR, +s1/s2, no m/r/g Abd: soft, non-distended MSK: no obvious deformities, strength intact Skin: no rashes or bruising Neuro: no focal deficits Psych: appropriate mood and affect
--- NOTE | 2024-06-19 18:07 | Billing Data ---
Date of Service June 19, 2024 Coding Level of Care Code 77125 SUB INP/OBS CARE
--- NOTE | 2024-06-20 07:30 | Hospitalist Progress Note ---
Date of Service June 20, 2024 Assessment & Plan (1) Agitation: Plan: (2) Seizure disorder: Plan: Continue home meds; carbamazepine 400mg BID, clobazam 5mg HS. No current seizure like activity (3) Combative behavior: (4) Intellectual disability: Plan Pt is a 19 yo male with PMH of autism spectrum disorder, PTSD, IDD, and seizure disorder presenting to the hospital d/t aggressive behavior at his new living facility. He was discharged [facility], after a prolonged stay, to [facility]. Pt previously living with foster parents who are no longer able to care for him at their home. Per CM note on 06/20/24: Working towards residential placement for the patient at [facility] in [place]. Per CM note on 06/12/24:Rebeca from [facility], Maci from [facility], and Allan from [facility] support met with Avelino late this morning. Maci is the behavioral legal support manager who will collaborate with the provider that the [facility] contracts with. [facility] has been updated that the hospital would like to be able to d/c Avelino by 06/20. Per CM note on 06/09/24: A teacher from [employer] [facility] that has worked with Avelino will meet with him this Sunday, Sunday and afternoon. Per CM note on 06/06/24: [facility] is working on moving forward with [facility] for residential placement in [place]. [facility] and [facility] Support Services will meet with Avelino on 06/12 at 1100. The behavioral legal support manager from [facility] will collaborate with the provider that [facility] contracts with. [facility] would like to have staff from [facility] meet with Avelino in person before he moves there. Plan is to have two behavioral support specialists write up a Behavior Plan for the home's staff and then [facility] will need to train all the staff on the plan before he moves. ASD/IDD with associated agitation/combativeness Medication regimen: Risperdal 2 mg BID, melatonin 3 mg HS, guanfacine 2 mg BID. Optimize sleep wake schedule. Encourage play/things the patient enjoys. Appreciate psych recs. - extended current medication orders since beyond 30 days from admission In case of behavioral emergency: last required 05/25/24 13:00 1. Zyprexa 2.5mg PO or (5mg IM if necessary) (24 hr max of 20 mg - if IM given, obtain EKG) 2. Thorazine 12.5mg PO or (25mg IM if necessary) (24 hr max of 50mg) Code status: full DVT ppx: low risk, ambulatory FENGI: regular, safe tray Dispo: long-term residential treatment facility required, awaiting placement Admission and Anticipated Discharge Date Admission Date: April 28, 2024 Supervising Physician Co-Signing Physician Notes I personally examined the patient and verified all blackwell points of history and exam, discussed case, and agree with decision making with Dr Jensen no issues today. playing minecraft again. vitals noted nad heent nc at mmm breathing unlabored no accessory muscles good effort skin no rashes no pallor or icterus Autism with behavioral disturbances continue current care/supportive care/activities to do. updated dad, discussed strategies to make next transition have a higher chance of being easier on him. placement still pending. appears will be facility in [facility] - arrangements still being made but stable when set up previous leukocytosis - thought to be demargination/stress response given his circumstances surrounding admission -> rechecked - mild asymptomatic leukopenia - either "normally abnormal" (ie just outside of standard deviations but still within a reasonble WBC range of 4-12) or mild due to psych meds. follow periodically Subjective Tavon Phillips is a 19 yo male with PMHx of autism spectrum disorder, PTSD, IDD, and seizure disorder presenting to the hospital d/t aggressive behavior at his new living facility who was admitted for agitation at his new living facility. He is here for 52 days. There were no acute events over night. This morning, pt was walking within the room and was cooperative. Talked with Sitter. No agitation/apprehension. No any fresh complains. Review of Systems Review of Systems: As per HPI Physical Exam Physical Exam: Gen: well appearing patient in NAD HEENT: NC/AT, no apparent obstruction Resp: clear to auscultation b/l, no increased work of breathing, no wheeze/rales/rhonchi CV: RRR, +s1/s2, no m/r/g Abd: soft, non-distended MSK: no obvious deformities, strength intact Skin: no rashes or bruising Neuro: no focal deficits Psych: appropriate mood and affect Results & Data Results & Data Vital Signs (Past 12 Hours) Vital Signs Temp Pulse Resp BP Pulse Ox O2 Del Method 06/20/24 07:05 36.5 C 65 16 117/75 100 Room Air
[2024-06-20 09:15] LABS: Basophils # (auto) 0.02 K/uL (0.00-0.20); Basophils % (auto) 0.5 %; Eosinophils # (auto) 0.08 K/uL (0.00-0.50); Eosinophils % (auto) 1.9 %; Hematocrit (blood only) 42.4 % (42.0-52.0); Hemoglobin 14.5 g/dl (14.0-18.0); Lymphocytes # (auto) 2.14 K/uL (1.20-3.40); Lymphocytes % (auto) 49.5 %; Mean Corpuscular Hemoglobin 29.7 pg (25.0-34.0); Mean Corpuscular Hgb Conc 34.2 g/dL (32.0-36.0); Mean Corpuscular Volume 86.9 fL (80.0-100.0); Mean Platelet Volume 9.7 fL (9.4-12.4); Monocytes # (auto) 0.43 K/uL (0.11-0.59); Neutrophils # (auto) 1.65 K/uL (1.40-6.50); Neutrophils % (auto) 38.1 %; Platelet Count 246 K/uL (130-400); RDW Coefficient of Variation 12.8 % (11.5-14.5); RDW Standard Deviation 40.8 fL (36.4-46.3); Red Blood Count 4.88 M/uL (4.70-6.10); White Blood Count 4.32 K/ul (4.8-10.8)
--- NOTE | 2024-06-20 17:42 | Billing Data ---
Date of Service June 20, 2024 Coding Level of Care Code 36605 SUB INP/OBS CARE
--- NOTE | 2024-06-21 06:54 | Hospitalist Progress Note ---
Date of Service June 21, 2024 Assessment & Plan (1) Agitation: Plan: (2) Seizure disorder: Plan: Continue home meds; carbamazepine 400mg BID, clobazam 5mg HS. No current seizure like activity (3) Combative behavior: (4) Intellectual disability: Plan 19 yo male with PMH of autism spectrum disorder, PTSD, IDD, and seizure disorder presenting to the hospital d/t aggressive behavior at his new living facility. He was discharged from [facility], after a prolonged stay, to [facility]. Pt previously living with foster parents who are no longer able to care for him at their home. Per CM note on 06/20/24: Working towards residential placement for the patient at [facility] in [place]. ASD/IDD with associated agitation/combativeness Medication regimen: Risperdal 2 mg BID, melatonin 3 mg HS, guanfacine 2 mg BID. Optimize sleep wake schedule. Encourage play/things the patient enjoys. Appreciate psych recs. - Extended current medication orders since beyond 30 days from admission In case of behavioral emergency: 1. Zyprexa 2.5mg PO or (5mg IM if necessary) (24 hr max of 20 mg - if IM given, obtain EKG) 2. Thorazine 12.5mg PO or (25mg IM if necessary) (24 hr max of 50mg) Code status: full DVT ppx: low risk, ambulatory FENGI: regular, safe tray Dispo: long-term residential treatment facility required, awaiting placement Admission and Anticipated Discharge Date Admission Date: April 28, 2024 Supervising Physician Co-Signing Physician Notes I personally examined the patient and verified all blackwell points of history and exam, discussed case, and agree with decision making with Dr Jensen no issues today. pacing in the room. vitals noted nad heent nc at mmm breathing unlabored no accessory muscles good effort skin no rashes no pallor or icterus Autism with behavioral disturbances continue current care/supportive care/ activities to do. previously updated dad, discussed strategies to make next transition have a higher chance of being easier on him. placement still pending. appears will be facility in [facility] - arrangements still being made but stable when set up previous leukocytosis - thought to be demargination/stress response given his circumstances surrounding admission -> rechecked - mild asymptomatic leukopenia - either "normally abnormal" (ie just outside of standard deviations but still within a reasonble WBC range of 4-12) or mild due to psych meds. follow periodically Subjective No acute event ON. He was walking around in room when I saw him. No new changes per sitter on bedside. Physical Exam Physical Exam: Constitutional: Walking around room. CV: Looks well-perfused Resp: no increased work of breathing MSK: no gross deformities noticed. walking normally Neuro: Alert, no new change per nurse by side Resident Activity Tracking Resident Involvement: Resident Care Provided Care Provided: Adult [facility] Medicine
--- NOTE | 2024-06-21 15:51 | Billing Data ---
Date of Service June 21, 2024 Coding Level of Care Code 53971 SUB INP/OBS CARE
--- NOTE | 2024-06-22 07:32 | Hospitalist Progress Note ---
Date of Service June 22, 2024 Assessment & Plan (1) Agitation: Plan: (2) Seizure disorder: Plan: Continue home meds; carbamazepine 400mg BID, clobazam 5mg HS. No current seizure like activity (3) Combative behavior: (4) Intellectual disability: Plan 19 yo male with PMH of autism spectrum disorder, PTSD, IDD, and seizure disorder presenting to the hospital d/t aggressive behavior at his new living facility. He was discharged from [facility], after a prolonged stay, to [facility]. Pt previously living with foster parents who are no longer able to care for him at their home. Per CM note on 06/20/24: Working towards residential placement for the patient at [facility] in [place]. # ASD/IDD with associated agitation/combativeness: 1:1 observation ongoing; appreciate medical staff Medication regimen: Risperdal 2 mg BID, melatonin 3 mg HS, guanfacine 2 mg BID. Optimize sleep wake schedule. Encourage play/things the patient enjoys. Appreciate psych recs. - Extended current medication orders since beyond 30 days from admission In case of behavioral emergency: 1. Zyprexa 2.5mg PO or (5mg IM if necessary) (24 hr max of 20 mg - if IM given, obtain EKG) 2. Thorazine 12.5mg PO or (25mg IM if necessary) (24 hr max of 50mg) #Leucocytosis: - He had leucocytosis during Apr. - Repeat WBC yesterday; resolving. - No signs of infection noted so far. #Seizure disorder - No seizure after admission - Home med Continued. Carbamazepine 400 mg BID Code status: full DVT ppx: low risk, ambulatory FENGI: regular, safe tray Dispo: long-term residential treatment facility required, awaiting placement Admission and Anticipated Discharge Date Admission Date: April 28, 2024 Supervising Physician Co-Signing Physician Notes I personally examined the patient and verified all blackwell points of history and exam, discussed case, and agree with decision making with Dr Jensen no problems. just got showered vitals noted nad heent nc at mmm breathing unlabored no accessory muscles good effort skin no rashes no pallor or icterus Autism with behavioral disturbances continue current care/supportive care/activities to do. previously updated dad, discussed strategies to make next transition have a higher chance of being easier on him. placement still pending. will be facility in [place] area - arrangements still being made but stable to go there when everything is set up previous leukocytosis - thought to be demargination/stress response given his circumstances surrounding admission -> rechecked - mild asymptomatic leukopenia - either "normally abnormal" (ie just outside of standard deviations but still within a reasonble WBC range of 4-12) or mild due to psych meds. follow periodically Subjective No acute event ON. He was taking shower per staff on bedside. No new changes per staff. Review of Systems Review of Systems: As per HPI Results & Data Results & Data Vital Signs (Past 12 Hours) Vital Signs Temp Pulse Resp BP Pulse Ox O2 Del Method 06/21/24 19:49 36.4 C L 72 18 150/82 H 97 Room Air Resident Activity Tracking Resident Involvement: Resident Care Provided Care Provided: Adult Hospital Medicine
[2024-06-22 08:39] VITALS: RESP 16
--- NOTE | 2024-06-22 11:13 | Billing Data ---
Date of Service June 22, 2024 Coding Level of Care Code 21882 SUB INP/OBS CARE
[2024-06-23 07:21] VITALS: PULSE 79
--- NOTE | 2024-06-23 10:00 | Hospitalist Progress Note ---
Date of Service June 23, 2024 Assessment & Plan (1) Agitation: Plan: (2) Seizure disorder: (3) Combative behavior: (4) Intellectual disability: Plan 19 yo male with PMH of autism spectrum disorder, PTSD, IDD, and seizure disorder presenting to the hospital d/t aggressive behavior at his new living facility. He was discharged from [facility], after a prolonged stay, to [facility]. Pt previously living with foster parents who are no longer able to care for him at their home. Placement: Working towards residential placement for the patient at [facility] in [place]. This may be available 06/24/2024 with transport being arranged by [place]. On discharge will need 30-day prescription for all medications sent so that these can be filled by facility day of discharge. # ASD/IDD with associated agitation/combativeness: 1:1 observation ongoing; appreciate medical staff Medication regimen: Risperdal 2 mg BID, melatonin 3 mg HS, guanfacine 2 mg BID. Optimize sleep wake schedule. Encourage play/things the patient enjoys. Appreciate psych recs. - Extended current medication orders since beyond 30 days from admission In case of behavioral emergency: 1. Zyprexa 2.5mg PO or (5mg IM if necessary) (24 hr max of 20 mg - if IM given, obtain EKG) 2. Thorazine 12.5mg PO or (25mg IM if necessary) (24 hr max of 50mg) #Leucocytosis: - He had leucocytosis during Apr. - Repeat WBC yesterday; resolving. - No signs of infection noted so far. #Seizure disorder - No seizure after admission - Home med Continued. Carbamazepine 400 mg BID Code status: full DVT ppx: low risk, ambulatory FENGI: regular, safe tray Dispo: long-term residential treatment facility required, awaiting placement Admission and Anticipated Discharge Date Admission Date: April 28, 2024 Subjective No changes overnight. No acute overnight events. Reviewed nursing staff, no concerns. Discussed with case management, placement likely available tomorrow Physical Exam Physical Exam: General: Alert and oriented to name. Finishing eating breakfast and walking around the room. No acute distress. Withdrawn affect. HEENT: Atraumatic, normocephalic. Pulm: Symmetrical chest rise. No increased work of breathing. No respiratory distress. Extremities: Walking around the room independently, moving all extremities equally Results & Data Results & Data Vital Signs (Past 12 Hours) Vital Signs Temp Pulse Resp BP Pulse Ox O2 Del Method 06/23/24 07:19 36.5 C 79 16 120/75 98 Room Air PG Care Time/CCT Total # of Minutes Spent Total Time Spent with Patient: Total time spent is greater than 50% in coordination of care (as documented) at patient's floor/unit and/or counseling patient: Coding Level of Care Code 46923 SUB INP/OBS CARE 2/35MIN Diagnoses Agitation R45.1 Seizure disorder G40.909 Combative behavior R46.89 Intellectual disability F79
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
[2024-06-24 09:47] VITALS: BP 128/71; TEMP 97.9; O2SAT 100
== END 2024-06-24 12:50 | disposition home or self-care (01) | DRG 884 ==
LOC: ED 18:37 → EDINP 04-28 16:11 → SUATTDRO 04-28 16:11 → EDINP 04-28 17:33 → 3N 05-03 09:53